=== PATIENT | female | born 1950 | race Caucasian/White ===

== ENCOUNTER 2023-09-14 15:45 | Emergency (ER) | payer MEDICARE ==
[~2023-09-14] VITALS: Ht 160 cm; Wt 46.9 kg
[~2023-09-14 15:45] MED LIST: DULOXETINE CAP 30MG; LEVOTHYROXIN TAB 50MCG; RANITIDINE TAB 300MG
[2023-09-14 17:07] LABS: BASOPHILS % (AUTO) 0.6 % (0-1); EOSINOPHILS % (AUTO) 0.6 % (0-6); HEMATOCRIT 37.6 % (35.0-45.0); HEMOGLOBIN 12.6 g/dl (12.0-16.0); LYMPHOCYTES # (AUTO) 1.1 X10'3 (1.1-4.8); LYMPHOCYTES % (AUTO) 18.2 % (21-51); MEAN CORPUSCULAR HEMOGLOBIN 30.1 PG (27.0-31.0); MEAN CORPUSCULAR HGB CONC 33.4 g/dL (33.0-36.5); MEAN CORPUSCULAR VOLUME 90.2 FL (78-98); MEAN PLATELET VOLUME 7.8 FL (7.4-10.4); MONOCYTES # (AUTO) 0.4 X10'3 (0-0.9); MONOCYTES % (AUTO) 6.2 % (2-12); NEUTROPHILS # (AUTO) 4.7 X10'3 (1.8-7.7); NEUTROPHILS % (AUTO) 74.4 % (42-75); PLATELET COUNT 266 X10'3 (140-440); RED BLOOD COUNT 4.17 X10'6 (4.20-5.60); RED CELL DISTRIBUTION WIDTH 14.9 % (11.5-14.5); WHITE BLOOD COUNT 6.3 X10'3 (4.5-11.0)
[2023-09-14 17:21] LABS: ALANINE AMINOTRANSFERASE 30 U/L (12-78); ALBUMIN 3.5 G/DL (3.4-5.0); ALBUMIN/GLOBULIN RATIO 0.9 (1.1-1.5); ALKALINE PHOSPHATASE 45 IU/L (46-116); ANION GAP 8 (8-16); ASPARTATE AMINO TRANSFERASE 24 U/L (10-37); BILIRUBIN,TOTAL 0.3 MG/DL (0.1-1.0); BLOOD UREA NITROGEN 21 MG/DL (7-18); BUN/CREATININE RATIO 28.8 (10.0-20.0); CALCIUM 8.7 MG/DL (8.5-10.1); CHLORIDE 102 MMOL/L (99-107); CREATININE 0.73 MG/DL (0.40-0.90); GLUCOSE 104 MG/DL (70-104); LIPASE 38 U/L (16-77); POTASSIUM 3.9 MMOL/L (3.5-5.1); SODIUM 135 MMOL/L (135-145); TOTAL CARBON DIOXIDE 25.2 MMOL/L (24-32); TOTAL PROTEIN 7.4 G/DL (6.4-8.2); eCRCL 49 ML/MIN; eGFR 78 ML/MIN
[2023-09-14 17:41] LABS: BILIRUBIN,URINE NEGATIVE (Neg); CLARITY,URINE CLEAR (Clear); COLOR,URINE STRAW (Yellow); GLUCOSE, URINE NEGATIVE (Neg); KETONES,URINE NEGATIVE (Neg); LEUKOCYTE ESTERASE ,URINE NEGATIVE (Neg); NITRITES, URINE NEGATIVE (Neg); OCCULT BLOOD,URINE SMALL (Neg); PROTEIN,URINE NEGATIVE (Neg); UROBILINOGEN,URINE 0.2 E.U/dL (0.2-1.0)
[2023-09-14 17:44] LABS: UA COLLECTION TYPE CLN CATCH MIDSTREAM
[2023-09-14 17:50] LABS: WBC,URINE NONE SEEN /HPF (0-4)
[2023-09-14 17:51] LABS: BACTERIA,URINE NONE SEEN /HPF (Neg); MUCUS STRANDS NONE SEEN /LPF (Neg); RBC,URINE 0-2 /HPF (0-2); SQUAMOUS EPITHELIAL CELL,UR NONE SEEN /LPF (FEW)
[2023-09-14 18:39] LABS: PRO BRAIN NATRIURETIC PEPTIDE 148 PG/ML (0-450)
[2023-09-14 19:53] VITALS: BP 126/75; PULSE 68; RESP 14; TEMP 98.2; O2SAT 99
== END 2023-09-14 19:57 | disposition home or self-care (01) ==
LOC: ER 15:46
DX: B34.9 Viral infection, unspecified (principal); Z20.822 Contact with and (suspected) exposure to COVID-19
CPT/HCPCS: 36415; 71045; 80053; 81001; 83690; 83880; 84484; 85025; 87811; 93005; 99285

== ENCOUNTER 2024-09-24 12:35 | Emergency (ER) | payer MEDICARE, MEDICAID ==
[~2024-09-24] VITALS: Ht 160 cm; Wt 44.4 kg
[2024-09-24 12:37] VITALS: TEMP 97
[2024-09-24 13:42] LABS: BASOPHILS % (AUTO) 0.1 % (0-1); EOSINOPHILS % (AUTO) 0.2 % (0-6); HEMATOCRIT 34.7 % (35.0-45.0); HEMOGLOBIN 11.6 g/dl (12.0-16.0); LYMPHOCYTES # (AUTO) 0.8 X10'3 (1.1-4.8); LYMPHOCYTES % (AUTO) 7.1 % (21-51); MEAN CORPUSCULAR HEMOGLOBIN 30.2 PG (27.0-31.0); MEAN CORPUSCULAR HGB CONC 33.5 g/dL (33.0-36.5); MEAN CORPUSCULAR VOLUME 89.9 FL (78-98); MEAN PLATELET VOLUME 8.3 FL (7.4-10.4); MONOCYTES # (AUTO) 1.1 X10'3 (0-0.9); NEUTROPHILS # (AUTO) 9.2 X10'3 (1.8-7.7); NEUTROPHILS % (AUTO) 82.6 % (42-75); PLATELET COUNT 327 X10'3 (140-440); RED BLOOD COUNT 3.86 X10'6 (4.20-5.60); RED CELL DISTRIBUTION WIDTH 14.4 % (11.5-14.5); WHITE BLOOD COUNT 11.1 X10'3 (4.5-11.0)
[2024-09-24 14:11] LABS: ALANINE AMINOTRANSFERASE 24 U/L (12-78); ALBUMIN 2.6 G/DL (3.4-5.0); ALBUMIN/GLOBULIN RATIO 0.5 (1.1-1.5); ALKALINE PHOSPHATASE 66 IU/L (46-116); ANION GAP 8 (8-16); ASPARTATE AMINO TRANSFERASE 16 U/L (10-37); BILIRUBIN,TOTAL 0.5 MG/DL (0.1-1.0); BLOOD UREA NITROGEN 9 MG/DL (7-18); BUN/CREATININE RATIO 12.7 (10.0-20.0); CALCIUM 8.8 MG/DL (8.5-10.1); CHLORIDE 94 MMOL/L (99-107); CREATININE 0.71 MG/DL (0.40-0.90); GLUCOSE 111 MG/DL (70-104); POTASSIUM 3.1 MMOL/L (3.5-5.1); SODIUM 131 MMOL/L (135-145); TOTAL CARBON DIOXIDE 29.2 MMOL/L (24-32); TOTAL PROTEIN 7.8 G/DL (6.4-8.2); eCRCL 47 ML/MIN; eGFR 80 ML/MIN
[2024-09-24 14:19] LABS: PRO BRAIN NATRIURETIC PEPTIDE 2064 PG/ML (0-450)
[2024-09-24 15:05] VITALS: BP 107/66; PULSE 81; RESP 16; O2SAT 96
== END 2024-09-24 15:08 | disposition home or self-care (01) ==
LOC: ER 12:35
DX: R00.2 Palpitations (principal); F32.A Depression, unspecified; R50.9 Fever, unspecified; Z88.2 Allergy status to sulfonamides
CPT/HCPCS: 36415; 71045; 80053; 83880; 84484; 85025; 93005; 99285

== ENCOUNTER 2024-11-19 20:46 | Emergency (ER) | payer MEDICARE, MEDICAID ==
[~2024-11-19] VITALS: Ht 165.1 cm; Wt 45.0 kg
[2024-11-19 20:57] VITALS: BP 103/53; PULSE 69; RESP 14; O2SAT 99
[2024-11-19 21:20] LABS: BASOPHILS % (AUTO) 0.7 % (0-1); EOSINOPHILS % (AUTO) 0.7 % (0-6); HEMATOCRIT 35.4 % (35.0-45.0); HEMOGLOBIN 12.2 g/dl (12.0-16.0); LYMPHOCYTES # (AUTO) 1.7 X10'3 (1.1-4.8); LYMPHOCYTES % (AUTO) 28.3 % (21-51); MEAN CORPUSCULAR HEMOGLOBIN 30.9 PG (27.0-31.0); MEAN CORPUSCULAR HGB CONC 34.5 g/dL (33.0-36.5); MEAN CORPUSCULAR VOLUME 89.5 FL (78-98); MEAN PLATELET VOLUME 7.9 FL (7.4-10.4); MONOCYTES # (AUTO) 0.5 X10'3 (0-0.9); MONOCYTES % (AUTO) 7.8 % (2-12); NEUTROPHILS # (AUTO) 3.8 X10'3 (1.8-7.7); NEUTROPHILS % (AUTO) 62.5 % (42-75); PLATELET COUNT 250 X10'3 (140-440); RED BLOOD COUNT 3.95 X10'6 (4.20-5.60); RED CELL DISTRIBUTION WIDTH 15.1 % (11.5-14.5); WHITE BLOOD COUNT 6.2 X10'3 (4.5-11.0)
[2024-11-19 21:34] LABS: ALANINE AMINOTRANSFERASE 27 U/L (12-78); ALBUMIN 3.5 G/DL (3.4-5.0); ALBUMIN/GLOBULIN RATIO 0.8 (1.1-1.5); ALKALINE PHOSPHATASE 42 IU/L (46-116); ANION GAP 2 (8-16); ASPARTATE AMINO TRANSFERASE 18 U/L (10-37); BILIRUBIN,TOTAL 0.3 MG/DL (0.1-1.0); BLOOD UREA NITROGEN 18 MG/DL (7-18); BUN/CREATININE RATIO 28.1 (10.0-20.0); CALCIUM 8.6 MG/DL (8.5-10.1); CHLORIDE 105 MMOL/L (99-107); CREATININE 0.64 MG/DL (0.40-0.90); GLUCOSE 130 MG/DL (70-104); POTASSIUM 3.6 MMOL/L (3.5-5.1); SODIUM 137 MMOL/L (135-145); TOTAL CARBON DIOXIDE 30.3 MMOL/L (24-32); TOTAL PROTEIN 7.7 G/DL (6.4-8.2); eCRCL 53 ML/MIN; eGFR 90 ML/MIN
[2024-11-19 21:43] LABS: PRO BRAIN NATRIURETIC PEPTIDE 115 PG/ML (0-450)
[2024-11-20 01:27] LABS: D-DIMER 0.31 MG/L FEU (0-0.50)
[2024-11-20 01:34] VITALS: TEMP 98.6
== END 2024-11-20 01:36 | disposition home or self-care (01) ==
LOC: ER 20:46
DX: R07.9 Chest pain, unspecified (principal); M54.6 Pain in thoracic spine; F32.A Depression, unspecified; F41.9 Anxiety disorder, unspecified; Z88.2 Allergy status to sulfonamides
CPT/HCPCS: 36415; 71045; 80053; 83880; 84484; 85025; 85379; 93005; 99285

== ENCOUNTER 2025-04-24 18:08 | Inpatient (IN) | payer MEDICARE, MEDICAID ==
[~2025-04-24] VITALS: Ht 160 cm; Wt 42.8 kg
[~2025-04-24 18:08] MED LIST changes: +GABA-530 PO; +LEVO50TA8 PO; -LEVOTHYROXIN TAB 50MCG; +PANT40TA54 PO; +QUET25TA36 PO; -RANITIDINE TAB 300MG; +SERT-432 PO
--- NOTE | 2025-04-24 18:49 | Physician Documentation ---
History of Present Illness ~ Chief Complaint: Mental Health Eval Stated Complaint: SI Time Seen by MD: 18:45 Primary Medical Doctor: VALE Source: patient, family Mode of Arrival: POV Exam Limitations: no limitations HPI 74-year-old female with history of anxiety and depression has been following her mental health provider and having changes to her medications which has included changing from Prozac which she was on for approximately 4-6 weeks to Zoloft which she has now stopped with increased anxiety and depression as well as feelings of hopelessness and suicide. Patient states that 1 of the most difficult problems of hers to overcome currently is insomnia. Patient was recently admitted to the hospital for heart palpitations and given Restoril to sleep which helped greatly she was discharged on 20/5 mg of Seroquel which she states has not helped she even increased it to 50 mg which also did not help her sleep. Patient states she can go to sleep but only sleep for a couple hours. She is currently under the care of a provider trying to adjust medications including medications for anxiety and depression. Patient feels suicidal but does not have a plan currently. Caregiver/daughter at triage states that she has been staying with her for a couple days and did gesture that she would potentially stab herself. Patient continues to state that the hopelessness makes her feel like she wants to the also endorses she needs to have be here for her dog and that she is a Buddhist. Patient here for help with medication management insomnia depression and anxiety Medication Reconciliation Allergies: Coded Allergies: Sulfa (Sulfonamide Antibiotics) (Verified Allergy, Unknown, 04/17/25) Scheduled Gabapentin (Gabapentin), 1 CAP PO TID, (Reported) Levothyroxine Sodium (Levothyroxine Sodium), 1 TAB PO DAILY, (Reported) Pantoprazole Sodium (Pantoprazole Sodium), 1 TAB PO DAILY, (Reported) Quetiapine Fumarate (Quetiapine Fumarate), 1 TAB PO HS, (Reported) Discontinued Medications Sertraline HCl (Sertraline HCl), 1 TAB PO DAILY, (Reported) Discontinued Reason: Other [Duloxetine Cap 30MG], (Reported) Discontinued Reason: Other Past Medical History Past Medical History: *CARDIOVASCULAR*, Thyroid (unspecified), Anxiety, Depression Past Surgical History: no surgical history Patient History: Patient reports no known family medical history. Alcohol Use: Rarely Drug Use: none Lives In: Home Occupation: employed Review of Systems All Other Systems at this time: Reviewed and Negative Psychiatric: Reports: see HPI, anxiety, suicidal Physical Exam Vital Signs: RN Vital Signs have been reviewed: Yes, Temperature: 98.3, Source: Temporal, Heart Rate: 88, Respiratory Rate: 18, BP: 145/59, Pulse Oximetry: 0, Weight: 45.950 Physical Exam General: This is a thin older female, appears extremely anxious and unable to sit still, easily distractible Heart: Regular rate and rhythm, normal-appearing peripheral perfusion Lungs: normal work of breathing, normal oxygen saturation on room air Neuro: Alert and oriented Psychiatric: Appears extremely anxious, has psychomotor agitation, appears to have difficulty concentrating, endorses thoughts of self-harm with no current specific plan, does not appear to be responding to internal stimuli. Neurologic: oriented x4 Appearance/Memory/Insight: appropriate appearance, neat, no memory impairment Behavior/Eye contact/Speech: cooperative, good eye contact, increased rate of speech Thought/Hallucinations: normal thought pattern Affect: anxious Progress Results/Orders Results/Orders Orders - BRONWYN LENTZ MD Med Rec (04/24/25 18:33) Close Observation Level (04/24/25 18:33) Covid19 Binax Poc Result Entry (04/24/25 18:33) Completed Orders - BRONWYN LENTZ MD Cbc/Diff (04/24/25 18:33) Drug Screen, Urine (04/24/25 18:33) Ethanol (04/24/25 18:33) TSH (04/24/25 18:33) BMP (04/24/25 18:33) Regular Diet (04/25/25 Breakfast) Ua With Microscopic (04/24/25 19:39) Vital Signs 04/24/25 04/25/25 04/25/25 04/25/25 18:22 06:05 07:50 15:16 Temp 98.3 97.9 98.0 Pulse 88 73 71 Resp 18 15 16 15 B/P (MAP) 145/59 108/63 (78) 119/63 (81) Pulse Ox 0 100 97 O2 Delivery Room Air Laboratory Tests Test 04/24/25 18:36 04/24/25 18:42 04/24/25 19:39 SARS-CoV-2 Antigen (Rapid) Negative White Blood Count 6.1 Red Blood Count 4.01 L Hemoglobin 12.1 Hematocrit 35.8 Mean Corpuscular Volume 89.3 Mean Corpuscular Hemoglobin 30.2 Mean Corpuscular Hemoglobin Concent 33.9 Red Cell Distribution Width 14.1 Platelet Count 269 Mean Platelet Volume 7.3 L Neutrophils (%) (Auto) 72.3 Lymphocytes (%) (Auto) 16.5 L Monocytes (%) (Auto) 10.5 Eosinophils (%) (Auto) 0.3 Basophils (%) (Auto) 0.4 Neutrophils # (Auto) 4.4 Lymphocytes # (Auto) 1.0 L Monocytes # (Auto) 0.6 Eosinophils # (Auto) 0.0 Basophils # (Auto) 0.0 CBC Comment Sodium Level 133 L Potassium Level 3.2 L Chloride Level 97 L Carbon Dioxide Level 30.2 Anion Gap 6 L Blood Urea Nitrogen 15 Creatinine 0.57 Estimated GFR/1.73 m2 > 90 BUN/Creatinine Ratio 26.3 H Glucose Level 111 H Calcium Level 8.7 Albumin 3.4 Thyroid Stimulating Hormone (TSH) 2.03 Chemistry Comments Ethyl Alcohol Level < 10 Urine Specimen Description Cln catch midstream Urine Color Yellow Urine Clarity Clear Urine pH 6.0 Urine Specific [place] 1.010 Urine Protein Negative Urine Glucose (UA) Negative Urine Ketones Negative Urine Occult Blood Small Urine Nitrite Negative Urine Bilirubin Negative Urine Urobilinogen 0.2 Urine Leukocyte Esterase Negative Urine RBC 0-2 Urine WBC None seen Urine Squamous Epithelial Cells Few Urine Bacteria None seen Volume Urine Centrifuged 10 ml Urine Comment Urine Opiates Screen Negative Urine Methadone Screen Negative Urine Fentanyl Screen Negative Urine Barbiturates Screen Negative Urine Phencyclidine Screen Negative Urine Amphetamines Screen Negative Urine Benzodiazepines Screen Negative Urine Cocaine Screen Negative Urine Cannabinoids Screen Negative Drug Screen Comment Medical Decision Making Differential Dx:Considerations: Include: Anxiety, Depression, Substance abuse, Suicidal Differential Diagnosis The patient presents with severe anxiety and suicidal thoughts without a specific plan. She appears in distress and unable to function. I feel she would benefit from mental health evaluation given her disability and dangerous to self. She was placed on a hold. Mental screening labs are unremarkable except for mild hypokalemia, which is not dangerously low. She is medically cleared for mental health evaluation. She was given medication to help her sleep. 04/25/25- Abimbola Lentz MD I took over care of this patient from previous ED physician. I assessed the patient and she is stable. She remained stable throughout my shift. 04/26/25- Abimbola Lentz MD I took over care of this patient from previous ED physician. I assessed the patient and she is stable. She remained stable throughout my shift. Departure Disposition: 30 STILL A PATIENT Impression: Primary Impression: Anxiety Additional Impression: Suicidal ideation Additional Instructions: Transfer orders for [facility]: At this time there is no evidence of an emergent medical condition that would preclude (admission/transfer) to a psychiatric unit via [facility] protocol for further psychiatric, as well as medical evaluation and treatment. At this time I have no reason to believe that transfer via [facility] protocol would have serious medical compromise in the patient's health. Referrals: NO PRIMARY CARE PROVIDER (PCP) Signature Scribe Signature: No scribe Attestation: The note accurately reflects work and decisions made by me.Karla Vega - SERVICE WORKER 04/24/25 18:49 KARLA VEGA NP Apr 24, 2025 18:49 ROOSEVELT MAHMOOD MD Apr 24, 2025 19:08 BRONWYN LENTZ MD Apr 25, 2025 09:24
[2025-04-24 18:53] LABS: MEAN PLATELET VOLUME 7.3 FL (7.4-10.4); RED CELL DISTRIBUTION WIDTH 14.1 % (11.5-14.5)
[2025-04-24 19:15] LABS: CREATININE 0.57 MG/DL (0.40-0.90); TOTAL CARBON DIOXIDE 30.2 MMOL/L (24-32); eCRCL 61 ML/MIN; eGFR > 90 ML/MIN
[2025-04-24 19:21] LABS: ETHANOL < 10 MG/DL (<10)
[2025-04-24 20:27] LABS: LEUKOCYTE ESTERASE ,URINE NEGATIVE (Neg); NITRITES, URINE NEGATIVE (Neg); OCCULT BLOOD,URINE SMALL (Neg)
[2025-04-24 20:32] LABS: UA COLLECTION TYPE CLN CATCH MIDSTREAM
[2025-04-24 20:47] LABS: SQUAMOUS EPITHELIAL CELL,UR FEW /LPF (FEW)
[2025-04-24 20:52] LABS: URINE AMPHETAMINE SCREEN NEGATIVE (Neg); URINE BARBITUATE SCREEN NEGATIVE (Neg); URINE BENZODIAZEPINES SCREEN NEGATIVE (Neg); URINE CANNABINOID SCREEN NEGATIVE (Neg); URINE COCAINE SCREEN NEGATIVE (Neg); URINE METHADONE SCREEN NEGATIVE (Neg); URINE OPIATE SCREEN NEGATIVE (Neg); URINE PHENCYCLIDINE SCREEN NEGATIVE (Neg)
[2025-04-24] MEDS: potassium Cl 20 mEq SR tablet PO ONE (21:10)
[2025-04-24] MEDS: loperamide 2mg capsule PO ONE (22:22)
[2025-04-25 15:16] VITALS: BP 119/63; PULSE 71; RESP 15; TEMP 98; O2SAT 97
[2025-04-25] MEDS ORDERED: mag hydrox/Alum hydrox/simeth 30ml oral suspension PO PRN (15:45)
[2025-04-25] MEDS ORDERED: magnesium hydroxide 30ml (MOM) UD suspension PO PRN (15:45)
[2025-04-25] MEDS ORDERED: loperamide 2mg capsule PO PRN (15:45)
[2025-04-25 17:24] VITALS: RESP 15; O2SAT 97
[2025-04-25 19:00] VITALS: RESP 16; O2SAT 99
[2025-04-25 20:00] VITALS: BP 126/66; PULSE 79; RESP 16; TEMP 96.9; O2SAT 99
[2025-04-26 07:00] VITALS: BP 132/76; PULSE 84; RESP 12; RESP 14; TEMP 98.2; O2SAT 97; O2SAT 98
[2025-04-26] MEDS: pantoprazole 40mg Tablet.DR PO SCH (07:11)
[2025-04-26] MEDS: levoTHYROXINE 25mcg tablet PO SCH (07:11)
[2025-04-26 08:47] LABS: CHOL/HDL RATIO 3.6 (0.00-4.99); CREATININE 0.73 MG/DL (0.40-0.90); LDL CHOLESTEROL 142 MG/DL (50-100); TOTAL CARBON DIOXIDE 28.9 MMOL/L (24-32); eCRCL 44 ML/MIN; eGFR 78 ML/MIN
[2025-04-26] MEDS ORDERED: lactose-reduced food (Ensure Enlive) - 237ml bottle PO SCH (13:00)
--- NOTE | 2025-04-26 13:18 | HISTORY AND PHYSICAL ---
History & Physical Providers to ~ History of Present Illness Reason for Admit\Complaint: SI History of Present Illness Jhony Hi is a 74-year-old female with a past medical history of hypothyroidism, anxiety disorder, MDD who was admitted to [facility] due to suicidal ideation. Patient feels suicidal but does not have a plan currently. However, patient's daughter stated in ED that she has been staying with her for a couple days and carried out gesture that she would potentially stab herself. Of note, patient was recently admitted to [facility] and underwent workups for palpitations. However, workups including EKG, telemetry, echocardiogram, thyroid panel, vitals were unremarkable and was discharged with antidepressant. Patient denies prior IA/CAD, CVA, DVT/PE, or GIB. Patient currently denies SI, HI, chest pain, palpitations, shortness of breath, abdominal pain, n/v/d, fever, chills, dysuria. Allergies: Coded Allergies: Sulfa (Sulfonamide Antibiotics) (Verified Allergy, Unknown, 04/17/25) Home Medications Home Medications Active Reported Pantoprazole Sodium 40 Mg Tablet.dr 1 Tab PO DAILY Levothyroxine Sodium 50 Mcg Tablet 1 Tab PO DAILY Gabapentin 100 Mg Capsule 1 Cap PO TID Quetiapine Fumarate 25 Mg Tablet 1 Tab PO HS Past Medical History Past Medical History Hypothyroidism Anxiety disorder MDD GERD Past Surgical History Surgical History Comment Noncontributory Family History Family History: Patient reports no known family medical history. Past Social History Social History Comment Alcohol: Rarely Tobacco: Denies Illicit drug use: Denies Living situation: Lives home alone ROS ROS Other than positives in HPI, all 14 review of systems are negative Exam Vitals: Vital Signs Date Time Temp Pulse Resp B/P (MAP) Pulse Ox O2 Delivery O2 Flow Rate FiO2 04/26/25 07:00 14 97 Room Air 04/26/25 07:00 98.2 84 132/76 (94) General: A&Ox 3, NAD HEENT: Normocephalic, PERRLA Neck: Supple, trachea midline, no JVD Chest: Clear to auscultation bilaterally Cardiovascular: RRR, S1&S2 Abdomen: Soft and nontender Extremities: No cyanosis/clubbing/or edema Central Nervous System: CN II-XII intact, no focal deficits Musculoskeletal: No paraspinal muscle tenderness, no muscle spasm Skin: Warm and intact Diagnostic Data Last Recorded Lab Results: 04/24/25 1842 04/26/25 0818 Additional Plan SI MDD Anxiety disorder Hypothyroidism -vss, labs unremarkable, continue management under psychiatrist -Hospitalist team will continue to follow for patient's medical needs Date of Service: Apr 26, 2025 Billing Provider: CATALINA PERSAUD Common Visit Codes: [id number] INP/OBS CARE (HIGH) CATALINA PERSAUD Apr 26, 2025 13:18
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
[2025-04-26] MEDS: lactose-reduced food (Ensure Enlive) - 237ml bottle PO SCH (17:35)
[2025-04-26 19:00] VITALS: RESP 16; O2SAT 99
[2025-04-26 20:00] VITALS: BP 119/57; PULSE 95; RESP 16; TEMP 97.9; O2SAT 99
[2025-04-27 07:00] VITALS: RESP 16; O2SAT 99
[2025-04-27 08:00] VITALS: BP 105/61; PULSE 74; RESP 16; TEMP 97.7; O2SAT 99
[2025-04-27 11:12] LABS: HBSAG SCREEN Negative (Negative); HEP B CORE AB, IGM Negative (Negative); HEP B CORE AB, TOT Negative (Negative)
--- NOTE | 2025-04-27 13:58 | PROGRESS NOTE ---
Progress Note Dictate Providers to CC ~ Central Line/PICC still needed: N\\A Antibiotic Ordered?: No MRSA Education MRSA Education Provided to pt: No Objective Vitals Vital Signs Date Time Temp Pulse Resp B/P (MAP) Pulse Ox O2 Delivery O2 Flow Rate FiO2 04/27/25 08:00 97.7 74 16 105/61 (76) 99 Room Air Lab Results: 04/24/25 1842 04/26/25 0818 Problem\\Assessment\\Plan Problems/Diagnosis: (1) Major depressive disorder, recurrent (2) Suicidal ideation (3) Anxiety Psychiatrist's Progress Note Date of Service: Apr 27, 2025 Notes CHART REVIEW Pt is a 74 year old white female admitted on a 5150 for DTS. 5150 states On admit to the emergency room your daughter/friend reports you commented you would stab yourself. You endorse suicide thoughts." Pt denies SI/HI/AH/VH. Patient appears anxious and depressed stating "I just feel so hopeless." ASSESSMENT The patient was interviewed in observation room. The patient was actively standing in hallway talking on telephone. The patient endorses "I feel better but I am still anxious and depressed." "I feel like I need something more to hold it together." "The medication defiantly helped me sleep and took the edge off my anxiety." The patient endorses adequate sleep and food intake. "I have been eating since I been here." Denies HI. Denies AVH. The patient is stable no acute distress noted. The patient presents as depressed, anxious, and engaged during session. Per staff report patient is medication compliant. Per staff report no abnormal behaviors. Will continue daily assessment and adjusting treatment as needed. Closely monitor behavior and response to medication during hospitalization. The patient endorses "several years ago" she was once on Strattera and Vyvanse for ADHD but did not like the way they made her feel. Results Of any Diagn. Testing REVIEW OF LABS WBC 5.8 RBC 4.47 HEMOGLOBIN 12.9 HEMATOCRIT 38.2 PLATELET 243 SODIUM 136 POTASSIUM 3.9 CHLORIDE 102 ANION GAP 6 BUN 11 CREATININE 0.68 GLUCOSE 106 CALCIUM 8.6 ALBUMIN 3.9 TSH 1.69 URINALYSIS NEGATIVE URINE DRUG SCREEN NEGATIVE Appearnace: Other (APPROPRIATE.AVERAGE HEIGHT, THIN FEMALE.WEARNING GREEN SCRUBS.RED GLASSES. SHORT BURGUNDY HAIR.) Speech: Other (CIRCUMSTANTIAL) Eye Contact: Other (INTERMITTENT) Motor Activity: Normal Affect: Flat Mood: Anxious, Depressed Orientation Impairment: None Memory Impairment: None Attention: Normal Hallucinations: None Other: None Suicidality: None Homicidality: None Delusions: None Behavior: Cooperative Insight: Poor Judgment: Poor Treatment REMERON 15MG QHS TRAZODONE 50 MG P.O. Q.6 PRN HYDROXYZINE 50 MG P.O. Q.6 PRN THORAZINE 50 MG P.O. Q.6 PRN BENADRYL 50 MG P.O. Q.6 PRN 5150 HOLD-DTS- Patient is unable to formulate a plan to safety due to the severity of their mental illness. We are still titrating medications to an effective dose while maintaining a therapeutic environment to prevent decompensation and readmission. Monitoring by Staff, Milieu, Group, and Individual counseling as needed -- According to the [place] Suicide Assessment the above named patient is on Q15 MINUTE CHECKS. Total time spent 50 minutes on REVIEW OF Clinical notes [X ] RN notes [X] PCT documentation [X] SW notes Labs [ X] Medications [X] Care trends/care activity [X] Vitals [X] DISCUSSION WITH av specialist [X] Staff SW Treatment Team [X] Discharge UNSURE AT THIS TIME. DISCHARGE HOME ONCE STABLE. CODING VISIT-PSYCHIATRY Date of Service: Apr 27, 2025 Billing Provider: DAVID NGUYEN APRN Psych Common Visit Codes: [id number] INP/OBS CARE(Mod) DAVID NGUYEN APRN Apr 27, 2025 13:58
[2025-04-27 19:00] VITALS: RESP 16; O2SAT 98
[2025-04-27 20:00] VITALS: BP 123/59; PULSE 88; RESP 16; TEMP 97.3; O2SAT 98
[2025-04-28 07:00] VITALS: RESP 16; O2SAT 99
[2025-04-28 08:13] VITALS: BP 149/75; PULSE 91; RESP 16; TEMP 97; O2SAT 99
[2025-04-28 11:00] VITALS: BP 135/72; PULSE 87
--- NOTE | 2025-04-28 13:38 | PROGRESS NOTE ---
Progress Note Dictate Providers to CC ~ Central Line/PICC still needed: N\\A Antibiotic Ordered?: No MRSA Education MRSA Education Provided to pt: No Objective Vitals Vital Signs Date Time Temp Pulse Resp B/P (MAP) Pulse Ox O2 Delivery O2 Flow Rate FiO2 04/28/25 11:00 87 135/72 (93) 04/28/25 08:13 97.0 16 99 Room Air Lab Results: 04/24/25 1842 04/26/25 0818 Problem\\Assessment\\Plan Problems/Diagnosis: (1) Major depressive disorder, recurrent (2) Suicidal ideation (3) Anxiety Psychiatrist's Progress Note Date of Service: Apr 28, 2025 Notes CHART REVIEW Pt is a 74 year old white female admitted on a 5150 for DTS. 5150 states On admit to the emergency room your daughter/friend reports you commented you would stab yourself. You endorse suicide thoughts." Pt denies SI/HI/AH/VH. Patient appears anxious and depressed stating "I just feel so hopeless." ASSESSMENT The patient was interviewed in observation room. The patient was actively standing in hallway talking on telephone. The patient endorses "I am not doing well, a lot going on in my mind about some bad decision I made and some things I need to take care of." "I know I have issues." "I have so many bills and not enough money.' Denies HI. Denies AVH. The patient is stable no acute distress noted. The patient presents as depressed, anxious, restless and engaged during session. Per staff report patient is medication compliant. Per staff report no abnormal behaviors. Will continue daily assessment and adjusting treatment as needed. Closely monitor behavior and response to medication during hospitalization. The patient signed LM and I am waiting on fax from [facility] with patient's notes. Results Of any Diagn. Testing REVIEW OF LABS WBC 5.8 RBC 4.47 HEMOGLOBIN 12.9 HEMATOCRIT 38.2 PLATELET 243 SODIUM 136 POTASSIUM 3.9 CHLORIDE 102 ANION GAP 6 BUN 11 CREATININE 0.68 GLUCOSE 106 CALCIUM 8.6 ALBUMIN 3.9 TSH 1.69 URINALYSIS NEGATIVE URINE DRUG SCREEN NEGATIVE Appearnace: Disheveled (APPROPRIATE.AVERAGE HEIGHT, THIN FEMALE.WEARNING GREEN SCRUBS.RED GLASSES. SHORT BURGUNDY HAIR.) Speech: Other (CIRCUMSTANTIAL) Eye Contact: Avoidant Motor Activity: Restless Mood: Anxious, Depressed Orientation Impairment: None Memory Impairment: None Attention: Normal Hallucinations: None Other: None Suicidality: None Homicidality: None Delusions: None Behavior: Hyperactive Insight: Poor Judgment: Poor Treatment Increase REMERON 30MG QHS TRAZODONE 50 MG P.O. Q.6 PRN HYDROXYZINE 50 MG P.O. Q.6 PRN THORAZINE 50 MG P.O. Q.6 PRN BENADRYL 50 MG P.O. Q.6 PRN Initiate DEPAKOTE 250 MG P.O. Q.H.S-MOOD STABILIZER. GABAPENTIN 200 MG PO TID-ANXIETY 5150 HOLD-DTS- Patient is unable to formulate a plan to safety due to the severity of their mental illness. We are still titrating medications to an effective dose while maintaining a therapeutic environment to prevent decompensation and readmission. Monitoring by Staff, Milieu, Group, and Individual counseling as needed -- According to the [place] Suicide Assessment the above named patient is on Q15 MINUTE CHECKS. Total time spent 40 minutes on REVIEW OF Clinical notes [X ] RN notes [X] PCT documentation [X] SW notes Labs [ X] Medications [X] Care trends/care activity [X] Vitals [X] DISCUSSION WITH smudger [X] Staff SW Treatment Team [X] Discharge UNSURE AT THIS TIME. DISCHARGE HOME ONCE STABLE. CODING VISIT-PSYCHIATRY Date of Service: Apr 28, 2025 Billing Provider: DAVID NGUYEN APRN Psych Common Visit Codes: [id number] INP/OBS CARE(Mod) DAVID NGUYEN APRN Apr 28, 2025 13:38
--- NOTE | 2025-04-28 18:42 | PROGRESS NOTE ---
Daily Progress Note Providers to CC ~ Antibiotic Timeout Antibiotic Ordered?: No Subjective Was seen in mental health unit no current issues looks comfortable ambulating well Objective Vital Signs Date Time Temp Pulse Resp B/P (MAP) Pulse Ox O2 Delivery O2 Flow Rate FiO2 04/28/25 11:00 87 135/72 (93) 04/28/25 08:13 97.0 16 99 Room Air Result Diagram: 04/24/25 1842 04/26/25 0818 General-patient not in any acute distress, alert awake age-appropriate, looks comfortable HEENT-atraumatic normocephalic, neck supple without elevated JVD, No lymphadenopathy bilaterally. Eyes-no icterus or pallor seen in eyes Chest-clear to auscultation bilaterally, breathing nonlabored no tachypnea, no wheezing, no crepitation, no crackles. Heart-S1-S2 normal, regular heart rate no murmur Abdomen bowel sounds positive on auscultation, soft nondistended nontender no guarding, no rigidity Skin no active skin rash Neurology-grossly intact, nonfocal alert awake cooperated during physical examination Extremity- no pedal edema able to move all 4 extremities, ambulate Problem\Assessment\Plan SI MDD Anxiety disorder Hypothyroidism -vss, labs unremarkable, continue management under psychiatrist -Hospitalist team will continue to follow for patient's medical needs Date of Service: Apr 28, 2025 Billing Provider: REBECCA BELL MD Common Visit Codes: [id number] INP/OBS CARE(LOW) REBECCA BELL MD Apr 28, 2025 18:42
[2025-04-28 19:28] VITALS: RESP 17; O2SAT 100
[2025-04-28 19:29] VITALS: BP 134/79; PULSE 82; RESP 17; TEMP 97.5; O2SAT 100
[2025-04-29 07:00] VITALS: RESP 16; O2SAT 99
[2025-04-29 08:39] VITALS: BP 108/65; PULSE 80; RESP 16; TEMP 98.2; O2SAT 99
--- NOTE | 2025-04-29 14:58 | PROGRESS NOTE ---
Progress Note Dictate Providers to CC ~ Central Line/PICC still needed: N\\A Antibiotic Ordered?: No MRSA Education MRSA Education Provided to pt: No Objective Vitals Vital Signs Date Time Temp Pulse Resp B/P (MAP) Pulse Ox O2 Delivery O2 Flow Rate FiO2 04/29/25 08:39 98.2 80 16 108/65 (79) 99 Room Air Lab Results: 04/26/25 0818 Problem\\Assessment\\Plan Problems/Diagnosis: (1) Major depressive disorder, recurrent (2) Suicidal ideation (3) Anxiety Psychiatrist's Progress Note Date of Service: Apr 29, 2025 Notes CHART REVIEW Pt is a 74 year old white female admitted on a 5150 for DTS. 5150 states On admit to the emergency room your daughter/friend reports you commented you would stab yourself. You endorse suicide thoughts." Pt denies SI/HI/AH/VH. Patient appears anxious and depressed stating "I just feel so hopeless." ASSESSMENT The patient was interviewed in observation room. The patient was actively standing in hallway talking on telephone. 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 "All I have to think about is my money situation." The patient was repeating "I mad some choices, I made some bad choices." Denies SI. Denies HI. Denies AVH. The patient is stable no acute distress noted. The patient presents as depressed, anxious, and engaged during session. The patient anxiety and depression is situational related to her finances and responsibilities. Per staff report patient is medication compliant. Per staff report no abnormal behaviors. Will continue daily assessment and adjusting treatment as needed. Closely monitor behavior and response to medication during hospitalization. Results Of any Diagn. Testing REVIEW OF LABS WBC 5.8 RBC 4.47 HEMOGLOBIN 12.9 HEMATOCRIT 38.2 PLATELET 243 SODIUM 136 POTASSIUM 3.9 CHLORIDE 102 ANION GAP 6 BUN 11 CREATININE 0.68 GLUCOSE 106 CALCIUM 8.6 ALBUMIN 3.9 TSH 1.69 URINALYSIS NEGATIVE URINE DRUG SCREEN NEGATIVE Appearnace: Other (APPROPRIATE.AVERAGE HEIGHT, THIN FEMALE.WEARNING GREEN SCRUBS.RED GLASSES. SHORT BURGUNDY HAIR) Speech: Other (CIRCUMSTANTIAL) Eye Contact: Other (INTERMITTENT) Motor Activity: Normal Affect: Constricted Orientation Impairment: None Memory Impairment: None Attention: Normal Hallucinations: None Other: None Suicidality: None Homicidality: None Delusions: None Behavior: Cooperative Insight: Fair Judgment: Fair, Poor Treatment DISCONTINUED REMERON 30MG QHS TRAZODONE 50 MG P.O. Q.6 PRN HYDROXYZINE 50 MG P.O. Q.6 PRN THORAZINE 50 MG P.O. Q.6 PRN BENADRYL 50 MG P.O. Q.6 PRN DEPAKOTE 250 MG P.O. Q.H.S-MOOD STABILIZER. GABAPENTIN 200 MG PO TID-ANXIETY LEXAPRO 10MG PO DAILY-Per patient's request VOLUNTARY Monitoring by Staff, Milieu, Group, and Individual counseling as needed -- According to the [place] Suicide Assessment the above named patient is on Q15 MINUTE CHECKS. Total time spent 40 minutes on REVIEW OF Clinical notes [X ] RN notes [X] PCT documentation [X] SW notes Labs [ X] Medications [X] Care trends/care activity [X] Vitals [X] DISCUSSION WITH feedlot manager [X] Staff SW Treatment Team [X] Discharge UNSURE AT THIS TIME. DISCHARGE HOME ONCE STABLE. CODING VISIT-PSYCHIATRY Date of Service: Apr 29, 2025 Billing Provider: DAVID NGUYEN APRN Psych Common Visit Codes: [id number] INP/OBS CARE(Low) DAVID NGUYEN APRN Apr 29, 2025 14:58
[2025-04-29] MEDS: lactose-reduced food (Ensure Enlive) - 237ml bottle PO SCH (17:36)
[2025-04-29 19:00] VITALS: RESP 15; O2SAT 96
[2025-04-29 20:00] VITALS: BP 117/68; PULSE 82; RESP 15; TEMP 97.1; O2SAT 96
[2025-04-30 07:00] VITALS: RESP 16; O2SAT 98
[2025-04-30 08:00] VITALS: BP 137/71; PULSE 88; RESP 16; TEMP 97.5; O2SAT 98
--- NOTE | 2025-04-30 08:27 | DISCHARGE SUMMARY ---
Discharge Summary Providers to CC ~ Discharge Summary Admission Diagnosis: MAJOR DEPRESSIVE DISORDER, RECURRENT. ANXIETY. SUICIDAL IDEATION. Hospital Course DATE OF ADMISSION: DATE OF DISCHARGE: Discharge Diagnosis\\Comment: MAJOR DEPRESSIVE DISORDER, RECURRENT. ANXIETY. SUICIDAL IDEATION Operations\\Procedures: NONE Consultants: MEDICAL TEAM Complications: NONE Condition on DC: Stable 2 or more antipsychotic used: No 2/more antipsychotic addressed: No Does Patient smoke: No Smoking education given.: No New Medications: Escitalopram Oxalate (Escitalopram Oxalate) 10 Mg Tablet 10 MG PO DAILY for 14 Days, #14 TAB Temazepam (Temazepam) 15 Mg Capsule 1 CAP PO HSPRN PRN for sleep for 5 Days, #5 CAP 0 Refills Continued Medications: Gabapentin (Gabapentin) 100 Mg Capsule 1 CAP PO TID Levothyroxine Sodium (Levothyroxine Sodium) 50 Mcg Tablet 1 TAB PO DAILY Pantoprazole Sodium (Pantoprazole Sodium) 40 Mg Tablet.dr 1 TAB PO DAILY Discontinued Medications: Quetiapine Fumarate (Quetiapine Fumarate) 25 Mg Tablet 1 TAB PO HS Discharge Summary: CHART REVIEW Pt is a 74 year old white female admitted on a 5150 for DTS. 5150 states On admit to the emergency room your daughter/friend reports you commented you would stab yourself. You endorse suicide thoughts." Pt denies SI/HI/AH/VH. Patient appears anxious and depressed stating "I just feel so hopeless." Patient actively seen and examined on day of discharge 04/30/2025, by myself, RAFIQ Cooper. The patient is interviewed in observation room. The patient endorses "Good." "I slept really good last night." "today I am able to put some things together about my finances." Denies SI. Denies HI. Denies AVH. Jhony was able to formulate a safety plan which includes going to the emergency room if symptoms return or worsen. Call [phone] or [phone] for immediate assistance if necessary. During his hospital stay, Jhony receive multidisciplinary treatment he adhered to his medication regimen and has been pleasant and cooperative. He d enies any suicidal ideation (SI), homicidal ideation (HI), auditory/visual hallucination (HI). Staff has reported no behavioral issues, and the patient has been sleeping well, adequate food intake, with no mood or behavioral changes noted. The patient was E-Scribed a 14 day supply of medication preferred pharmacy. MENTAL STATUS EXAM APPEARANCE: APPROPRIATELY. DRESSED IN STREET CLOTHING. SPEECH: CIRCUMSTANCE EYE CONTACT: NORMAL AFFECT: CONGRUENT WITH MOOD MOOD: "GOOD" ORIENTATION IMPAIRMENT: NONE MEMORY IMPAIRMENT: NONE ATTENTION: NORMAL HALLUCINATIONS: NONE SUICIDALITY: NONE HOMICIDALITY: NONE DELUSIONS: NONE BEHAVIOR: COOPERATIVE, PLEASANT JUDGMENT: FAIR INSIGHT: POOR Continue Current Inpatient Psychotropic Regimen @ home Follow-Up with Psychiatric Provider Safety Plan Discussed DISCHARGE CONDITION: His readiness for discharge is supported by his stable mental status, adherence to treatment, and proactive approach to managing his mental health. Denies SI. Denies HI. Denies A/V/H. The patient has been informed to continue follow-up care to ensure ongoing support and monitoring. Patient discharged to home. *Problems/Diagnosis: (1) Major depressive disorder, recurrent (2) Suicidal ideation Status: Acute (3) Anxiety Total Time Spent on D/C: > 30 Minutes Counseling Services Smoking & Tobacco Cessation: N/A CODING VISIT-PSYCHIATRY Date of Service: Apr 30, 2025 Billing Provider: DAVID NGUYEN APRN Psych Common Visit Codes: [id number] DISCH DAY >30min DAVID NGUYEN APRN Apr 30, 2025 08:27
[2025-04-30] MEDS ORDERED: TEMA15CA PO (08:30)
[2025-04-30] MEDS ORDERED: ESCI-8 PO (08:30)
--- NOTE | 2025-04-30 08:38 | PROGRESS NOTE ---
Daily Progress Note Providers to CC ~ Antibiotic Timeout Antibiotic Ordered?: No Objective Vital Signs Date Time Temp Pulse Resp B/P (MAP) Pulse Ox O2 Delivery O2 Flow Rate FiO2 04/29/25 20:00 97.1 82 15 117/68 (84) 96 Room Air Result Diagram: 04/26/25 0818 Problem\Assessment\Plan SI MDD Anxiety disorder Hypothyroidism -vss, labs unremarkable, continue management under psychiatrist -Hospitalist team will continue to follow for patient's medical needs Date of Service: Apr 30, 2025 Billing Provider: JULES AMADOR MD Common Visit Codes: [id number] INP/OBS CARE(LOW) JULES AMADOR MD Apr 30, 2025 08:38
[2025-04-30] MEDS: ESCITALOPRAM 10 mg tablet 10 MG TABLET PO SCH (09:01)
[2025-05-01] MEDS ORDERED: QUET25TA PO (22:30)
[2025-05-01] MEDS ORDERED: TEMA15CA5 PO (22:30)
[2025-05-01] MEDS ORDERED: ESCI-8 PO (23:18)
== END 2025-04-30 11:13 | disposition home or self-care (01) | DRG 885 ==
LOC: ER 18:08 → ADULT MH 04-25 15:22
PROVIDERS: ADMIT Psychiatry & Neurology Psychiatry; ATTEND Psychiatry & Neurology Psychiatry
PROC: GZHZZZZ Group Psychotherapy (ICD-10-PCS; principal; 2025-04-26)
PROC: GZ51ZZZ Individual Psychotherapy, Behavioral (ICD-10-PCS; 2025-04-26)
DX: F33.9 Major depressive disorder, recurrent, unspecified (principal); R45.851 Suicidal ideations; F41.9 Anxiety disorder, unspecified; G47.00 Insomnia, unspecified; Z20.822 Contact with and (suspected) exposure to COVID-19; K21.9 Gastro-esophageal reflux disease without esophagitis; E03.9 Hypothyroidism, unspecified; F90.9 Attention-deficit hyperactivity disorder, unspecified type; Z88.2 Allergy status to sulfonamides; Z79.899 Other long term (current) drug therapy
CPT/HCPCS: 36415; 80048; 80053; 80061; 80305; 80320; 81001; 83036; 84443; 85025; 86704; 86705; 87081; 87340; 87811; 99285; A6250; Q0177

== ENCOUNTER 2025-05-01 15:09 | Inpatient (IN) | payer MEDICARE, MEDICAID ==
[~2025-05-01] VITALS: Ht 160 cm; Wt 44.4 kg
[~2025-05-01 15:09] MED LIST changes: -DULOXETINE CAP 30MG; +ESCI-8 PO; -QUET25TA36 PO; -SERT-432 PO; +TEMA15CA PO
--- NOTE | 2025-05-01 15:18 | Physician Documentation ---
History of Present Illness ~ Stated Complaint: "ADVISED TO COME BACK IN FROM " Time Seen by MD: 16:21 OK to notify your PCP?: Yes Primary Medical Doctor: VALE Source: patient Mode of Arrival: POV Exam Limitations: no limitations HPI 74-year-old female presents for thoughts of suicidal ideation. She was admitted here and in our [facility] unit and discharged yesterday and feels that she was discharged too soon. She is still experiencing depression and hopelessness. She does not have any active plan to end her life, but has thought about stabbing herself with a knife in the abdomen earlier today. She reports that she has not been sleeping well on average 2 hours per night. She used to take Prozac for many years and then restarted it without any success. Yesterday she started on Lexapro. While she was in our [facility] unit she was receiving Atarax 3 times a day and Restoril to help her sleep. A prescription for Restoril was sent to the pharmacy but she was unable to pick it up due to insurance complications. Medication Reconciliation Allergies: Coded Allergies: Sulfa (Sulfonamide Antibiotics) (Verified Allergy, Unknown, 04/17/25) Scheduled Escitalopram Oxalate (Escitalopram Oxalate), 1 TAB PO DAILY, (Reported) Gabapentin (Gabapentin), 2 CAP PO TID, (Reported) Levothyroxine Sodium (Levothyroxine Sodium), 1 TAB PO DAILY, (Reported) Pantoprazole Sodium (Pantoprazole Sodium), 1 TAB PO DAILY, (Reported) Quetiapine Fumarate (Seroquel), 1 TAB PO HS, (Reported) Scheduled PRN Temazepam (Restoril), 1 CAP PO HSPRN PRN for sleep, (Reported) Discontinued Medications Escitalopram Oxalate (Escitalopram Oxalate), 10 MG PO DAILY Discontinued Reason: Pt. Refused Quetiapine Fumarate (Quetiapine Fumarate), 1 TAB PO HS, (Reported) Sertraline HCl (Sertraline HCl), 1 TAB PO DAILY, (Reported) Discontinued Reason: Other Temazepam (Temazepam), 1 CAP PO HSPRN PRN for sleep Discontinued Reason: Other [Duloxetine Cap 30MG], (Reported) Discontinued Reason: Other Past Medical History Past Medical History: *CARDIOVASCULAR*, Thyroid (unspecified), Anxiety, Depression Past Surgical History: no surgical history Patient History: Patient reports no known family medical history. Alcohol Use: Rarely Drug Use: none Lives In: Home Occupation: employed Review of Systems All Other Systems at this time: Reviewed and Negative Physical Exam Vital Signs: RN Vital Signs have been reviewed: Yes Pulse Oximetry Reflects: adequate oxygenation Physical Exam General: Alert, no apparent distress. HEENT: PERRL, EOMI, no injection, moist mucous membranes. Neck: Full range of motion. Respiratory: Lungs clear, no respiratory distress. Chest: No accessory muscle use. Cardiovascular: Regular rate and rhythm, no murmurs. Gastrointestinal: Soft, nontender, nondistended. Bowels sounds present. Extremities: Normal range of motion, no deformity. Neurologic: Oriented x4. Psychiatric: Depressed mood and flat affect. Skin: Normal color, warm and dry. No edema, no ecchymosis. Progress Results/Orders Reviewed/noted all lab results: Yes Results/Orders Orders - TANG MA MD Chest,Single View (05/01/25 18:31) Monitor (05/01/25 18:31) Saline Lock (05/01/25 18:31) Oxygen (05/01/25 18:31) Escitalopram 10 Mg Tablet (Lexapro 10mg (05/02/25 08:00) Gabapentin Capsule (Neurontin Capsule) (05/02/25 08:00) Levothyroxine Tablet (Synthroid Tablet) (05/02/25 07:00) Pantoprazole Tablet (Protonix) (05/02/25 07:30) Quetiapine Tablet (Seroquel Tablet) (05/02/25 21:00) Temazepam Capsule (Restoril Capsule) (05/01/25 23:55) Temazepam Capsule (Restoril Capsule) (05/02/25 21:00) Completed Orders - TANG MA MD Chest,Single View (05/01/25 18:31) Electrocardiogram (05/01/25 18:31) Hs Troponin I W Calculations (05/01/25 18:31) Hs Troponin I W Calculations (05/01/25 20:31) Hs Troponin I W Calculations (05/01/25 21:31) Hydroxyzine Tablet (Atarax Tablet) (05/01/25 19:00) Temazepam Capsule (Restoril Capsule) (05/01/25 22:45) Medications Received in ER Medications (Trade) Dose Ordered Sig/Sandra Route PRN Reason Start Time Stop Time Status Last Admin Dose Admin (Restoril capsule) 15 mg ONCE ONCE PO 05/01/25 22:45 05/01/25 22:46 DC 05/01/25 23:03 15 MG Vital Signs 05/01/25 05/01/25 05/01/25 05/01/25 15:13 16:29 18:01 18:15 Temp 97.0 98.1 Pulse 76 89 69 Resp 16 14 20 B/P (MAP) 120/57 115/66 (82) 116/71 (86) Pulse Ox 97 100 100 05/01/25 05/01/25 05/01/25 05/02/25 19:56 19:59 21:34 05:40 Temp 97.3 Pulse 64 63 60 Resp 18 18 14 B/P (MAP) 118/71 (87) 104/36 (58) 92/57 (69) Pulse Ox 97 97 97 Laboratory Tests Test 05/01/25 16:47 05/01/25 16:58 05/01/25 17:00 05/01/25 20:32 Urine Specimen Description Voided Urine Color Yellow Urine Clarity Clear Urine pH 7.0 Urine Specific [place] 1.010 Urine Protein Negative Urine Glucose (UA) Negative Urine Ketones Negative Urine Occult Blood Trace-intact Urine Nitrite Negative Urine Bilirubin Negative Urine Urobilinogen 0.2 Urine Leukocyte Esterase Negative Urine RBC 0-2 Urine WBC None seen Urine Squamous Epithelial Cells Few Urine Bacteria None seen Urine Mucus None seen Volume Urine Centrifuged 10 ml Urine Comment Urine Opiates Screen Negative Urine Methadone Screen Negative Urine Fentanyl Screen Negative Urine Barbiturates Screen Negative Urine Phencyclidine Screen Negative Urine Amphetamines Screen Negative Urine Benzodiazepines Screen Negative Urine Cocaine Screen Negative Urine Cannabinoids Screen Negative Drug Screen Comment White Blood Count 8.6 Red Blood Count 4.33 Hemoglobin 13.1 Hematocrit 38.4 Mean Corpuscular Volume 88.7 Mean Corpuscular Hemoglobin 30.2 Mean Corpuscular Hemoglobin Concent 34.1 Red Cell Distribution Width 13.7 Platelet Count 296 Mean Platelet Volume 7.2 L Neutrophils (%) (Auto) 77.5 H Lymphocytes (%) (Auto) 13.4 L Monocytes (%) (Auto) 8.7 Eosinophils (%) (Auto) 0.1 Basophils (%) (Auto) 0.3 Neutrophils # (Auto) 6.6 Lymphocytes # (Auto) 1.1 Monocytes # (Auto) 0.7 Eosinophils # (Auto) 0.0 Basophils # (Auto) 0.0 CBC Comment Sodium Level 129 L Potassium Level 3.8 Chloride Level 93 L Carbon Dioxide Level 30.8 Anion Gap 5 L Blood Urea Nitrogen 20 H Creatinine 0.69 Estimated GFR/1.73 m2 83 BUN/Creatinine Ratio 29.0 H Glucose Level 105 H Calcium Level 8.9 Troponin I High Sensitivity 7 8 Pro-B-Type Natriuretic Peptide 76 Albumin 4.0 Chemistry Comments Ethyl Alcohol Level < 10 SARS-CoV-2 Antigen (Rapid) Negative Troponin I High Sens Percent Delta 14 Troponin I Hi Sens Absolute Change 1 Test 05/01/25 21:34 Troponin I High Sensitivity 8 Troponin I High Sens Percent Delta 0 Troponin I Hi Sens Absolute Change 0 Medical Decision Making Additional info obtained from: old records, family Findings 74-year-old female presents for suicidal ideation, depression and hopelessness. She was discharged recently from our [facility] unit yesterday and feels that she was discharged too soon. She has had a few medication changes from her admission and was recently placed on Lexapro prior to discharged. She reports she is unable to take care of her dog any longer and does not care to which has been alarming to family members as the dog is the light of her life. She has had thoughts of stabbing herself in the abdomen on multiple occasions including this morning. I placed her on a 1798 to wait evaluation by [facility] and order the required labs. She is medically cleared for mental health evaluation. Patient developed chest pain last night. EKG was performed showing no ischemic changes. Cardiac enzymes ordered and they were negative. Patient had a recent admission for chest pain and had a negative workup. The patient is primary problem is her not being able to sleep. Multiple medications have been tried. Patient's that have not worked include Seroquel which made her condition worse, trazodone also was not effective. Restoril 15 mg p.o. q.h.s. has been ordered and may be effective for her sleeping. Patient's Remeron has been changed to Lexapro. Differential Dx:Considerations: Include: Alcohol abuse, Conversion disorder, Schizophrenia, Substance abuse Departure Disposition: 30 STILL A PATIENT Impression: Primary Impression: Suicidal ideation Additional Impression: Depression Additional Instructions: She is medically cleared for mental health evaluation. Referrals: NO PRIMARY CARE PROVIDER (PCP) Signature Scribe Signature: . Attestation: Scribed for Kaylie Guerrier [employer] by Kaylie Jha NP . 05/01/25 17:26 Parts of this note were created using [employer] voice recognition software program. While efforts were made to correct any mistakes made by this voice recognition software program, nonsensical phrases may remain in this note. In addition, there may be errors and syntax, grammar, content and spelling. KAYLIE GUERRIER May 01, 2025 15:18 TANG MA MD May 02, 2025 05:47
[2025-05-01 17:05] LABS: MEAN PLATELET VOLUME 7.2 FL (7.4-10.4); RED CELL DISTRIBUTION WIDTH 13.7 % (11.5-14.5)
[2025-05-01 17:20] LABS: CREATININE 0.69 MG/DL (0.40-0.90); TOTAL CARBON DIOXIDE 30.8 MMOL/L (24-32); eCRCL 38 ML/MIN; eGFR 83 ML/MIN
[2025-05-01 17:24] LABS: LEUKOCYTE ESTERASE ,URINE NEGATIVE (Neg); NITRITES, URINE NEGATIVE (Neg); OCCULT BLOOD,URINE TRACE-INTACT (Neg)
[2025-05-01 17:28] LABS: UA COLLECTION TYPE VOIDED
[2025-05-01 17:29] LABS: MUCUS STRANDS NONE SEEN /LPF (Neg); SQUAMOUS EPITHELIAL CELL,UR FEW /LPF (FEW)
[2025-05-01 17:40] LABS: URINE AMPHETAMINE SCREEN NEGATIVE (Neg); URINE BARBITUATE SCREEN NEGATIVE (Neg); URINE BENZODIAZEPINES SCREEN NEGATIVE (Neg); URINE CANNABINOID SCREEN NEGATIVE (Neg); URINE COCAINE SCREEN NEGATIVE (Neg); URINE METHADONE SCREEN NEGATIVE (Neg); URINE OPIATE SCREEN NEGATIVE (Neg); URINE PHENCYCLIDINE SCREEN NEGATIVE (Neg)
[2025-05-01 17:42] LABS: ETHANOL < 10 MG/DL (<10)
--- NOTE | 2025-05-01 18:46 | ELECTROCARDIOGRAPH REPORT ---
[facility] Test Date: 2025-05-01 Test Time: 18:44:09 Pat Name: ONOFRE HORNER Department: EMERGENCY [facility]OM [id number] Gender: F Continuous Improvement Director: OSCAR : 1950 Requested By: TANG MA Order Number: [id number] Reading MD: Dr. Jaylen Choi Measurements Intervals [place] Rate: 63 P: 79 NV: 142 QRS: 73 QRSD: 73 T: 76 QT: 406 QTc: 416 Interpretive Statements Sinus rhythm Nonspecific T abnrm, anterolateral leads Electronically Signed On 05-05-2025 19:16:[address] Jaylen Choi Please click the below link to view image of tracing.
[2025-05-01 18:59] LABS: PRO BRAIN NATRIURETIC PEPTIDE 76 PG/ML (0-450)
--- NOTE | 2025-05-01 20:21 | RADIOLOGY REPORT ---
EXAMINATION: AP portable chest radiograph CLINICAL HISTORY: CP COMPARISON: DI CHEST,SINGLE VIEW on DOS: 11/19/24 FINDINGS: Lead wires overlie the thorax. Mild hyperinflation again noted. No dominant consolidations. The costophrenic angles appear clear. N o sizable pleural effusion or pneumothorax. The cardiomediastinal silhouette appears within normal li mits given technique. IMPRESSION: Mild hyperinflation which may be due to emphysematous changes. Otherwise no acute cardiopulmonary Findings as visualized.
[2025-05-01] MEDS ORDERED: TEMA15CA5 PO (22:30)
[2025-05-01] MEDS ORDERED: QUET25TA PO (22:30)
[2025-05-01] MEDS ORDERED: ESCI-8 PO (23:18)
[2025-05-02] MEDS: pantoprazole 40mg Tablet.DR PO SCH (07:11)
[2025-05-02] MEDS: ESCITALOPRAM 10 mg tablet 10 MG TABLET PO SCH (07:12)
[2025-05-02] MEDS: levoTHYROXINE 100mcg tablet PO SCH (07:12)
[2025-05-02] MEDS: OLANZAPINE 5 MG TABLET PO SCH (20:03)
[2025-05-03 12:36] VITALS: BP 127/73; PULSE 72; RESP 16; TEMP 97.3; O2SAT 99
[2025-05-03] MEDS ORDERED: PRO TOP (15:54)
[2025-05-03] MEDS ORDERED: [UNRECOGNIZED DRUG - OTHER] TOP (15:54)
[2025-05-03] MEDS ORDERED: EST TOP (15:54)
[2025-05-03 19:00] VITALS: RESP 14; O2SAT 96
[2025-05-03 20:00] VITALS: BP 102/63; PULSE 67; RESP 14; TEMP 97.4; O2SAT 99
[2025-05-04 07:00] VITALS: BP 149/69; PULSE 68; RESP 13; TEMP 97.7; O2SAT 99
[2025-05-04] MEDS ORDERED: PROGESTERONE TOP SCH (08:00)
[2025-05-04] MEDS: levoTHYROXINE 25mcg tablet PO SCH (08:00)
[2025-05-04] MEDS ORDERED: TESTOSTERONE TOP SCH (08:00)
[2025-05-04] MEDS ORDERED: ESTRADIOL TOP SCH (08:00)
[2025-05-04 09:52] VITALS: RESP 13
--- NOTE | 2025-05-04 12:19 | HISTORY AND PHYSICAL ---
History of Present Illness Primary Medical Doctor: VALE History of Present Illness Pt admitted on a 5150 Hold for DTS. per hold Pt is experiencing SI with plan to stab herself in the abdomen with a knife. Patient was discharged from this unit on 04/30/25 and came back to the ED the next day citing SI with plan Patient states she feels lost, had cut herself from people, " I made a lot of bad mistakes" lonely, have a hard time sleeping and eating properly at home. States her home is cluttered, her sister is coming From [place] in 2 weks to help organize the home. Endorse SI on and off for many years, but no attempts, denies hx or current AVH, states she feels like giving up, have SI today, would not contract for safety, deflecting when asked if she will inform her nurse if the feelings of suicide intensify during her hospital stay. Allergies: Coded Allergies: quetiapine (Verified Allergy, Intermediate, increased anxiety, 05/03/25) Sulfa (Sulfonamide Antibiotics) (Verified Allergy, Unknown, 04/17/25) Past Psychiatric History Psychiatric History Patient was discharged on the Past Medical History Past Medical History: *CARDIOVASCULAR*, Thyroid (unspecified), Anxiety, Depression Past Surgical History Past Surgical History: no surgical history Past Family History Patient History: Patient reports no known family medical history. Past Social History Alcohol Use: Rarely Drug Use: None Lives In: Home Occupation: employed Personal History Uses Alcohol: No Uses Recreational Drugs: No Heroin and/or Methadone: No Alcohol Use: No Current Living Situation: House/APT Marital Status: Single Do you Work: No Service: No Developmental Histroy Rasied in: [place] Number of siblings & ord: 2 Describe relationships within: GOOD Has patient been abused: No Mental Status Exam OBSERVATION Appearnace: Disheveled Speech: Impoverished Eye Contact: Normal Motor Activity: Normal Affect: Flat MOOD Mood: Anxious, Depressed COGNITION Orientation Impairment: Place, Object, Person Memory Impairment: None Attention: Normal PERCEPTION Hallucinations: None Other: None THOUGHTS Suicidality: Ideation Delusions: None BEHAVIOR Behavior: Cooperative INSIGHT Insight: Fair Judgment: Fair Assessment/Plan Problems/Diagnosis: (1) Major depressive disorder, recurrent (2) Suicidal ideation Additional Plan TREATMENT LEXAPRO 20 MG DAILY ZYPREXA 5 MG HS SEROQUEL 25 MG HS HYDROXYZINE 50 MG P.O. Q.6 PRN THORAZINE 50 MG P.O. Q.6 PRN BENADRYL 50 MG P.O. Q.6 PRN 5150 HOLD-DTS- Patient is unable to formulate a plan to safety due to the severity of their mental illness. We are still titrating medications to an effective dose while maintaining a therapeutic environment to prevent decompensation and readmission. Monitoring by Staff, Milieu, Group, and Individual counseling as needed -- According to the [place] Suicide Assessment the above named patient is on Q15 MINUTE CHECKS. Total time spent 120 minutes on: REVIEW OF Clinical notes [X ] RN notes [X] PCT documentation [X] SW notes Labs [ X] Medications [X] Care trends/care activity [X] Vitals [X] DISCUSSION WITH correction warden [X] Staff SW Treatment Team [X] DISCHARGE UNSURE AT THIS TIME. DISCHARGE HOME ONCE STABLE. CODING VISIT-PSYCHIATRY Date of Service: May 04, 2025 Billing Provider: SANDRA OLMSTEAD DNP Psych Common Visit Codes: [id number] INP/OBS CARE(High) Problem Qualifiers (1) Major depressive disorder, recurrent: SANDRA OLMSTEAD DNP May 04, 2025 12:18
--- NOTE | 2025-05-04 15:08 | HISTORY AND PHYSICAL-Residence ---
History & Physical Providers to CC Resident Creating Document: MARII GARCIA RES CC: ARIANNA FONSECA MD ~ History of Present Illness Primary Medical Doctor: DAYNE COLLAZO Reason for Admit\Complaint: Suicidal ideation History of Present Illness 74-year-old female with history of insomnia, anxiety/depression, palpitations secondary to anxiety, hypothyroidism, is admitted to the [facility] for suicidal ideation with plan. Was discharged from [facility] on 04/30 and came to the ED with suicidal ideations. In the ED patient had chest pain EKG done showed no acute ST-T changes. Troponins were negative. Patient had similar complaints of intermittent chest pain and recent echo done in april. She had chest pain and palpitations which are thought to be secondary to anxiety. She also stated she had lost 20-30 lb weight for the past several months. She stated that she is under a lot of stress and that she is not eating well. She denies any history of cancer. her colonoscopy done a few years ago was normal. Currently She denies chest pain, shortness of breath, palpitations Allergies: Coded Allergies: quetiapine (Verified Allergy, Intermediate, increased anxiety, 05/03/25) Sulfa (Sulfonamide Antibiotics) (Verified Allergy, Unknown, 04/17/25) Home Medications Home Medications Active [est/pro/test cream] 2 Unit TOP DAILY Alternate administration site daily (thighs) Reported Escitalopram Oxalate 10 Mg Tablet 1 Tab PO DAILY Seroquel (Quetiapine Fumarate) 25 Mg Tablet 1 Tab PO HS Pantoprazole Sodium 40 Mg Tablet.dr 1 Tab PO DAILY Levothyroxine Sodium 50 Mcg Tablet 1 Tab PO DAILY Gabapentin 100 Mg Capsule 2 Cap PO TID Past Medical History Past Medical History Hypothyroidism GERD Palpitations secondary to anxiety Anxiety/depression Insomnia Past Surgical History Surgical History Comment None Family History Family History: Patient reports no known family medical history. Past Social History Social History Comment Quit smoking 40 years ago Denies any alcohol use Denies any drug use Lives alone Alcohol Use: Rarely Drug Use: None Lives In: Home Occupation: employed ROS All Other Systems: Reviewed and Negative ROS ROS Constitutional: Positive for decreased appetite, weight loss, decreased sleep, intermittent chest pain, palpitations HEENT: No blurring of the vision, No sore throat, epistaxis, tinnitus Cardiovascular: No syncope. No pedal edema Respiratory: No sob, cough,, hemoptysis Gastrointestinal: No abdominal pain, nausea, vomiting. No diarrhea, constipation, melena. Genitourinary: No frquency, urgency, incontinence, nocturia. No dysuria, hematuria Musculoskeletal: No arthralgia, myalgia Endocrine: No fatigue, polydipsia, polyuria. No heat or cold intolerance Neurologic: No headache, vertigo. No weakness, numbness or tingling of extremities Hematologic: No bleeding or bruises Reviewed in full. All negative except for pertinent positives in HPI Exam Vitals: Vital Signs Date Time Temp Pulse Resp B/P (MAP) Pulse Ox O2 Delivery O2 Flow Rate FiO2 05/04/25 09:52 13 Room Air 0.0 05/04/25 07:00 97.7 68 149/69 (95) 99 General: General: Elderly female, thin, severely malnourished, with temporal hollowing and buccal fat hollowing, not in apparent distress Head: Normocephalic with an atraumatic Eyes: Pupils- 3mm, reacting to light, conjunctiva- anicteric Nose and throat: No polyps, septum- normal, no mucosal ulcers Neck: Supple, no lymphadenopathy, no carotid bruit Respiratory: No use of accessory muscles of respiration, Bilateral normal breath sounds heard. No wheeze, rhochi or creps Cardiac: S1-S2 heard, rythm regular, no gallop/murmur Abdomen: non distended, no tenderness, no organomegaly, bowel sounds- heard Extremities: no clubbing, no pedal edema, no deformities, peripheral pulses- 2+ Skin: warm and dry, no rash, no purpura Neuro: No focal deficit, gross cranial nerve exam- normal Diagnostic Data Last Recorded Lab Results: 05/01/25 1658 05/03/25 1142 Additional Plan 74-year-old female with history of insomnia, anxiety/depression, palpitations secondary to anxiety, hypothyroidism, is admitted to the [facility] for suicidal ideation with plan. Insomnia Anxiety/depression Suicidal ideation with plan -continue Lexapro, quetiapine, hydroxyzine, Zyprexa, gabapentin -management for Psychiatry Hypothyroidism -TSH 2.0 -continue levothyroxine 50 mcg once daily Significant weight loss Severe protein calorie malnutrition -patient states she is not eating well past few months due to anxiety -she might need appetite stimulating medication -ensure enlive t.i.d. Chest pain-resolved -recent echo done showed ejection fraction of 70%, with RVSP of 35, mild TR -troponins negative -chest pain is thought to be 2/2 anxiety Mild hyponatremia -sodium 133 -repeat BMP in 2-3 days All labs and vitals reviewed. Hospitalist service will continue to follow the patient Date of Service: May 04, 2025 Billing Provider: ARIANNA FONSECA MD Common Visit Codes: [id number] INP/OBS CARE (HIGH) MARII GARCIA, RES May 04, 2025 15:08 ARIANNA FONSECA MD May 17, 2025 15:30
[2025-05-04] MEDS: lactose-reduced food (Ensure Enlive) - 237ml bottle PO SCH ×2 (18:00→20:00)
[2025-05-04 19:00] VITALS: RESP 18; O2SAT 97
[2025-05-04 20:00] VITALS: BP 128/70; PULSE 69; RESP 18; TEMP 97.8; O2SAT 97
[2025-05-04] MEDS: ESTRADIOL TOP SCH (20:13)
[2025-05-04] MEDS: PROGESTERONE TOP SCH (20:13)
[2025-05-04] MEDS: TESTOSTERONE TOP SCH (20:13)
[2025-05-05 07:00] VITALS: RESP 14; O2SAT 97
[2025-05-05] MEDS: ESCITALOPRAM 10 mg tablet 10 MG TABLET PO SCH (07:14)
[2025-05-05 08:00] VITALS: BP 151/92; PULSE 85; RESP 14; TEMP 97.2; O2SAT 97
[2025-05-05 19:00] VITALS: RESP 18; O2SAT 97
--- NOTE | 2025-05-05 19:20 | PROGRESS NOTE ---
Progress Note Dictate Providers to CC ~ Antibiotic Ordered?: No Objective Vitals Vital Signs Date Time Temp Pulse Resp B/P (MAP) Pulse Ox O2 Delivery O2 Flow Rate FiO2 05/05/25 08:00 97.2 85 14 151/92 (111) 97 Room Air 05/04/25 09:52 0.0 Lab Results: 05/01/25 1658 05/03/25 1142 Problem\\Assessment\\Plan Problems/Diagnosis: (1) Major depressive disorder, recurrent (2) Suicidal ideation Psychiatrist's Progress Note Date of Service: May 05, 2025 Notes History of Present Illness Pt admitted on a 5150 Hold for DTS. per hold Pt is experiencing SI with plan to stab herself in the abdomen with a knife. Patient was discharged from this unit on 04/30/25 and came back to the ED the next day citing SI with plan Patient states she feels lost, had cut herself from people, " I made a lot of bad mistakes" lonely, have a hard time sleeping and eating properly at home. States her home is cluttered, her sister is coming From [place] in 2 weSolstice to help organize the home. Endorse SI on and off for many years, but no attempts, denies hx or current AVH, states she feels like giving up, have SI today, would not contract for safety, deflecting when asked if she will inform her nurse if the feelings of suicide intensify during her hospital stay. Asessment: Patient assessed in the conference room, alert x 3, denies SI/JI/AVH,c/o that she may have a reaction to one of her medications, feels like it is affecting her memory,feels stuck in her brain, have chills and weakness, upon further evaluation, she states that she has these symptoms for years even before prior hospitalizations, feels she is on a lot of medication and would like to stop a few. Discussed risk of stopping meds especially when just only 2 days ago had endorsed SI. Seems ok for now. Will continue daily assessments and adjust tx as needed to stabilize patient. Mental Status Exam Appearnace: Wearing scrubs Speech: Normal rate/tone Eye Contact: Normal Motor Activity: Normal Affect: congruent Mood: Anxious, Orientation Impairment: Place, Object, Person Memory Impairment: None Attention: Normal Hallucinations: None Other: None Suicidality: denies Delusions: None Behavior: Cooperative Insight: Fair Judgment: Fair TREATMENT LEXAPRO 20 MG DAILY ZYPREXA 5 MG HS GABAPENTIN 200 MG TID TRAZODONE 50 MG HS HYDROXYZINE 50 MG P.O. Q.6 PRN THORAZINE 50 MG P.O. Q.6 PRN BENADRYL 50 MG P.O. Q.6 PRN 5150 HOLD-DTS- Patient is unable to formulate a plan to safety due to the severity of their mental illness. We are still titrating medications to an effective dose while maintaining a therapeutic environment to prevent decompensation and readmission. Monitoring by Staff, Milieu, Group, and Individual counseling as needed -- According to the [place] Suicide Assessment the above named patient is on Q15 MINUTE CHECKS. Total time spent 60 minutes on: REVIEW OF Clinical notes [X ] RN notes [X] PCT documentation [X] SW notes Labs [ X] Medications [X] Care trends/care activity [X] Vitals [X] DISCUSSION WITH radiation oncology manager [X] Staff SW Treatment Team [X] DISCHARGE UNSURE AT THIS TIME. DISCHARGE HOME ONCE STABLE. CODING VISIT-PSYCHIATRY Date of Service: May 05, 2025 Billing Provider: SANDRA OLMSTEAD DNP Psych Common Visit Codes: [id number] INP/OBS CARE(Mod) Problem Qualifiers (1) Major depressive disorder, recurrent: SANDRA OLMSTEAD DNP May 05, 2025 19:20
[2025-05-05 20:00] VITALS: BP 134/64; PULSE 85; RESP 18; TEMP 96.1; O2SAT 97
[2025-05-06 07:00] VITALS: BP 143/69; PULSE 71; RESP 16; TEMP 97.5; O2SAT 99
[2025-05-06 11:04] LABS: CREATININE 0.65 MG/DL (0.40-0.90); TOTAL CARBON DIOXIDE 30.1 MMOL/L (24-32); eCRCL 48 ML/MIN; eGFR 89 ML/MIN
--- NOTE | 2025-05-06 17:49 | PROGRESS NOTE- Residence ---
Progress Note - Resident Providers to CC Resident Creating Document: BLANCA PAYNE RES ~ Antibiotic Timeout Antibiotic Ordered?: No Subjective Patient seen and examined at the bedside. She complains of anxiety but no more chest pain or shortness of breath. The patient states feeling minimal dysuria today, but no fever, hematuria or abdominal pain. Objective Vital Signs Date Time Temp Pulse Resp B/P (MAP) Pulse Ox O2 Delivery O2 Flow Rate FiO2 05/06/25 07:00 16 99 Room Air 05/06/25 07:00 97.5 71 143/69 (93) 05/04/25 09:52 0.0 Result Diagram: 05/06/25 1023 General: Awake and Alert, no acute distress. HEENT: Conjunctiva pink, Sclera clear, Mucus Membranes moist. Neck: Supple without masses and tenderness. Resp: Unlabored. Lungs clear to auscultation bilaterally. Heart: Regular Rate and rhythm, normal S1 and S2 without murmur, rub or gallop. Abdomen: Soft and non tender no organomegaly Extremities: No cyanosis,clubbing or edema. Skin: Warm and Dry. Assessment Assessment 74-year-old female with history of insomnia, anxiety/depression, palpitations secondary to anxiety, hypothyroidism, is admitted to the [facility] for suicidal ideation with plan. Plan Plan Insomnia Anxiety/depression Suicidal ideation with plan -continue Lexapro, quetiapine, hydroxyzine, Zyprexa, gabapentin -management for Psychiatry Hypothyroidism -TSH 2.0 -continue levothyroxine 50 mcg once daily Significant weight loss Severe protein calorie malnutrition -patient states she is not eating well past few months due to anxiety -she might need appetite stimulating medication -ensure enlive t.i.d. Chest pain-resolved -recent echo done showed ejection fraction of 70%, with RVSP of 35, mild TR -troponins negative -chest pain is thought to be 2/2 anxiety Mild hyponatremia - resolved -sodium 133 -repeat BMP in 2-3 days 05/06/2025: Sodium 136 Dysuria - possible cystitis Ordered urinalysis today Hospitalist service will continue to follow the patient Date of Service: May 06, 2025 Billing Provider: SNEHAL STRICKLAND MD, LUCAS, RES May 06, 2025 17:49
[2025-05-06 19:03] VITALS: RESP 18
[2025-05-06 19:47] VITALS: BP 90/52; PULSE 82; RESP 17; TEMP 98; O2SAT 97
--- NOTE | 2025-05-07 00:32 | PROGRESS NOTE ---
Progress Note Dictate Providers to CC ~ Antibiotic Ordered?: No Objective Vitals Vital Signs Date Time Temp Pulse Resp B/P (MAP) Pulse Ox O2 Delivery O2 Flow Rate FiO2 05/06/25 19:47 98.0 82 17 90/52 (65) 97 Room Air 05/04/25 09:52 0.0 Lab Results: 05/06/25 1023 Problem\\Assessment\\Plan Problems/Diagnosis: (1) Major depressive disorder, recurrent (2) Suicidal ideation Psychiatrist's Progress Note Date of Service: May 06, 2025 Notes History of Present Illness Pt admitted on a 5150 Hold for DTS. per hold Pt is experiencing SI with plan to stab herself in the abdomen with a knife. Patient was discharged from this unit on 04/30/25 and came back to the ED the next day citing SI with plan Patient states she feels lost, had cut herself from people, " I made a lot of bad mistakes" lonely, have a hard time sleeping and eating properly at home. States her home is cluttered, her sister is coming From [place] in 2 weZutux to help organize the home. Endorse SI on and off for many years, but no attempts, denies hx or current AVH, states she feels like giving up, have SI today, would not contract for safety, deflecting when asked if she will inform her nurse if the feelings of suicide intensify during her hospital stay. Assessment: Patient assessed in the room, states she is anxious, had refused to take zyprexa last night but when checked, it showed as administered, states she does not want to take the medication, seems to have thought blocking, hesitating a lot when talking during the evaluation, but denies SI/HI/AVH, wants to be discharged because her sister will be coming to visit her in a few weeks. Per chart note, patient does not engage much with other peers, at this time, patient is hesitant to try or increase her medication, in fact want to stop her meds. Will continue to encourage treatment. Maybe increase Zyprexa dose tomorrow? encouraged to take prn medication for anxiety. Will continue to assess daily.Premature discharge will most likely result in readmission. Mental Status Exam Appearnace: Wearing scrubs Speech: low , heistant Eye Contact: Normal Motor Activity: Normal Affect: congruent Mood: Sad Orientation Impairment: Place, Object, Person Memory Impairment: None Attention: Normal Hallucinations: None Other: None Suicidality: denies Delusions: Denies Behavior: Cooperative Insight: Fair Judgment: Fair TREATMENT LEXAPRO 20 MG DAILY ZYPREXA 5 MG HS GABAPENTIN 200 MG TID TRAZODONE 50 MG HS HYDROXYZINE 50 MG P.O. Q.6 PRN THORAZINE 50 MG P.O. Q.6 PRN BENADRYL 50 MG P.O. Q.6 PRN 5250 HOLD-DTS- Patient is unable to formulate a plan to safety due to the severity of their mental illness. We are still titrating medications to an effective dose while maintaining a therapeutic environment to prevent decompensation and readmission. Monitoring by Staff, Milieu, Group, and Individual counseling as needed -- According to the [place] Suicide Assessment the above named patient is on Q15 MINUTE CHECKS. Total time spent 55 minutes on: REVIEW OF Clinical notes [X ] RN notes [X] PCT documentation [X] SW notes Labs [ X] Medications [X] Care trends/care activity [X] Vitals [X] DISCUSSION WITH domestic laundry worker [X] Staff SW Treatment Team [X] DISCHARGE UNSURE AT THIS TIME. DISCHARGE HOME ONCE STABLE. CODING VISIT-PSYCHIATRY Date of Service: May 06, 2025 Billing Provider: SANDRA OLMSTEAD DNP Psych Common Visit Codes: [id number] INP/OBS CARE(Mod) Problem Qualifiers (1) Major depressive disorder, recurrent: SANDRA OLMSTEAD DNP May 07, 2025 00:32
[2025-05-07 07:00] VITALS: BP 129/76; PULSE 89; RESP 16; TEMP 97.9; O2SAT 99
[2025-05-07 19:00] VITALS: RESP 20; O2SAT 99
[2025-05-07 20:00] VITALS: BP 126/60; PULSE 80; RESP 18; TEMP 97.9; O2SAT 97
--- NOTE | 2025-05-07 22:37 | PROGRESS NOTE ---
Progress Note Dictate Providers to CC ~ Antibiotic Ordered?: No Objective Vitals Vital Signs Date Time Temp Pulse Resp B/P (MAP) Pulse Ox O2 Delivery O2 Flow Rate FiO2 05/07/25 07:00 97.9 89 16 129/76 (93) 99 Room Air 05/04/25 09:52 0.0 Lab Results: 05/06/25 1023 Problem\\Assessment\\Plan Problems/Diagnosis: (1) Major depressive disorder, recurrent (2) Suicidal ideation Psychiatrist's Progress Note Date of Service: May 07, 2025 Notes History of Present Illness Pt admitted on a 5150 Hold for DTS. per hold Pt is experiencing SI with plan to stab herself in the abdomen with a knife. Patient was discharged from this unit on 04/30/25 and came back to the ED the next day citing SI with plan Patient states she feels lost, had cut herself from people, " I made a lot of bad mistakes" lonely, have a hard time sleeping and eating properly at home. States her home is cluttered, her sister is coming From [place] in 2 weks to help organize the home. Endorse SI on and off for many years, but no attempts, denies hx or current AVH, states she feels like giving up, have SI today, would not contract for safety, deflecting when asked if she will inform her nurse if the feelings of suicide intensify during her hospital stay. Assessment: Patient assessed in the room, In no acute distress, does not understand why she is still here, " I am ready to leave" when reminded that she returned to the hospital very soon after being discharged, she said she felt lonely being by herself but was not really suicidal. patient seems to be minimizing symptoms for fear that medication makes her worse, discussed switching from Zyprexa to latuda because she has complain that her medication is causing her to be confused, she would like to sleep on it and discuss it more tomorrow. Per chart note, patient mostly stays by herself, compliant with tx, no behavioral or safety concerns reported. Will continue daily assessments and adjust tx as needed to stabilize further Mental Status Exam Appearnace: Wearing scrubs Speech: slow.low Eye Contact: Normal Motor Activity: Normal Affect: congruent Mood: anxious Orientation Impairment: Place, Object, Person Memory Impairment: None Attention: Normal Hallucinations: None Other: None Suicidality: denies Delusions: Denies Behavior: Cooperative Insight: Fair Judgment: Fair TREATMENT LEXAPRO 20 MG DAILY ZYPREXA 5 MG HS GABAPENTIN 200 MG TID TRAZODONE 50 MG HS HYDROXYZINE 50 MG P.O. Q.6 PRN THORAZINE 50 MG P.O. Q.6 PRN BENADRYL 50 MG P.O. Q.6 PRN 5250 HOLD-DTS- Patient is unable to formulate a plan to safety. We are still titrating medications to an effective dose while maintaining a therapeutic environment to prevent decompensation and readmission. Monitoring by Staff, Milieu, Group, and Individual counseling as needed -- According to the [place] Suicide Assessment the above named patient is on Q15 MINUTE CHECKS. Total time spent 35 minutes on: REVIEW OF Clinical notes [X ] RN notes [X] PCT documentation [X] SW notes Labs [ X] Medications [X] Care trends/care activity [X] Vitals [X] DISCUSSION WITH manager fitness [X] Staff SW Treatment Team [X] DISCHARGE UNSURE AT THIS TIME. DISCHARGE HOME ONCE STABLE. CODING VISIT-PSYCHIATRY Date of Service: May 07, 2025 Billing Provider: SANDRA OLMSTEAD DNP Psych Common Visit Codes: [id number] INP/OBS CARE(Mod) Problem Qualifiers (1) Major depressive disorder, recurrent: SANDRA OLMSTEAD DNP May 07, 2025 22:37
[2025-05-08 08:00] VITALS: BP 130/70; PULSE 82; RESP 16; TEMP 97.5; O2SAT 96
--- NOTE | 2025-05-08 15:04 | PROGRESS NOTE ---
Progress Note Dictate Providers to CC ~ Central Line/PICC still needed: N\A Antibiotic Ordered?: No Objective Vitals Vital Signs Date Time Temp Pulse Resp B/P (MAP) Pulse Ox O2 Delivery O2 Flow Rate FiO2 05/08/25 08:00 97.5 82 16 130/70 (90) 96 Room Air 05/04/25 09:52 0.0 Lab Results: 05/06/25 1023 Problem\Assessment\Plan Problems/Diagnosis: (1) Major depressive disorder, recurrent (2) Mood disorder (3) Suicidal ideation Psychiatrist's Progress Note Date of Service: May 08, 2025 Notes Ms Jhony Hi is a 74-year-old female presents for thoughts of suicidal ideation. She was admitted here and in our [facility] unit and discharged yesterday and feels that she was discharged too soon. She is still experiencing depression and hopelessness. She does not have any active plan to end her life, but has thought about stabbing herself with a knife in the abdomen earlier today. She reports that she has not been sleeping well on average 2 hours per night. She used to take Prozac for many years and then restarted it without any success. Yesterday she started on Lexapro. While she was in our [facility] unit she was receiving Atarax 3 times a day and Restoril to help her sleep. A prescription for Restoril was sent to the pharmacy but she was unable to pick it up due to insurance complications. She has dyed red hair. glasses. short and thin. Memory. exhausted. All started not sleeping and eating. 'mountain of stress.' 'everything.' talking fast and not always making sense. Feeling depressed and sad. 'I need to be giving myself to other people... not focusing on me.' Anxiety. 'total anxiety.' She started quoting scriptures. 'I have a purpose to be the hands and feet of Bennie.' Disorganized. rapid, pressured speech. Struggling to be able to make sense. Have been having SI. 'the reason I came in here.' 'when I feel like I'm overwhelmed with stuff think about just taking a knife and stabbing herself repeatedly in the chest.' 'Too focused on that I have depression.' Got off lexapro and got on zoloft 125mg. Back and forth and all over the place. 'nothing seems to satisfy me.' Was having such trouble sleeping and at one point recently was up for over a day and a half without sleeping. Making a lot of impulsive bad decisions. Sleep not well here. Only slept 5hr last night. Mental Status Eye contact: Fair; Behavior: Cooperative. Speech: Rapid, pressured, disorganized. Flight of ideas. Mood: Depressed/anxious Affect: Constricted. Labile. Thought process: Mild disorganization, Circumstantial/Tangential at times Denies Paranoid Delusions. Thought Content: immediate needs/medications. Cognition: A&O X4; Insight: Poor; Judgment: Fair; SI Passive/HI Denies, AH Denies/VH Denies Results Of any Diagn. Testing Labs reviewed Hyponatremia resolved. Malnutrition Low Albumin. Treatment I believe patient to be bipolar. She seems hypomanic. and likely comorbid ADHD. She needs a mood stabilizer and we will decrease the antidepressant a little because I think it's making her a bit more manic like. We will monitor and change medications as needed. She is definitely not ready to return home as of yet. She is still suicidal. Decrease Lexapro 15mg daily ADD [place] 150mg hs. Monitoring by Staff, Milieu, Group, and Individual counseling as needed -- According to the [place] Suicide Assessment the above named patient is on Q 15 MINUTE CHECKS. DTS-- The patient does not have a good safety plan for discharge at this time. We are still titrating medications to an effective dose while maintaining a therapeutic environment to prevent decompensation and readmission. DISCHARGE UNSURE AT THIS TIME. DISCHARGE HOME ONCE STABLE. REVIEW OF Clinical notes [X ] RN notes [X] PCT documentation [X] SW notes [X] Labs [ X] Medications [X] Care trends/care activity [X] Vitals [X] DISCUSSION WITH scientific helper [X] CODING VISIT-PSYCHIATRY Date of Service: May 08, 2025 Billing Provider: MICHAEL ZHOU Psych Common Visit Codes: [id number] INP/OBS CARE(High) Problem Qualifiers (1) Major depressive disorder, recurrent: MICHAEL ZHOU May 08, 2025 15:04
[2025-05-08 19:00] VITALS: RESP 18; O2SAT 97
[2025-05-08 20:00] VITALS: BP 122/50; PULSE 77; RESP 18; TEMP 97.5; O2SAT 96
--- NOTE | 2025-05-08 20:00 | PROGRESS NOTE- Residence ---
Progress Note - Resident Providers to CC Resident Creating Document: BRANDON SHAH RES ~ Antibiotic Timeout Antibiotic Ordered?: No Subjective Patient seen at [facility] unit. The patient states feeling minimal dysuria today, but no fever, hematuria or abdominal pain. Objective Vital Signs Date Time Temp Pulse Resp B/P (MAP) Pulse Ox O2 Delivery O2 Flow Rate FiO2 05/08/25 08:00 97.5 82 16 130/70 (90) 96 Room Air 05/04/25 09:52 0.0 Result Diagram: 05/06/25 1023 General: Awake and Alert, no acute distress. HEENT: Conjunctiva pink, Sclera clear, Mucus Membranes moist. Neck: Supple without masses and tenderness. Resp: Unlabored. Lungs clear to auscultation bilaterally. Heart: Regular Rate and rhythm, normal S1 and S2 without murmur, rub or gallop. Abdomen: Soft and non tender no organomegaly Extremities: No cyanosis,clubbing or edema. Skin: Warm and Dry. Assessment Assessment 74-year-old female with history of insomnia, anxiety/depression, palpitations secondary to anxiety, hypothyroidism, is admitted to the [facility] for suicidal ideation with plan. Patient seen at [facility] unit. The patient states feeling minimal dysuria today, but no fever, hematuria or abdominal pain. Plan Plan Insomnia Anxiety/depression Suicidal ideation with plan -continue Lexapro, quetiapine, hydroxyzine, Zyprexa, gabapentin -management for Psychiatry Hypothyroidism -TSH 2.0 -continue levothyroxine 50 mcg once daily Significant weight loss Severe protein calorie malnutrition -patient states she is not eating well past few months due to anxiety -she might need appetite stimulating medication -ensure enlive t.i.d. Chest pain-resolved -recent echo done showed ejection fraction of 70%, with RVSP of 35, mild TR -troponins negative -chest pain is thought to be 2/2 anxiety -Patient say no chest pain today. Mild hyponatremia - resolved -sodium 133 -repeat BMP in 2-3 days 05/06/2025: Sodium 136 Dysuria - possible cystitis Urinalysis which is negative. Hospitalist service will continue to follow the patient Date of Service: May 08, 2025 Billing Provider: SNEHAL STRICKLAND MD Common Visit Codes: [id number] INP/OBS CARE(MOD) BRANDON SHAH RES May 08, 2025 20:00 SNEHAL STRICKLAND MD May 08, 2025 20:25
[2025-05-09 07:00] VITALS: RESP 14; O2SAT 100
[2025-05-09] MEDS: ESCITALOPRAM 10 mg tablet 10 MG TABLET PO SCH (07:33)
[2025-05-09 08:00] VITALS: BP 122/72; PULSE 72; RESP 14; TEMP 97.6; O2SAT 100
--- NOTE | 2025-05-09 12:14 | PROGRESS NOTE ---
Progress Note Dictate Providers to CC ~ Central Line/PICC still needed: N\\A Antibiotic Ordered?: No Objective Vitals Vital Signs Date Time Temp Pulse Resp B/P (MAP) Pulse Ox O2 Delivery O2 Flow Rate FiO2 05/09/25 08:00 97.6 72 14 122/72 (89) 100 Room Air Lab Results: 05/06/25 1023 Problem\\Assessment\\Plan Problems/Diagnosis: (1) Major depressive disorder, recurrent (2) Mood disorder (3) Suicidal ideation Psychiatrist's Progress Note Date of Service: May 09, 2025 Notes Ms Jhony Hi is a 74-year-old female presents for thoughts of suicidal ideation. She was admitted here and in our [facility] unit and discharged yesterday and feels that she was discharged too soon. She is still experiencing depression and hopelessness. She does not have any active plan to end her life, but has thought about stabbing herself with a knife in the abdomen earlier today. She reports that she has not been sleeping well on average 2 hours per night. She used to take Prozac for many years and then restarted it without any success. Yesterday she started on Lexapro. While she was in our [facility] unit she was receiving Atarax 3 times a day and Restoril to help her sleep. A prescription for Restoril was sent to the pharmacy but she was unable to pick it up due to insurance complications. Patient is a short petite underweight elderly lady. She has short dyed red hair. Wears glasses. She is wearing a sweater with green scrub bottoms. She feels some things we call mental illness are really sinful behavior. Need to do what the Bible says to do. 'I want to take responsibility' Still rapid speech, hyperverbal and pressured. She feels if she had done things that the Lord was telling her to do would be in a better position and so others don't have to suffer from her choices. She feels that the meds are causing problems with her memory. "should not got into these heavy duty drugs,' 'I totally feel like a zombie, catatonic.' 'I can't even think of the fucking word.' She says she 'my bones, every time I move my neck I crunch.' She started to get anxious. 'an effort to communicate,' 'I feel like my life is over.' Still depressed. 'because I alienated people.' She has a hard time responding to the question if she is suicidal. She gets agitated. 'you can help by turning back the clock.' "If I say yes, what will that mean for me?' She slept last night and got up feeling 'absolutely horrible.' She is wringing her hands. Standing rather than sitting. 'I shouldn't have said anything to you when I came in here.' 'I don't feel this is a safe place.' 'I think there are people who have heard what I've said and are in different camps...' 'I've been needy,' Ruminating a lot. Sister is coming out and if she doesn't think of something she will end up on the street. 'I wish I'd kept my mouth shut.' Mental Status Eye contact: Fair; Behavior: Cooperative. Speech: Not so Rapid, pressured, still a bit disorganized. No Flight of ideas. Mood: Depressed/anxious Affect: Constricted. Not so Labile today. Thought process: Mild disorganization, Circumstantial/Tangential at times POS Paranoid Does not express Delusions. Thought Content: immediate needs/medications. Cognition: A&O X4; Insight: Poor; Judgment: Poor; SI Passive/HI Denies, AH Denies/VH Denies Results Of any Diagn. Testing Labs reviewed Hyponatremia resolved. Malnutrition Low Albumin. Treatment Leave meds the same for now. She is now vacillating about even being on meds. I believe she is minimizing her symptoms and is still suicidal. She is too vague and would not give a straight answer... she is ruminating on past situations and failures. She needs some outpatient counseling. Lexapro 15mg daily [place] 150mg hs. Zyprexa 5mg hs. Monitoring by Staff, Milieu, Group, and Individual counseling as needed -- According to the [place] Suicide Assessment the above named patient is on Q 15 MINUTE CHECKS. DTS-- The patient does not have a good safety plan for discharge at this time. We are still titrating medications to an effective dose while maintaining a therapeutic environment to prevent decompensation and readmission. DISCHARGE UNSURE AT THIS TIME. DISCHARGE HOME ONCE STABLE. REVIEW OF Clinical notes [X ] RN notes [X] PCT documentation [X] SW notes [X] Labs [ X] Medications [X] Care trends/care activity [X] Vitals [X] DISCUSSION WITH band and cuff cutter [X] CODING VISIT-PSYCHIATRY Date of Service: May 09, 2025 Billing Provider: MICHAEL ZHOU Psych Common Visit Codes: [id number] INP/OBS CARE(High) Problem Qualifiers (1) Major depressive disorder, recurrent: MICHAEL ZHOU May 09, 2025 12:14
[2025-05-09 13:37] LABS: LEUKOCYTE ESTERASE ,URINE NEGATIVE (Neg); NITRITES, URINE NEGATIVE (Neg); OCCULT BLOOD,URINE TRACE-INTACT (Neg)
[2025-05-09 13:46] LABS: MUCUS STRANDS NONE SEEN /LPF (Neg); SQUAMOUS EPITHELIAL CELL,UR FEW /LPF (FEW); UA COLLECTION TYPE NON-SPECIFIED
[2025-05-09 19:00] VITALS: RESP 16; O2SAT 97
[2025-05-09 20:00] VITALS: BP 110/65; PULSE 82; RESP 16; TEMP 97.7; O2SAT 97
[2025-05-10 07:00] VITALS: RESP 16; O2SAT 99
[2025-05-10 08:00] VITALS: BP 118/80; PULSE 77; RESP 16; TEMP 97.8; O2SAT 99
--- NOTE | 2025-05-10 17:53 | PROGRESS NOTE- Residence ---
Progress Note - Resident Providers to CC Resident Creating Document: EFE GALLO, RES ~ Antibiotic Timeout Antibiotic Ordered?: No Subjective The patient has been evaluated in mental health unit. The patient currently denies any medical complaints. Objective Vital Signs Date Time Temp Pulse Resp B/P (MAP) Pulse Ox O2 Delivery O2 Flow Rate FiO2 05/10/25 08:00 97.8 77 16 118/80 (93) 99 Room Air 05/10/25 07:00 0.0 Physical exam: General: Well alert, well oriented, not confused, not agitated, not in acute distress, well cooperated during the physical. HEENT: Conjunctive are pink, sclerae clear, no icterus, pupil is equal in both sides, reactive to light, no ear discharge, no pharyngeal erythema or an edema. Neck: Supple, no JVD, no lymphadenopathy and thyromegaly. Chest: Equal air entry on both lungs, no additional sounds no rhonchi no wheezing at the moment. Cardiovascular: S1-S2 regular sinus rhythm and, regular rate, no gallops, no rubs, no murmurs Abdomen: No visible peristalsis, Bowel sounds present on auscultation, soft, nontender, no guarding, no rigidity Extremities: No obvious deformities, no pitting edema bilaterally, capillary refill intact, peripheral pulsations are intact on both sides Central Nervous System: No focal neurological deficits, no motor or sensory weakness in all 4 extremities, could move all 4 extremities, 2+ deep tendon reflexes, negative Babinski. Musculoskeletal: No joint swelling, deformities, inflammations, and no scoliosis and back tenderness Skin: Warm and dry. Result Diagram: 05/06/25 1023 Assessment Assessment 74-year-old female with history of insomnia, anxiety/depression, palpitations secondary to anxiety, hypothyroidism, is admitted to the [facility] for suicidal ideation with plan. Patient seen at [facility] unit. The patient states feeling minimal dysuria today, but no fever, hematuria or abdominal pain. Plan Plan Insomnia Anxiety/depression Suicidal ideation with plan -continue escitalopram, lithium, trazodone, olanzapine, hydroxyzine, gabapentin. -management for Psychiatry Hypothyroidism -TSH 2.0 -continue levothyroxine 50 mcg once daily Significant weight loss Severe protein calorie malnutrition -patient states she is not eating well past few months due to anxiety -she might need appetite stimulating medication -ensure enlive t.i.d. Chest pain-resolved -recent echo done showed ejection fraction of 70%, with RVSP of 35, mild TR -troponins negative -chest pain is thought to be 2/2 anxiety -Patient denies chest pain today. Mild hyponatremia - resolved -sodium 133 -repeat BMP in 2-3 days 05/06/2025: Sodium 136 Dysuria - possible cystitis Urinalysis which is negative. Disposition: Hospitalist team will continue to monitor the patient. Efe Nagy Internal Medicine Resident [facility] Date of Service: May 10, 2025 Billing Provider: SNEHAL STRICKLAND MD Common Visit Codes: [id number] INP/OBS CARE(MOD) EFE GALLO, RES May 10, 2025 17:53 SNEHAL STRICKLAND MD May 10, 2025 21:01
[2025-05-10 20:00] VITALS: BP 131/73; PULSE 78; RESP 16; TEMP 98; O2SAT 97
--- NOTE | 2025-05-10 20:57 | PROGRESS NOTE ---
Progress Note Dictate Providers to CC ~ Antibiotic Ordered?: No Objective Vitals Vital Signs Date Time Temp Pulse Resp B/P (MAP) Pulse Ox O2 Delivery O2 Flow Rate FiO2 05/10/25 19:00 Room Air 05/10/25 08:00 97.8 77 16 118/80 (93) 99 05/10/25 07:00 0.0 Lab Results: 05/06/25 1023 Problem\\Assessment\\Plan Problems/Diagnosis: (1) Major depressive disorder, recurrent (2) Suicidal ideation Psychiatrist's Progress Note Date of Service: May 10, 2025 Notes History of Present Illness Pt admitted on a 5150 Hold for DTS. per hold Pt is experiencing SI with plan to stab herself in the abdomen with a knife. Patient was discharged from this unit on 04/30/25 and came back to the ED the next day citing SI with plan Patient states she feels lost, had cut herself from people, " I made a lot of bad mistakes" lonely, have a hard time sleeping and eating properly at home. States her home is cluttered, her sister is coming From [place] in 2 weUsingMiles to help organize the home. Endorse SI on and off for many years, but no attempts, denies hx or current AVH, states she feels like giving up, have SI today, would not contract for safety, deflecting when asked if she will inform her nurse if the feelings of suicide intensify during her hospital stay. Assessment: Patient assessed in the room, seems confused, MOCA ordered, does not want to take lithium that was started over the weekend or any meds, states it is making her worse " not everything is solved by meds" states she felt overwhelmed at home, had so much to do " bills had pilled up" and that is why she came back, denies SI/HI/AVH, her sister have offered to take over bill payments. Patient compliant with tx even though she always c/o about meds. no behavioral or safety concerns reported. Will continue daily assessments and adjust tx as needed to stabilize further Mental Status Exam Appearnace: Wearing scrubs Speech: slow.low Eye Contact: Normal Motor Activity: Normal Affect: congruent Mood: anxious Orientation Impairment: Place, Object, Person Memory Impairment: None Attention: Normal Hallucinations: None Other: None Suicidality: denies Delusions: Denies Behavior: Cooperative Insight: Fair Judgment: Fair TREATMENT [place] 300 mg hs LEXAPRO 20 MG DAILY ZYPREXA 5 MG HS GABAPENTIN 200 MG TID TRAZODONE 50 MG HS HYDROXYZINE 50 MG P.O. Q.6 PRN THORAZINE 50 MG P.O. Q.6 PRN BENADRYL 50 MG P.O. Q.6 PRN 5250 HOLD-DTS- Patient is unable to formulate a plan to safety. We are still titrating medications to an effective dose while maintaining a therapeutic environment to prevent decompensation and readmission. Monitoring by Staff, Milieu, Group, and Individual counseling as needed -- According to the [place] Suicide Assessment the above named patient is on Q15 MINUTE CHECKS. Total time spent 35 minutes on: REVIEW OF Clinical notes [X ] RN notes [X] PCT documentation [X] SW notes Labs [ X] Medications [X] Care trends/care activity [X] Vitals [X] DISCUSSION WITH detective homicide squad [X] Staff SW Treatment Team [X] DISCHARGE UNSURE AT THIS TIME. DISCHARGE HOME ONCE STABLE. CODING VISIT-PSYCHIATRY Date of Service: May 10, 2025 Billing Provider: SANDRA OLMSTEAD DNP Psych Common Visit Codes: [id number] INP/OBS CARE(Mod) Problem Qualifiers (1) Major depressive disorder, recurrent: SANDRA OLMSTEAD DNP May 10, 2025 20:57
[2025-05-10 22:33] VITALS: RESP 16; O2SAT 97
[2025-05-11 07:00] VITALS: BP 148/66; PULSE 88; RESP 16; TEMP 97.8; O2SAT 98
[2025-05-11 19:00] VITALS: RESP 16; O2SAT 98
[2025-05-11 20:00] VITALS: BP 118/62; PULSE 66; RESP 16; TEMP 97.5; O2SAT 98
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
[2025-05-12 07:30] VITALS: RESP 12; O2SAT 95
[2025-05-12 08:10] VITALS: BP 120/61; PULSE 80; RESP 12; TEMP 98.4; O2SAT 95
--- NOTE | 2025-05-12 12:52 | PROGRESS NOTE ---
Progress Note Dictate Providers to CC ~ Central Line/PICC still needed: N\\A Antibiotic Ordered?: No MRSA Education MRSA Education Provided to pt: No Objective Vitals Vital Signs Date Time Temp Pulse Resp B/P (MAP) Pulse Ox O2 Delivery O2 Flow Rate FiO2 05/12/25 08:10 98.4 80 12 120/61 (80) 95 Room Air 05/10/25 07:00 0.0 Psychiatrist's Progress Note Date of Service: May 12, 2025 Notes CHART REVIEW Pt admitted on a 5150 Hold for DTS. per hold Pt is experiencing SI with plan to stab herself in the abdomen with a knife. Patient was discharged from this unit on 04/30/25 and came back to the ED the next day citing SI with plan. ASSESSMENT The patient was interviewed in observation room. The patient was actively sitting in rec room. The patient endorses "I am so upset that I started taking psychotropic because it lee your memory out." "Last night I took the trazodone and it burned my eyes and nose and I still feel it." "My eyes is dry my mouth is dry and I know that it isn't one of the side effects." "These are all the same side effects I feel at home with all the other medications." "All I think I need is an anxiety and ADHD medication." "All these meds just messes with your memory." When asked if you are still felling suicidal the patient endorses "What do you think." "No I do not have a plan." Denies HI. Denies AVH. The patient is stable no acute distress noted. The patient presents as depressed, anxious, suicidal, and somewhat engaged during session. The patient was ruminating about her life choices and her "bad" financial decisions. Per staff report patient is medication compliant. Per staff report no abnormal behaviors. Will continue daily assessment and adjusting treatment as needed. Closely monitor behavior and response to medication during hospitalization. Appearnace: Other Speech: Other (CIRCUMSTANTIAL) Eye Contact: Normal Motor Activity: Normal Affect: Full Mood: Anxious, Depressed, Irritable Orientation Impairment: None Memory Impairment: None Attention: Normal Hallucinations: None Other: None Suicidality: Ideation Homicidality: None Delusions: None Behavior: Agitated Insight: Poor Judgment: Poor Treatment Medication changes were made yesterday. We will monitor of the next 1-2 days before doing anymore medication changes. LEVOTHYROXINE 50 MCG P.O. DAILY TRAZODONE 50 MG P.O. PRN SLEEP HSMR X1 HYDROXYZINE 50 MG P.O. Q.6 PRN GABAPENTIN 200 MG PO TID LEXAPRO 15MG PO QHS 5250 HOLD-DTS- Patient is unable to formulate a plan to safety. We are still titrating medications to an effective dose while maintaining a therapeutic environment to prevent decompensation and readmission. Monitoring by Staff, Milieu, Group, and Individual counseling as needed -- According to the [place] Suicide Assessment the above named patient is on Q15 MINUTE CHECKS. Total time spent 55 minutes on REVIEW OF Clinical notes [X ] RN notes [X] PCT documentation [X] SW notes Labs [ X] Medications [X] Care trends/care activity [X] Vitals [X] DISCUSSION WITH parts counter associate [X] Staff SW Treatment Team [X] Voice recognition software may have been used to dictate this note. There may be errors due to use of such software. Reporting of serious errors is appreciated. Discharge UNSURE AT THIS TIME. DISCHARGE HOME ONCE STABLE. CODING VISIT-PSYCHIATRY Date of Service: May 12, 2025 Billing Provider: DAVID NGUYEN APRN Psych Common Visit Codes: [id number] INP/OBS CARE(Mod) DAVID NGUYEN APRN May 12, 2025 12:52
--- NOTE | 2025-05-12 18:36 | PROGRESS NOTE- Residence ---
Progress Note - Resident Providers to CC Resident Creating Document: BERNARDA PEREIRA RES ~ Antibiotic Timeout Antibiotic Ordered?: No Subjective Patient seen and examined today. Denies any complaint. Comfortably walking around in the hallway. Only states that her lips are dry due to the medications that she is receiving here. Sometimes gets leg cramps at night. Objective Vital Signs Date Time Temp Pulse Resp B/P (MAP) Pulse Ox O2 Delivery O2 Flow Rate FiO2 05/12/25 08:10 98.4 80 12 120/61 (80) 95 Room Air 05/10/25 07:00 0.0 General: Alert and oriented x 4 HEENT: Normocephalic and atraumatic. Pupils equal round and reactive to light and accommodation. Extraocular movements intact. Oral and nasal mucosa moist Neck: Trachea is in midline. No masses or JVD Lungs: Bilateral normal breath sounds. No crackles, rhonchi or wheezes Heart: Regular rate and rhythm. S1-S2 normal. No rubs or murmurs Abdomen: Soft, nontender and nondistended. Bowel sounds present PHYSICAL PLANT MANAGER: No gross sensory or motor abnormalities. Comfortably walking and denies any sensory changes Extremities: No cyanosis, clubbing or edema Skin: Warm and dry Assessment Assessment 74-year-old female with history of insomnia, anxiety/depression, palpitations secondary to anxiety, hypothyroidism, is admitted to the [facility] for suicidal ideation with plan. Patient seen at [facility] unit. The patient states feeling minimal dysuria today, but no fever, hematuria or abdominal pain. Plan Plan Insomnia Anxiety/depression Suicidal ideation with plan -continue escitalopram, lithium, trazodone, olanzapine, hydroxyzine, gabapentin. -management for Psychiatry Hypothyroidism -TSH 2.0 -continue levothyroxine 50 mcg once daily Significant weight loss Severe protein calorie malnutrition -patient states she is not eating well past few months due to anxiety -she might need appetite stimulating medication -ensure enlive t.i.d. Chest pain-resolved -recent echo done showed ejection fraction of 70%, with RVSP of 35, mild TR -troponins negative -chest pain is thought to be 2/2 anxiety -Patient denies chest pain today. Mild hyponatremia - resolved -sodium 133 05/06/2025: Sodium 136 Dysuria - possible cystitis Urinalysis negative. # MRI head ordered by the psychiatry team Efe Nagy Internal Medicine Resident [facility] Date of Service: May 12, 2025 Billing Provider: SNEHAL STRICKLAND MD Common Visit Codes: [id number] INP/OBS CARE(MOD) BERNARDA PEREIRA RES May 12, 2025 18:36 SNEHAL STRICKLAND MD May 12, 2025 21:11
[2025-05-12 19:43] VITALS: BP 112/59; PULSE 74; RESP 18; TEMP 97.2; O2SAT 95
[2025-05-12 19:45] VITALS: RESP 18; O2SAT 95
[2025-05-12] MEDS: ESCITALOPRAM 10 mg tablet 10 MG TABLET PO SCH (20:24)
--- NOTE | 2025-05-12 21:55 | RADIOLOGY REPORT ---
[facility] EXAMINATION: MR MRI HEAD INDICATION: AMS COMPARISON: None TECHNIQUE: Multiplanar, multisequence magnetic resonance imaging of the brain was performed without the use of i ntravenous contrast. FINDINGS: Motion artifact degrades evaluation. No evidence of acute or remote infarct. No intracranial hemorrhage. No mass effect. There is periventricular/deep white matter T2/FLAIR hyperintensity is nonspecific, but most commonly associated with chronic microvascular disease. There are mild global involutional changes with compensatory prominence of the ventricles and sulci. Flow voids in the major intracranial vessels are maintained. No abnormality of the orbits. Paranasal sinuses and mastoid air cells are clear. No abnormality of the visualized osseous structures and extracranial soft tissues. IMPRESSION: 1. No acute infarct, intracranial hemorrhage, or mass effect. 2. Age-related involutional changes. Chronic microvascular changes.
[2025-05-13 07:00] VITALS: BP 148/77; PULSE 89; RESP 16; TEMP 97; O2SAT 95
[2025-05-13 07:30] VITALS: RESP 16; O2SAT 95
--- NOTE | 2025-05-13 15:28 | PROGRESS NOTE ---
Progress Note Dictate Providers to CC ~ Central Line/PICC still needed: N\\A Antibiotic Ordered?: No MRSA Education MRSA Education Provided to pt: No Objective Vitals Vital Signs Date Time Temp Pulse Resp B/P (MAP) Pulse Ox O2 Delivery O2 Flow Rate FiO2 05/13/25 07:30 16 95 Room Air 05/13/25 07:00 97.0 89 148/77 (100) 05/10/25 07:00 0.0 Psychiatrist's Progress Note Date of Service: May 13, 2025 Notes CHART REVIEW Pt admitted on a 5150 Hold for DTS. per hold Pt is experiencing SI with plan to stab herself in the abdomen with a knife. Patient was discharged from this unit on 04/30/25 and came back to the ED the next day citing SI with plan. ASSESSMENT The patient was interviewed in observation room. The patient was actively walking in hallway returning from taking a shower. The patient endorses "not great." I do not have a plan to get out of here for having a place to go. "I would like to go home but I do not think I can drive anymore just because where I am calling actively and making decisions." I had memory loss, trouble sleeping, and weight loss and it is very disturbing." I am aggravated and upset with myself or not getting off the stuff months ago when the side effects with brittle bone disease and now that I have that I should have stopped it then." "I Was doing okay until I started getting treated with all these drugs." "lost a lot of friends due to self sabotage." The patient was going on and on about her financial issues and not being able to resolve them. The patient endorses she has been having trouble sleeping and she believes the Lexapro is no longer a benefit to her for her depression and she requested to start Remeron. Denies SI. Denies HI. Denies AVH. The patient is stable no acute distress noted. The patient presents as depressed, aggravated, upset, anxious (about her financial issues), and somewhat engaged during session. Per staff report patient is medication compliant. Per staff report no abnormal behaviors. Will continue daily assessment and adjusting treatment as needed. Closely monitor behavior and response to medication during hospitalization. Appearnace: Other Speech: Other (CIRCUMSTANTIAL) Eye Contact: Other (INTERMITTENT) Motor Activity: Normal Affect: Labile Mood: Depressed, Irritable Orientation Impairment: None Memory Impairment: None Attention: Normal Hallucinations: None Other: None Suicidality: None Homicidality: None Delusions: None Behavior: Agitated Insight: Poor Judgment: Poor Treatment LEVOTHYROXINE 50 MCG P.O. DAILY TRAZODONE 50 MG P.O. PRN SLEEP HSMR X1 HYDROXYZINE 50 MG P.O. Q.6 PRN GABAPENTIN 200 MG PO TID Discontinue LEXAPRO 15MG PO QHS-per patient's request Initiate REMERON 15 MG P.O. Q.H.S.-per patient's request Initiate MELATONIN 6 MG P.O. Q.H.S.-per patient's request 5250 HOLD-DTS- Patient is unable to formulate a plan to safety. We are still titrating medications to an effective dose while maintaining a therapeutic environment to prevent decompensation and readmission. Monitoring by Staff, Milieu, Group, and Individual counseling as needed -- According to the [place] Suicide Assessment the above named patient is on Q15 MINUTE CHECKS. Total time spent 65 minutes on REVIEW OF Clinical notes [X ] RN notes [X] PCT documentation [X] SW notes Labs [ X] Medications [X] Care trends/care activity [X] Vitals [X] DISCUSSION WITH magnetic resonance imaging coordinator [X] Staff SW Treatment Team [X] Voice recognition software may have been used to dictate this note. There may be errors due to use of such software. Reporting of serious errors is appreciated. Discharge UNSURE AT THIS TIME. DISCHARGE HOME ONCE STABLE. CODING VISIT-PSYCHIATRY Date of Service: May 13, 2025 Billing Provider: DAVID NGUYEN APRN Psych Common Visit Codes: [id number] INP/OBS CARE(Mod) DAVID NGUYEN APRN May 13, 2025 15:28
[2025-05-13 19:00] VITALS: RESP 18; O2SAT 97
[2025-05-13 19:40] VITALS: BP 109/54; PULSE 81; RESP 18; TEMP 97.8; O2SAT 97
[2025-05-13 19:46] VITALS: BP 106/61
[2025-05-14 07:00] VITALS: RESP 16; O2SAT 99
[2025-05-14 08:00] VITALS: BP 130/72; PULSE 86; RESP 16; TEMP 97.1; O2SAT 99
--- NOTE | 2025-05-14 09:59 | PROGRESS NOTE ---
Daily Progress Note Providers to CC ~ Antibiotic Timeout Antibiotic Ordered?: No Subjective No complaints. Patient is seen resting comfortably. Requesting eye drops Objective Vital Signs Date Time Temp Pulse Resp B/P (MAP) Pulse Ox O2 Delivery O2 Flow Rate FiO2 05/14/25 08:00 97.1 86 16 130/72 (91) 99 Room Air 05/10/25 07:00 0.0 Gen. awake alert oriented asymptomatic HEENT: Normocephalic, atraumatic, , extraocular movements are intact, sclera anicteric, conjunctiva pinkish, moist oral mucosa, no rash or ulcers. NECK: Supple, no JVD, trachea midline. CHEST: Clear to auscultation, no wheezes crackles or rhonchi. HEART: Regular rate rhythm, no murmur gallop or rub. ABDOMEN: Soft, nontender, no organomegaly. EXTREMITIES: No cyanosis clubbing or edema. NEURO EXAM: Grossly nonfocal. MUSCULOSKELETAL : No joint swelling or deformities. SKIN: No rash or ulcers noted. Coagulation Studies Medications reviewed Problem\Assessment\Plan 74 years old female with a history of insomnia, anxiety, depression, palpitations, hypothyroidism, has been admitted at [facility] for suicidal ideation. 1. Suicide ideation: Patient has a history of anxiety and depression. Continue treat per psych recommendations. 2. Hypothyroidism: Continue levothyroxine 3. Severe protein calorie malnutrition with a BMI of 17.2. Continue ensure t.i.d. 4. Dry eyes : Eye drops I will sign off. Please contact the hospitalist team for any change in patient's medical condition. Hospitalist team will continue follow the patient as per policy protocol. Date of Service: May 14, 2025 Billing Provider: VALERI DOTY MD Common Visit Codes: [id number] INP/OBS CARE(LOW) VALERI DOTY MD May 14, 2025 09:59
--- NOTE | 2025-05-14 14:05 | PROGRESS NOTE ---
Progress Note Dictate Providers to CC ~ Central Line/PICC still needed: N\\A Antibiotic Ordered?: No MRSA Education MRSA Education Provided to pt: No Objective Vitals Vital Signs Date Time Temp Pulse Resp B/P (MAP) Pulse Ox O2 Delivery O2 Flow Rate FiO2 05/14/25 08:00 97.1 86 16 130/72 (91) 99 Room Air 05/10/25 07:00 0.0 Psychiatrist's Progress Note Date of Service: May 14, 2025 Notes CHART REVIEW Pt admitted on a 5150 Hold for DTS. per hold Pt is experiencing SI with plan to stab herself in the abdomen with a knife. Patient was discharged from this unit on 04/30/25 and came back to the ED the next day citing SI with plan. ASSESSMENT The patient was interviewed in observation room. The patient was actively walking in room. The patient endorses " I am not doing well because I don't positive out look. I have blown a lot of things. I am so frail now." The patient asking to start Remeron she refused her dose last night after being informed of the side effects. The patient agreed to take Remeron tonight as ordered. The patient Denies SI. Denies HI. Denies AVH. The patient is stable no acute distress noted. The patient presents as depressed, and somewhat engaged during session. Per staff report patient is medication compliant. Per staff report no abnormal behaviors. Will continue daily assessment and adjusting treatment as needed. Closely monitor behavior and response to medication during hospitalization. Appearnace: Other Speech: Other Eye Contact: Other Motor Activity: Normal Affect: Full Mood: Depressed Orientation Impairment: None Memory Impairment: None Attention: Normal Hallucinations: None Other: None Suicidality: None Homicidality: None Delusions: None Behavior: Cooperative Insight: Poor Judgment: Poor Treatment LEVOTHYROXINE 50 MCG P.O. DAILY TRAZODONE 50 MG P.O. PRN SLEEP HSMR X1 HYDROXYZINE 50 MG P.O. Q.6 PRN GABAPENTIN 200 MG PO TID REMERON 15 MG P.O. Q.H.S.-per patient's request MELATONIN 6 MG P.O. Q.H.S.-per patient's request 5250 HOLD-DTS- Patient is unable to formulate a plan to safety. We are still titrating medications to an effective dose while maintaining a therapeutic environment to prevent decompensation and readmission. Monitoring by Staff, Milieu, Group, and Individual counseling as needed -- According to the [place] Suicide Assessment the above named patient is on Q15 MINUTE CHECKS. Total time spent 45 minutes on REVIEW OF Clinical notes [X ] RN notes [X] PCT documentation [X] SW notes Labs [ X] Medications [X] Care trends/care activity [X] Vitals [X] DISCUSSION WITH vp site [X] Staff SW Treatment Team [X] Voice recognition software may have been used to dictate this note. There may be errors due to use of such software. Reporting of serious errors is appreciated. Discharge UNSURE AT THIS TIME. DISCHARGE HOME ONCE STABLE. CODING VISIT-PSYCHIATRY Date of Service: May 14, 2025 Billing Provider: DAVID NGUYEN APRN Psych Common Visit Codes: [id number] INP/OBS CARE(Mod) DAVID NGUYEN APRN May 14, 2025 14:05
[2025-05-14 19:00] VITALS: RESP 17; O2SAT 96
[2025-05-14 20:00] VITALS: BP 107/64; PULSE 77; RESP 17; TEMP 97.8; O2SAT 96
[2025-05-15 07:00] VITALS: RESP 16; O2SAT 96
[2025-05-15 08:00] VITALS: BP 145/67; PULSE 78; RESP 16; TEMP 97.4; O2SAT 96
--- NOTE | 2025-05-15 14:00 | PROGRESS NOTE ---
Progress Note Dictate Providers to CC ~ Central Line/PICC still needed: N\\A Antibiotic Ordered?: No MRSA Education MRSA Education Provided to pt: No Objective Vitals Vital Signs Date Time Temp Pulse Resp B/P (MAP) Pulse Ox O2 Delivery O2 Flow Rate FiO2 05/15/25 08:00 97.4 78 16 145/67 (93) 96 Room Air Psychiatrist's Progress Note Date of Service: May 15, 2025 Notes CHART REVIEW Pt admitted on a 5150 Hold for DTS. per hold Pt is experiencing SI with plan to stab herself in the abdomen with a knife. Patient was discharged from this unit on 04/30/25 and came back to the ED the next day citing SI with plan. ASSESSMENT The patient was interviewed in observation room. The patient was actively sitting in room participating in activity. The patient endorses "I am fears about the memory loss and I know that it is from the chemicals from the medications. The Remeron last night and I am worse today. My eyes has been burned from the medications. I can feel it. The patient was encouraged to follow up with lmft outpatient. It is very scary way you have lost so much of who you are. The patient endorses she on any medication for "anxiety." The patient Denies SI. Denies HI. Denies AVH. The patient is stable no acute distress noted. The patient presents as engaged during session. Per staff report patient is medication compliant. Per staff report no abnormal behaviors. Will continue daily assessment and adjusting treatment as needed. Closely monitor behavior and response to medication during hospitalization. Speech: Normal Eye Contact: Normal Motor Activity: Normal Affect: Labile Mood: Anxious, Irritable Orientation Impairment: None Memory Impairment: Long-term Hallucinations: None Other: None Suicidality: None Homicidality: None Delusions: None Behavior: Agitated Insight: Poor Judgment: Poor Treatment LEVOTHYROXINE 50 MCG P.O. DAILY TRAZODONE 50 MG P.O. PRN SLEEP HSMR X1 HYDROXYZINE 50 MG P.O. Q.6 PRN Discontinue GABAPENTIN 200 MG PO TID-per patient's request Discountinue REMERON 15 MG P.O. Q.H.S.-per patient's request MELATONIN 6 MG P.O. Q.H.S.-per patient's request 5250 HOLD-DTS- Patient is unable to formulate a plan to safety. We are still titrating medications to an effective dose while maintaining a therapeutic environment to prevent decompensation and readmission. Monitoring by Staff, Milieu, Group, and Individual counseling as needed -- According to the [place] Suicide Assessment the above named patient is on Q15 MINUTE CHECKS. Total time spent 50 minutes on REVIEW OF Clinical notes [X ] RN notes [X] PCT documentation [X] SW notes Labs [ X] Medications [X] Care trends/care activity [X] Vitals [X] DISCUSSION WITH fagot heater [X] Staff SW Treatment Team [X] Voice recognition software may have been used to dictate this note. There may be errors due to use of such software. Reporting of serious errors is appr eciated. Discharge UNSURE AT THIS TIME. DISCHARGE HOME ONCE STABLE. CODING VISIT-PSYCHIATRY Date of Service: May 15, 2025 Billing Provider: DAVID NGUYEN APRN Psych Common Visit Codes: [id number] INP/OBS CARE(Mod) DAVID NGUYEN APRN May 15, 2025 14:00
[2025-05-15 19:00] VITALS: RESP 15; O2SAT 100
[2025-05-15 20:00] VITALS: BP 111/62; PULSE 80; RESP 15; TEMP 97.2; O2SAT 100
[2025-05-15] MEDS: polyvinyl alcohol eye drops 15ML BOTTLE EACHEYE PRN (20:31)
[2025-05-16 07:00] VITALS: BP 121/70; PULSE 82; RESP 16; TEMP 97.8; O2SAT 98
--- NOTE | 2025-05-16 15:43 | PROGRESS NOTE ---
Progress Note Dictate Providers to CC ~ Central Line/PICC still needed: N\\A Antibiotic Ordered?: No MRSA Education MRSA Education Provided to pt: No Objective Vitals Vital Signs Date Time Temp Pulse Resp B/P (MAP) Pulse Ox O2 Delivery O2 Flow Rate FiO2 05/16/25 07:00 97.8 82 16 121/70 (87) 98 Room Air Problem\\Assessment\\Plan Problems/Diagnosis: (1) Major depressive disorder, recurrent (2) Suicidal ideation (3) Personality disorder Psychiatrist's Progress Note Date of Service: May 16, 2025 Notes CHART REVIEW Pt admitted on a 5150 Hold for DTS. per hold Pt is experiencing SI with plan to stab herself in the abdomen with a knife. Patient was discharged from this unit on 04/30/25 and came back to the ED the next day citing SI with plan. ASSESSMENT The patient was interviewed in observation room. The patient was actively standing in hallway engaging with peer. The patient endorses "I feel pathetic, do not you think I am pathetic." The patient expresses how she had thoughts of just running out of the door and wishes that she was unconscious so she do not have to think. The patient was ruminating about high God gave her this perfect life and she blew it in all her issues stem from her childhood and she wished she would have dealt with it a long time ago. "I am paranoid I do not feel safe here, I want to g home." When asked patient if she was paranoid just because she wanted to go home or shoes really paranoid. "It is both." "I am in a horrible place in my head and in my body." "The person that was here is not here anymore. If you knew who I was months before coming here you would understand." Denies HI. Denies AVH. The patient is stable no acute distress noted. The patient presents as tearful, anxious, paranoid, irritable, agitated, and disengaged during session. The patient was all the place and appears to be worse then she when she was admitted since stopping her medication. The patient believes her cognitive issues and burning in her eyes is related to her medications. The patient has been requesting to change medications every other since admission. The patient was informed that if she continues to refuse her medication a Riese will be filed and she will have a court order forcing her to take medications.Per staff report patient is medication non-compliant. Per staff report no abnormal behaviors. Will continue daily assessment and adjusting treatment as needed. Closely monitor behavior and response to medication during hospitalization. Speech: Pressured Eye Contact: Avoidant Motor Activity: Restless Affect: Labile Mood: Anxious, Angry, Depressed, Irritable Orientation Impairment: None Memory Impairment: Long-term Attention: Normal Hallucinations: None Other: None Suicidality: Ideation Homicidality: None Delusions: Paraniod Behavior: Agitated Insight: Poor Judgment: Poor Treatment Restart REMERON 15MG PO QHS-HELP WITH ANXIETY AND DEPRESSION LEVOTHYROXINE 50 MCG P.O. DAILY TRAZODONE 50 MG P.O. PRN SLEEP HSMR X1 HYDROXYZINE 50 MG P.O. Q.6 PRN MELATONIN 6 MG P.O. Q.H.S.-per patient's request 5250 HOLD-DTS- Patient is unable to formulate a plan to safety. We are still titrating medications to an effective dose while maintaining a therapeutic environment to prevent decompensation and readmission. Monitoring by Staff, Milieu, Group, and Individual counseling as needed -- According to the [place] Suicide Assessment the above named patient is on Q15 MINUTE CHECKS. Total time spent 50 minutes on REVIEW OF Clinical notes [X ] RN notes [X] PCT documentation [X] SW notes Labs [ X] Medications [X] Care trends/care activity [X] Vitals [X] DISCUSSION WITH woodworking shop laborer [X] Staff SW Treatment Team [X] Voice recognition software may have been used to dictate this note. There may be errors due to use of such software. Reporting of serious errors is appreciated. Discharge UNSURE AT THIS TIME. DISCHARGE HOME ONCE STABLE. CODING VISIT-PSYCHIATRY Date of Service: May 16, 2025 Billing Provider: DAVID NGUYEN APRN Psych Common Visit Codes: [id number] INP/OBS CARE(Mod) Problem Qualifiers (1) Major depressive disorder, recurrent: DAVID NGUYEN APRN May 16, 2025 15:43
--- NOTE | 2025-05-16 18:04 | PROGRESS NOTE- Residence ---
Progress Note - Resident Providers to CC Resident Creating Document: KIMBER GONZAELZ, SERENITY ~ Antibiotic Timeout Antibiotic Ordered?: No Subjective Patient seen and examined today. She endorses symptoms of UTI. Reports burning micturition and lower abdominal discomfort. Objective Vital Signs Date Time Temp Pulse Resp B/P (MAP) Pulse Ox O2 Delivery O2 Flow Rate FiO2 05/16/25 07:00 97.8 82 16 121/70 (87) 98 Room Air Gen. awake alert . Oriented to time place person. Not in acute distress HEENT: Normocephalic, atraumatic, , extraocular movements are intact, sclera anicteric, conjunctiva pinkish, moist oral mucosa, no rash or ulcers. NECK: Supple, no JVD, trachea midline. CHEST: Clear to auscultation, no wheezes crackles or rhonchi. HEART: Regular rate rhythm, no murmur gallop or rub. ABDOMEN: Soft, nontender, no organomegaly. EXTREMITIES: No cyanosis clubbing or edema. NEURO EXAM: Grossly nonfocal. MUSCULOSKELETAL : No joint swelling or deformities. SKIN: No rash or ulcers noted. Advance Care Planning Advanced Care plannin - 30 Minutes Assessment Assessment 74-year-old female with history of insomnia, anxiety/depression, palpitations secondary to anxiety, hypothyroidism, is admitted to the [facility] for suicidal ideation with plan. Patient seen at [facility] unit. The patient states feeling minimal dysuria today, but no fever, hematuria or abdominal pain. Plan Plan Insomnia Anxiety/depression Suicidal ideation with plan -management for Psychiatry Hypothyroidism -TSH 2.0 -continue levothyroxine 50 mcg once daily Significant weight loss Severe protein calorie malnutrition BMI of 17 .2 -patient states she is not eating well past few months due to anxiety -ensure enlive t.i.d. Chest pain-resolved -recent echo done showed ejection fraction of 70%, with RVSP of 35, mild TR -troponins negative -chest pain is thought to be 2/2 anxiety -Patient denies chest pain today. Mild hyponatremia - resolved -sodium 136 on 05/06/2025 Dysuria - possible cystitis Urinalysis negative. Dry eyes On artificial tears MRI head showed IMPRESSION: 1. No acute infarct, intracranial hemorrhage, or mass effect. 2. Age-related involutional changes. Chronic microvascular changes. Disposition: Hospitalist team we will follow up with the rocky Gonzalez IM resident, PGY 2 Date of Service: May 16, 2025 Billing Provider: ARIANNA FONSECA MD Common Visit Codes: [id number] INP/OBS CARE(HIGH) KIMBER GONZALEZ, [facility] May 16, 2025 18:04 ARIANNA FONSECA MD May 17, 2025 15:31
[2025-05-16 19:00] VITALS: RESP 16; O2SAT 99
[2025-05-16 20:00] VITALS: BP 116/65; PULSE 77; RESP 16; TEMP 97.1; O2SAT 99
[2025-05-17 07:00] VITALS: BP 124/69; PULSE 80; RESP 16; TEMP 97.9; O2SAT 98
--- NOTE | 2025-05-17 10:58 | PROGRESS NOTE ---
Progress Note Dictate Providers to CC ~ Central Line/PICC still needed: N\\A Antibiotic Ordered?: No MRSA Education MRSA Education Provided to pt: No Objective Vitals Vital Signs Date Time Temp Pulse Resp B/P (MAP) Pulse Ox O2 Delivery O2 Flow Rate FiO2 05/17/25 07:00 97.9 80 16 124/69 (87) 98 Room Air Problem\\Assessment\\Plan Problems/Diagnosis: (1) Major depressive disorder, recurrent (2) Suicidal ideation (3) Personality disorder Psychiatrist's Progress Note Date of Service: May 17, 2025 Notes CHART REVIEW Pt admitted on a 5150 Hold for DTS. per hold Pt is experiencing SI with plan to stab herself in the abdomen with a knife. Patient was discharged from this unit on 04/30/25 and came back to the ED the next day citing SI with plan. ASSESSMENT The patient was interviewed in observation room. The patient was actively standing in hallway. The patient endorses "I am not wonderful." "I am having a hard time with everything." "I have just been having bad thoughts about the mistakes I have made what could have been what should happen." "I Can not stop getting down on myself." "I wish I could just go to sleep and everything would be better. The patient endorses suicidal ideation but no actionable both plan. Denies HI. Denies AVH. The patient endorses adequate sleep and food intake. The patient is stable no acute distress noted. The patient presents as tearful, anxious, irritable, agitated, and engaged during session. The patient appeared very anxious and fidgety. The patient was moving up and down and back in forth in her chair. Per staff report patient is medication compliant. Per staff repo rt no abnormal behaviors. Will continue daily assessment and adjusting treatment as needed. Closely monitor behavior and response to medication during hospitalization. Speech: Pressured Eye Contact: Intense Motor Activity: Restless Affect: Labile Mood: Anxious, Depressed, Irritable Orientation Impairment: Time Memory Impairment: Long-term Attention: Normal Hallucinations: None Other: None Suicidality: None Homicidality: None Delusions: None Behavior: Agitated Insight: Poor Judgment: Poor Treatment We will continue current medication regimen in increase Remeron and as Zyprexa if needed. REMERON 15MG PO QHS-HELP WITH ANXIETY AND DEPRESSION LEVOTHYROXINE 50 MCG P.O. DAILY TRAZODONE 50 MG P.O. PRN SLEEP HSMR X1 HYDROXYZINE 50 MG P.O. Q.6 PRN MELATONIN 6 MG P.O. Q.H.S.-per patient's request 5250 HOLD-DTS- Patient is unable to formulate a plan to safety. We are still titrating medications to an effective dose while maintaining a therapeutic environment to prevent decompensation and readmission. Monitoring by Staff, Milieu, Group, and Individual counseling as needed -- According to the [place] Suicide Assessment the above named patient is on Q15 M INUTE CHECKS. Total time spent 40 minutes on REVIEW OF Clinical notes [X ] RN notes [X] PCT documentation [X] SW notes Labs [ X] Medications [X] Care trends/care activity [X] Vitals [X] DISCUSSION WITH projection camera operator [X] Staff SW Treatment Team [X] Voice recognition software may have been used to dictate this note. There may be errors due to use of such software. Reporting of serious errors is appreciated. Discharge UNSURE AT THIS TIME. DISCHARGE HOME ONCE STABLE. CODING VISIT-PSYCHIATRY Date of Service: May 17, 2025 Billing Provider: DAVID NGUYEN APRN Psych Common Visit Codes: [id number] INP/OBS CARE(Mod) Problem Qualifiers (1) Major depressive disorder, recurrent: DAVID NGUYEN APRN May 17, 2025 10:58
[2025-05-17 19:00] VITALS: RESP 16; O2SAT 97
[2025-05-17 20:00] VITALS: BP 117/70; PULSE 87; RESP 16; TEMP 96.8; O2SAT 97
[2025-05-18 07:00] VITALS: RESP 14; O2SAT 98
[2025-05-18 07:30] VITALS: BP 120/70; PULSE 87; RESP 14; TEMP 97.8; O2SAT 98
--- NOTE | 2025-05-18 16:36 | PROGRESS NOTE ---
Progress Note Dictate Providers to CC ~ Central Line/PICC still needed: N\\A Antibiotic Ordered?: No MRSA Education MRSA Education Provided to pt: No Objective Vitals Vital Signs Date Time Temp Pulse Resp B/P (MAP) Pulse Ox O2 Delivery O2 Flow Rate FiO2 05/18/25 07:30 97.8 87 14 120/70 (87) 98 Room Air Problem\\Assessment\\Plan Problems/Diagnosis: (1) Major depressive disorder, recurrent (2) Suicidal ideation (3) Personality disorder Psychiatrist's Progress Note Date of Service: May 18, 2025 Notes CHART REVIEW Pt admitted on a 5150 Hold for DTS. per hold Pt is experiencing SI with plan to stab herself in the abdomen with a knife. Patient was discharged from this unit on 04/30/25 and came back to the ED the next day citing SI with plan. ASSESSMENT The patient was interviewed in observation room. The patient was actively standing in hallway. The patient endorses "I am worst then I am yesterday, I have no motivation." "I fell hopeless." "I am really scared" "I just can't do this, life." "you guys hate me, I am a pain in the butt." "I wish I can go to sleep and never wake up." "I am confused, I don't know what is going on." Denies HI. Denies AVH. The patient endorses adequate sleep and food intake. The patient is stable no acute distress noted. The patient presents as tearful, anxious, irritable, agitated, paranoid, and engaged during session. Since the patient has stopped taking her medication the patient is continuing to struggle with worsening depressed mood, high anxiety, and ruminative thoughts. Per staff report patient is medication compliant. Per staff report no abnormal behaviors. Will continue daily assessment and adjusting treatment as needed. Closely monitor behavior and response to medication during hospitalization. Speech: Pressured Eye Contact: Other (INTERMITTENT) Motor Activity: Normal Affect: Flat Mood: Anxious, Depressed Orientation Impairment: Time Attention: Normal Hallucinations: None Other: None Suicidality: Ideation Homicidality: None Delusions: Paraniod Behavior: Paranoid Insight: Poor Judgment: Poor Treatment We will increase Remeron and as Zyprexa. May add a mood stabilizer Lamictal if no improvement. Increase REMERON 30MG PO QHS-HELP WITH ANXIETY AND DEPRESSION LEVOTHYROXINE 50 MCG P.O. DAILY TRAZODONE 50 MG P.O. PRN SLEEP HSMR X1 HYDROXYZINE 50 MG P.O. Q.6 PRN MELATONIN 6 MG P.O. Q.H.S.-per patient's request Initiate ZYPREXA 5 MG P.O. Q.H.S. 5270 HOLD-GD- Patient is unable to formulate a plan to provide food, clothing, and jail. We are still titrating medications to an effective dose while maintaining a therapeutic environment to prevent decompensation and readmission. Monitoring by Staff, Milieu, Group, and Individual counseling as needed -- According to the [place] Suicide Assessment the above named patient is on Q15 MINUTE CHECKS. Total time spent 60 minutes on REVIEW OF Clinical notes [X ] RN notes [X] PCT documentation [X] SW notes Labs [ X] Medications [X] Care trends/care activity [X] Vitals [X] DISCUSSION WITH community outreach coordinator [X] Staff SW Treatment Team [X] Voice recognition software may have been used to dictate this note. There may be errors due to use of such software. Reporting of serious errors is appreciated. Discharge UNSURE AT THIS TIME. DISCHARGE HOME ONCE STABLE. CODING VISIT-PSYCHIATRY Date of Service: May 18, 2025 Billing Provider: DAVID NGUYEN APRN Psych Common Visit Codes: [id number] INP/OBS CARE(Mod) Problem Qualifiers (1) Major depressive disorder, recurrent: DAVID NGUYEN APRN May 18, 2025 16:36
[2025-05-18] MEDS ORDERED: Chloraseptic (Phenol) Spray 177ml MM PRN (17:00)
[2025-05-18] MEDS: multivitamins, therapeutics tablet PO SCH (17:24)
[2025-05-18 19:00] VITALS: RESP 14; O2SAT 97
[2025-05-18 20:00] VITALS: BP 97/53; PULSE 77; RESP 14; TEMP 97.8; O2SAT 97
[2025-05-18] MEDS: OLANZapine 5mg rapidly disint. tablet PO ONE (20:50)
[2025-05-19 07:15] VITALS: RESP 14; O2SAT 98
[2025-05-19 07:20] VITALS: BP 122/72; PULSE 95; RESP 14; TEMP 97.1; O2SAT 98
--- NOTE | 2025-05-19 14:08 | PROGRESS NOTE ---
Progress Note Dictate Providers to CC ~ Central Line/PICC still needed: N\\A Antibiotic Ordered?: No MRSA Education MRSA Education Provided to pt: No Objective Vitals Vital Signs Date Time Temp Pulse Resp B/P (MAP) Pulse Ox O2 Delivery O2 Flow Rate FiO2 05/19/25 07:20 97.1 95 14 122/72 (89) 98 Room Air Problem\\Assessment\\Plan Problems/Diagnosis: (1) Major depressive disorder, recurrent (2) Suicidal ideation (3) Personality disorder Psychiatrist's Progress Note Date of Service: May 19, 2025 Notes CHART REVIEW Pt admitted on a 5150 Hold for DTS. per hold Pt is experiencing SI with plan to stab herself in the abdomen with a knife. Patient was discharged from this unit on 04/30/25 and came back to the ED the next day citing SI with plan. ASSESSMENT The patient was interviewed in observation room. The patient was actively standing in hallway. The patient endorses "Discouraged because there are so many things rolling around in my mind. I am very anxious inside. I have been a bad representation to the Lord [employer] that is my biggest problem." The patient is going on and on about how this honest she has been in her life to others and how she has missed treated people. I am spiritually and emotionally drained. The patient's then starts going on and on about giving her jacket away to another patient that was discharge today and how she should not have given the patient her jacket and she kept going on and on about the poison in her body. The patient is all over the place in hard to follow. Denies SI. Denies HI. Denies AVH. The patient endorses adequate sleep and food intake. The patient is stable no acute distress noted. The patient presents as anxious, hopeless, paranoid, and engaged during session. The patient may benefit from a mood stabilizer. Per staff report patient is medication compliant. Per staff report no abnormal behaviors. Will continue daily assessment and adjusting treatment as needed. Closely monitor behavior and response to medication during hospitalization. The patient continues to endorse a negative mindset, feeling emotional low, and ruminating on all the regrets she has for her life. Speech: Pressured Eye Contact: Avoidant Motor Activity: Restless Affect: Full Mood: Anxious Orientation Impairment: None Memory Impairment: Long-term Attention: Normal Hallucinations: None Other: None Suicidality: None Homicidality: None Delusions: Presybeterian Insight: Poor Judgment: Poor Treatment REMERON 30MG PO QHS-HELP WITH ANXIETY AND DEPRESSION LEVOTHYROXINE 50 MCG P.O. DAILY TRAZODONE 50 MG P.O. PRN SLEEP HSMR X1 Discontinue HYDROXYZINE 50 MG P.O. Q.6 PRN MELATONIN 6 MG P.O. Q.H.S.-per patient's request ZYPREXA 5 MG P.O. Q.H.S. Initiate LAMOTRIGINE 25MG PO DAILY Initiate CLONIDINE 0.1 MG P.O. B.I.D. PRN-ANXIETY 5270 HOLD-GD- Patient is unable to formulate a plan to provide food, clothing, and penitentiary. We are still titrating medications to an effective dose while maintaining a therapeutic environment to prevent decompensation and readmission. Monitoring by Staff, Milieu, Group, and Individual counseling as needed -- According to the [place] Suicide Assessment the above named patient is on Q15 MINUTE CHECKS. Total time spent 45 minutes on REVIEW OF Clinical notes [X ] RN notes [X] PCT documentation [X] SW notes Labs [ X] Medications [X] Care trends/care activity [X] Vitals [X] DISCUSSION WITH trial court justice [X] Staff SW Treatment Team [X] Voice recognition software may have been used to dictate this note. There may be errors due to use of such software. Reporting of serious errors is appreciated. Discharge UNSURE AT THIS TIME. DISCHARGE HOME ONCE STABLE. CODING VISIT-PSYCHIATRY Date of Service: May 19, 2025 Billing Provider: DAVID NGUYEN APRN Psych Common Visit Codes: [id number] INP/OBS CARE(Mod) Problem Qualifiers (1) Major depressive disorder, recurrent: DAVID NGUYEN APRN May 19, 2025 14:08
[2025-05-19 19:00] VITALS: RESP 18; O2SAT 97
[2025-05-19 20:00] VITALS: BP 103/60; PULSE 76; RESP 18; TEMP 97.5; O2SAT 97
[2025-05-20 07:00] VITALS: BP 131/72; PULSE 74; RESP 14; TEMP 98.7; O2SAT 98
[2025-05-20 07:30] VITALS: RESP 14; O2SAT 98
--- NOTE | 2025-05-20 10:26 | PROGRESS NOTE ---
Daily Progress Note Providers to CC ~ Antibiotic Timeout Antibiotic Ordered?: No Subjective Complains of mid back pain but states it is chronic. Objective Vital Signs Date Time Temp Pulse Resp B/P (MAP) Pulse Ox O2 Delivery O2 Flow Rate FiO2 05/19/25 20:00 97.5 76 18 103/60 (74) 97 Room Air Gen. awake alert oriented asymptomatic HEENT: Normocephalic, atraumatic, , extraocular movements are intact, sclera anicteric, conjunctiva pinkish, moist oral mucosa, no rash or ulcers. NECK: Supple, no JVD, trachea midline. CHEST: Clear to auscultation, no wheezes crackles or rhonchi. HEART: Regular rate rhythm, no murmur gallop or rub. ABDOMEN: Soft, nontender, no organomegaly. EXTREMITIES: No cyanosis clubbing or edema. NEURO EXAM: Grossly nonfocal. MUSCULOSKELETAL : No joint swelling or deformities. SKIN: No rash or ulcers noted. Other Results Medications reviewed Problem\Assessment\Plan 74 years old female with a history of insomnia, anxiety, depression, palpita tions, hypothyroidism, has been admitted at [facility] for suicidal ideation. 1. Suicide ideation: Patient has a history of anxiety and depression. Continue treat per psych recommendations. 2. Hypothyroidism: Continue levothyroxine 3. Severe protein calorie malnutrition with a BMI of 17.2. Continue ensure t.i.d. 4. Dry eyes : Eye drops 5. Chronic back pain : Non narcotic medications as needed I will sign off. Please contact the hospitalist team for any change in patient's medical condition. Hospitalist team will continue follow the patient as per policy protocol. Date of Service: May 20, 2025 Billing Provider: VALERI DOTY MD Common Visit Codes: [id number] INP/OBS CARE(LOW) VALERI DOTY MD May 20, 2025 10:26
--- NOTE | 2025-05-20 16:11 | PROGRESS NOTE ---
Progress Note Dictate Providers to CC ~ Central Line/PICC still needed: N\\A Antibiotic Ordered?: No MRSA Education MRSA Education Provided to pt: No Objective Vitals Vital Signs Date Time Temp Pulse Resp B/P (MAP) Pulse Ox O2 Delivery O2 Flow Rate FiO2 05/20/25 07:30 14 98 Room Air 05/20/25 07:00 98.7 74 131/72 (91) Problem\\Assessment\\Plan Problems/Diagnosis: (1) Major depressive disorder, recurrent (2) Suicidal ideation (3) Personality disorder Psychiatrist's Progress Note Date of Service: May 20, 2025 Notes CHART REVIEW Pt admitted on a 5150 Hold for DTS. per hold Pt is experiencing SI with plan to stab herself in the abdomen with a knife. Patient was discharged from this unit on 04/30/25 and came back to the ED the next day citing SI with plan. ASSESSMENT The patient was interviewed in observation room. The patient was actively standing in hallway. The patient endorses "I am concerned about my about spiritual life because I sinned before God." 'I have not been the person God w anted me to be." "I have to repent." When asked if you have thoughts of harming yourself the patient endorses "I wouldn't do it." The patient endorses "I hate the way I look because I do not have the joint of the Lord." SI. Denies HI. Denies AVH. The patient endorses adequate sleep and food intake. The patient is stable no acute distress noted. The patient presents as less anxious, pre-religiously occupied, paranoid (that others are looking at her because of the way she looks like), and engaged during session. Per staff report patient is medication compliant. Per staff report no abnormal behaviors. Will continue daily assessment and adjusting treatment as needed. Closely monitor behavior and response to medication during hospitalization. Speech: Other (CIRCUMSTANTIAL) Eye Contact: Normal Motor Activity: Normal Affect: Full Orientation Impairment: None Memory Impairment: None Attention: Normal Hallucinations: None Other: None Suicidality: None Homicidality: None Delusions: Scientology Behavior: Cooperative Insight: Poor Judgment: Poor Treatment We will increase Zyprexa to see if it will help with depression. REMERON 30MG PO QHS-HELP WITH ANXIETY AND DEPRESSION LEVOTHYROXINE 50 MCG P.O. DAILY TRAZODONE 50 MG P.O. PRN SLEEP HSMR X1 HYDROXYZINE 50 MG P.O. Q.6 PRN MELATONIN 6 MG P.O. Q.H.S.-per patient's request Increase ZYPREXA 10 MG P.O. Q.H.S. LAMOTRIGINE 25MG PO DAILY CLONIDINE 0.1 MG P.O. B.I.D. PRN-ANXIETY 5270 HOLD-GD- Patient is unable to formulate a plan to provide food, clothing, and fdc. We are still titrating medications to an effective dose while maintaining a therapeutic environment to prevent decompensation and readmission. Monitoring by Staff, Milieu, Group, and Individual counseling as needed -- According to the [place] Suicide Assessment the above named patient is on Q15 M INUTE CHECKS. Total time spent 40 minutes on REVIEW OF Clinical notes [X ] RN notes [X] PCT documentation [X] SW notes Labs [ X] Medications [X] Care trends/care activity [X] Vitals [X] DISCUSSION WITH adult basic education teacher [X] Staff SW Treatment Team [X] Voice recognition software may have been used to dictate this note. There may be errors due to use of such software. Reporting of serious errors is appreciated. Discharge UNSURE AT THIS TIME. DISCHARGE HOME ONCE STABLE. CODING VISIT-PSYCHIATRY Date of Service: May 20, 2025 Billing Provider: DAVID NGUYEN APRN Psych Common Visit Codes: [id number] INP/OBS CARE(Mod) Problem Qualifiers (1) Major depressive disorder, recurrent: DAVID NGUYEN APRN May 20, 2025 16:11
[2025-05-20 19:00] VITALS: RESP 17; O2SAT 97
[2025-05-20 20:00] VITALS: BP 116/60; PULSE 82; RESP 17; TEMP 97.9; O2SAT 97
[2025-05-21 07:35] VITALS: RESP 16; O2SAT 97
[2025-05-21 08:00] VITALS: BP 137/75; PULSE 81; RESP 17; TEMP 97.6; O2SAT 97
--- NOTE | 2025-05-21 11:21 | PROGRESS NOTE ---
Progress Note Dictate Providers to CC ~ Central Line/PICC still needed: N\\A Antibiotic Ordered?: No MRSA Education MRSA Education Provided to pt: No Objective Vitals Vital Signs Date Time Temp Pulse Resp B/P (MAP) Pulse Ox O2 Delivery O2 Flow Rate FiO2 05/21/25 08:00 97.6 81 17 137/75 (95) 97 Room Air Problem\\Assessment\\Plan Problems/Diagnosis: (1) Major depressive disorder, recurrent (2) Suicidal ideation (3) Personality disorder Psychiatrist's Progress Note Date of Service: May 21, 2025 Notes CHART REVIEW Pt admitted on a 5150 Hold for DTS. per hold Pt is experiencing SI with plan to stab herself in the abdomen with a knife. Patient was discharged from this unit on 04/30/25 and came back to the ED the next day citing SI with plan. ASSESSMENT The patient was interviewed in observation room. The patient was actively sitting edge of bed. The patient endorses "I am doing better I guess." The patient is going on and on and on about how all the medications make her eyes burn and make her have memory loss. "I don't want to be here like this." When asked the patient if she was suicidal she said "no I think about it but I would never do it." SI. Denies HI. Denies AVH. The patient endorses adequate sleep and food intake. The patient is stable no acute distress noted. The patient presents as less anxious, less paranoid, and engaged during session. Per staff report patient is medication compliant. The patient has shown some improvement. Per staff report no abnormal behaviors. Will continue daily assessment and adjusting treatment as needed. Closely monitor behavior and response to medication during hospitalization. Speech: Normal Eye Contact: Normal Motor Activity: Normal Affect: Full Mood: Depressed Orientation Impairment: None Memory Impairment: None Attention: Normal Hallucinations: None Other: None Suicidality: None Homicidality: None Delusions: None Behavior: Cooperative Insight: Poor Judgment: Poor Treatment REMERON 30MG PO QHS-HELP WITH ANXIETY AND DEPRESSION LEVOTHYROXINE 50 MCG P.O. DAILY TRAZODONE 50 MG P.O. PRN SLEEP HSMR X1 HYDROXYZINE 50 MG P.O. Q.6 PRN MELATONIN 6 MG P.O. Q.H.S.-per patient's request ZYPREXA 10 MG P.O. Q.H.S. LAMOTRIGINE 25MG PO DAILY CLONIDINE 0.1 MG P.O. B.I.D. PRN-ANXIETY 5270 HOLD-GD- Patient is unable to formulate a plan to provide food, clothing, and nursing home. We are still titrating medications to an effective dose while maint aining a therapeutic environment to prevent decompensation and readmission. Monitoring by Staff, Milieu, Group, and Individual counseling as needed -- According to the [place] Suicide Assessment the above named patient is on Q15 MINUTE CHECKS. Total time spent 60 minutes on REVIEW OF Clinical notes [X ] RN notes [X] PCT documentation [X] SW notes Labs [ X] Medications [X] Care trends/care activity [X] Vitals [X] DISCUSSION WITH aluminum welder [X] Staff SW Treatment Team [X] Voice recognition software may have been used to dictate this note. There may be errors due to use of such software. Reporting of serious errors is appreciat ed. Discharge UNSURE AT THIS TIME. DISCHARGE HOME ONCE STABLE. CODING VISIT-PSYCHIATRY Date of Service: May 21, 2025 Billing Provider: DAVID NGUYEN APRN Psych Common Visit Codes: [id number] INP/OBS CARE(Mod) Problem Qualifiers (1) Major depressive disorder, recurrent: DAVID NGUYEN APRN May 21, 2025 11:20
[2025-05-21 19:00] VITALS: RESP 18; O2SAT 97
[2025-05-21 20:00] VITALS: BP 97/54; PULSE 79; RESP 18; TEMP 98.4; O2SAT 97
[2025-05-22 07:12] VITALS: RESP 16; O2SAT 97
[2025-05-22 08:00] VITALS: BP 129/65; PULSE 90; RESP 18; TEMP 98.2; O2SAT 99
[2025-05-22] MEDS ORDERED: mag hydrox/Alum hydrox/simeth 30ml oral suspension PO PRN (08:35)
[2025-05-22] MEDS ORDERED: loperamide 2mg capsule PO PRN (08:35)
[2025-05-22] MEDS: magnesium hydroxide 30ml (MOM) UD suspension PO PRN (10:27)
--- NOTE | 2025-05-22 12:07 | PROGRESS NOTE ---
Progress Note Dictate Providers to CC ~ Central Line/PICC still needed: N\A Antibiotic Ordered?: No Objective Vitals Vital Signs Date Time Temp Pulse Resp B/P (MAP) Pulse Ox O2 Delivery O2 Flow Rate FiO2 05/22/25 08:00 98.2 90 18 129/65 (86) 99 Room Air Problem\Assessment\Plan Problems/Diagnosis: (1) Major depressive disorder, recurrent (2) Mood disorder (3) Suicidal ideation Psychiatrist's Progress Note Date of Service: May 22, 2025 Notes Ms Jhony Hi is a 74-year-old female presents for thoughts of suicidal ideation. She was admitted here and in our [facility] unit and discharged yesterday and feels that she was discharged too soon. She is still experiencing depression and hopelessness. She does not have any active plan to end her life, but has thought about stabbing herself with a knife in the abdomen earlier today. She reports that she has not been sleeping well on average 2 hours per night. She used to take Prozac for many years and then restarted it without any success. Yesterday she started on Lexapro. While she was in our [facility] unit she was receiving Atarax 3 times a day and Restoril to help her sleep. A prescription for Restoril was sent to the pharmacy but she was unable to pick it up due to insurance complications. Patient is a short petite underweight elderly lady. She has short dyed red hair. Wears glasses. She is wearing a sweater with green scrub bottoms. Nothing new. 'I really have issues with the zyprexa' feeling worse when she takes it. Feels she is over medicated. She doesn't want to try a different med. 'issues with my eyes, brittle bones, 'I've shrunken and hear my bones,' 'not in a great place.' Feeling pretty depressed. 'well, yeah,' Argument in my head.' Not having AH. Prozac made her anxious. She started to try. Feels there has been memory loss. 'then I'll be anxious.' 'I don't want to be with no personality.' Still feeling pretty anxious. Still a bit suicidal. 'I just don't want to be in the state of mind that I am in.' Mental Status Eye contact: Fair; Behavior: Cooperative. Speech: Not so Rapid, pressured, still a bit disorganized. No Flight of ideas. Mood: Depressed/anxious Affect: Constricted. Thought process: Not so disorganized, Circumstantial/Tangential at times. Seems a bit Paranoid vs signif anxiety. Does not express Delusions. Thought Content: immediate needs/medications. Cognition: A&O X4; Insight: Poor; Judgment: Poor; SI Passive/HI Denies, AH Denies/VH Denies Results Of any Diagn. Testing Labs reviewed Hyponatremia resolved. Malnutrition Low Albumin. Treatment Patient worried about not feeling as clear a little sedated with the Zyprexa. She is willing to try Latuda instead. Will titrate Latuda to effective dose and decrease Zyprexa. I still think she may require a faster acting mood stabilizer like [place] or Depakote rather than the Lamictal. TRY Latuda 40mg QDD. REMERON 30MG PO QHS-HELP WITH ANXIETY AND DEPRESSION LEVOTHYROXINE 50 MCG P.O. DAILY TRAZODONE 50 MG P.O. PRN SLEEP HSMR X1 HYDROXYZINE 50 MG P.O. Q.6 PRN MELATONIN 6 MG P.O. Q.H.S.-per patient's request Decrease ZYPREXA 5 MG P.O. Q.H.S. LAMOTRIGINE 25MG PO DAILY CLONIDINE 0.1 MG P.O. B.I.D. PRN-ANXIETY Monitoring by Staff, Milieu, Group, and Individual counseling as needed -- According to the [place] Suicide Assessment the above named patient is on Q 15 MINUTE CHECKS. 5270 HOLD-GD- Patient is unable to formulate a plan to provide food, clothing, and [facility]. We are still titrating medications to an effective dose while maintaining a therapeutic environment to prevent decompensation and readmission. DISCHARGE UNSURE AT THIS TIME. DISCHARGE HOME ONCE STABLE. REVIEW OF Clinical notes [X ] RN notes [X] PCT documentation [X] SW notes [X] Labs [ X] Medications [X] Care trends/care activity [X] Vitals [X] DISCUSSION WITH sheetfed press operator [X] CODING VISIT-PSYCHIATRY Date of Service: May 22, 2025 Billing Provider: MICHAEL ZHOU Psych Common Visit Codes: [id number] INP/OBS CARE(High) Problem Qualifiers (1) Major depressive disorder, recurrent: MICHAEL ZHOU May 22, 2025 12:07
[2025-05-22 19:00] VITALS: RESP 20; O2SAT 95
--- NOTE | 2025-05-22 19:55 | PROGRESS NOTE ---
Daily Progress Note Providers to CC ~ Antibiotic Timeout Antibiotic Ordered?: No Subjective This is the hospitalist progress note on patients hospitalized at [facility] [place]. The patient has no acute medical complaints or concerns are none were voiced by nursing staff either. Objective Vital Signs Date Time Temp Pulse Resp B/P (MAP) Pulse Ox O2 Delivery O2 Flow Rate FiO2 05/22/25 08:00 98.2 90 18 129/65 (86) 99 Room Air Gen. No acute distress alert and oriented Lungs clear to ascultation bilaterally, no wheezes rales or rhonchi appreciated Heart normal sinus rhythm no murmurs rubs or clicks noted Abdomen soft nontender bowel sounds are normoactive Lower extremities no clubbing cyanosis, nor edema appreciated bilaterally Problem\Assessment\Plan 74 years old female with a history of insomnia, anxiety, depression, palpitations, hypothyroidism, has been admitted at [facility] for suicidal ideation. 1. Suicide ideation: Patient has a history of anxiety and depression. Continue treat per psych recommendations. 2. Hypothyroidism: Continue levothyroxine 3. Severe protein calorie malnutrition with a BMI of 17.2. Continue ensure t.i.d. 4. Dry eyes : Eye drops 5. Chronic back pain : Non narcotic medications as needed No acute medical complaints or concerns The hospitalist team will continue to follow the patient. Date of Service: May 22, 2025 Billing Provider: VIVIAN OLSON DO Common Visit Codes: [id number] INP/OBS CARE(LOW) VIVIAN OLSON DO May 22, 2025 19:55
[2025-05-22 20:00] VITALS: BP 119/64; PULSE 87; RESP 20; TEMP 98.1; O2SAT 95
[2025-05-22] MEDS: OLANZAPINE 5 MG TABLET PO SCH (21:46)
[2025-05-23 07:00] VITALS: RESP 16; O2SAT 99
[2025-05-23 08:12] VITALS: BP 120/76; PULSE 90; RESP 18; TEMP 98.2; O2SAT 99
--- NOTE | 2025-05-23 13:37 | PROGRESS NOTE ---
Progress Note Dictate Providers to CC ~ Central Line/PICC still needed: N\A Antibiotic Ordered?: No Objective Vitals Vital Signs Date Time Temp Pulse Resp B/P (MAP) Pulse Ox O2 Delivery O2 Flow Rate FiO2 05/23/25 08:12 98.2 90 18 120/76 (91) 99 Room Air Problem\Assessment\Plan Problems/Diagnosis: (1) Major depressive disorder, recurrent (2) Mood disorder (3) Suicidal ideation Psychiatrist's Progress Note Date of Service: May 23, 2025 Notes Ms Jhony Hi is a 74-year-old female presents for thoughts of suicidal i deation. She was admitted here and in our [facility] unit and discharged yesterday and feels that she was discharged too soon. She is still experiencing depression and hopelessness. She does not have any active plan to end her life, but has thought about stabbing herself with a knife in the abdomen earlier today. She reports that she has not been sleeping well on average 2 hours per night. She used to take Prozac for many years and then restarted it without any success. Yesterday she started on Lexapro. While she was in our [facility] unit she was receiving Atarax 3 times a day and Restoril to help her sleep. A prescription for Restoril was sent to the pharmacy but she was unable to pick it up due to insurance complications. Patient is a short petite underweight elderly lady. She has short dyed red hair. Wears glasses. She is wearing green scrub bottoms. 'I kind of was reverting.' She thinks it would be better to go back on the med I used before. Really struggling big time. Racing thoughts. Worry. Ruminating constantly. Not able to rest her mind. She is very anxious. Slept last night off and on. Back and forth and indecisive. Mental Status Eye contact: Fair; Behavior: Cooperative. Speech: Not so Rapid, pressured, still a bit disorganized. No Flight of ideas. Mood: Depressed/anxious Affect: Constricted. Thought process: Not so disorganized, Circumstantial/Tangential at times. Seems a bit Paranoid vs signif anxiety. Does not express Delusions. Thought Content: immediate needs/medications. Cognition: A&O X4; Insight: Poor; Judgment: Poor; SI Passive/HI Denies, AH Denies/VH Denies Results Of any Diagn. Testing Labs reviewed Hyponatremia resolved. Malnutrition Low Albumin. Treatment She would like to go back to Mag[facility]'s plan. So we will just d/c the Latuda and increase the Zyprexa back to 10mg. d/c Latuda 40mg QDD. REMERON 30MG PO QHS-HELP WITH ANXIETY AND DEPRESSION LEVOTHYROXINE 50 MCG P.O. DAILY TRAZODONE 50 MG P.O. PRN SLEEP HSMR X1 HYDROXYZINE 50 MG P.O. Q.6 PRN MELATONIN 6 MG P.O. Q.H.S.-per patient's request Increase it back ZYPREXA 10 MG P.O. Q.H.S. LAMOTRIGINE 25MG PO DAILY CLONIDINE 0.1 MG P.O. B.I.D. PRN-ANXIETY Monitoring by Staff, Milieu, Group, and Individual counseling as needed -- According to the [place] Suicide Assessment the above named patient is on Q 15 MINUTE CHECKS. 5270 HOLD-GD- Patient is unable to formulate a plan to provide food, clothing, and intermediate. We are still titrating medications to an effective dose while maintaining a therapeutic environment to prevent decompensation and readmission. DISCHARGE UNSURE AT THIS TIME. DISCHARGE HOME ONCE STABLE. REVIEW OF Clinical notes [X ] RN notes [X] PCT documentation [X] SW notes [X] Labs [ X] Medications [X] Care trends/care activity [X] Vitals [X] DISCUSSION WITH customs compliance director [X] CODING VISIT-PSYCHIATRY Date of Service: May 23, 2025 Billing Provider: MICHAEL ZHOU Psych Common Visit Codes: [id number] INP/OBS CARE(Mod) Problem Qualifiers (1) Major depressive disorder, recurrent: MICHAEL ZHOU May 23, 2025 13:37
[2025-05-23 19:00] VITALS: RESP 18; O2SAT 98
[2025-05-23 19:50] VITALS: BP 131/68; PULSE 79; RESP 18; TEMP 97; O2SAT 98
[2025-05-23] MEDS: OLANZAPINE 5 MG TABLET PO SCH (21:07)
[2025-05-24 07:26] VITALS: RESP 16; O2SAT 97
[2025-05-24 08:00] VITALS: BP 125/78; PULSE 88; RESP 18; TEMP 98.5; O2SAT 99
--- NOTE | 2025-05-24 14:45 | PROGRESS NOTE ---
Progress Note Dictate Providers to CC ~ Central Line/PICC still needed: N\\A Antibiotic Ordered?: No MRSA Education MRSA Education Provided to pt: No Objective Vitals Vital Signs Date Time Temp Pulse Resp B/P (MAP) Pulse Ox O2 Delivery O2 Flow Rate FiO2 05/24/25 08:00 98.5 88 18 125/78 (94) 99 Room Air Problem\\Assessment\\Plan Problems/Diagnosis: (1) Major depressive disorder, recurrent (2) Suicidal ideation (3) Personality disorder Psychiatrist's Progress Note Date of Service: May 24, 2025 Notes CHART REVIEW Pt admitted on a 5150 Hold for DTS. per hold Pt is experiencing SI with plan to stab herself in the abdomen with a knife. Patient was discharged from this unit on 04/30/25 and came back to the ED the next day citing SI with plan. ASSESSMENT The patient was interviewed in observation room. The patient was actively standing in hallway talking on telephone. The patient endorses "Jhony is great other than I have a lot of stuff going on outside of here." Denies SI. Denies HI. Denies AVH. The patient endorses adequate sleep and food intake. The patient is stable no acute distress noted. The patient presents as less anxious, less paranoid, and engaged during session. Per staff report patient is medication compliant. The patient has shown some improvement. Per staff report no abnormal behaviors. Will continue daily assessment and adjusting treatment as needed. Closely monitor behavior and response to medication during hospitalization. Appearnace: Other Speech: Other (CIRCUMSTANTIAL) Eye Contact: Normal Motor Activity: Normal Affect: Full Orientation Impairment: None Memory Impairment: None Attention: Normal Hallucinations: None Other: None Suicidality: None Homicidality: None Delusions: None Behavior: Cooperative Insight: Fair, Poor Judgment: Fair, Poor Treatment REMERON 30MG PO QHS-HELP WITH ANXIETY AND DEPRESSION LEVOTHYROXINE 50 MCG P.O. DAILY TRAZODONE 50 MG P.O. PRN SLEEP HSMR X1 HYDROXYZINE 50 MG P.O. Q.6 PRN MELATONIN 6 MG P.O. Q.H.S.-per patient's request ZYPREXA 10 MG P.O. Q.H.S. Increase LAMOTRIGINE 50MG PO DAILY CLONIDINE 0.1 MG P.O. B.I.D. PRN-ANXIETY 5270 HOLD-GD- Patient is unable to formulate a plan to provide food, clothing, and long-term. We are still titrating medications to an effective dose while maintaining a therapeutic environment to prevent decompensation and readmission. Monitoring by Staff, Milieu, Group, and Individual counseling as needed -- According to the [place] Suicide Assessment the above named patient is on Q15 MINUTE CHECKS. Total time spent 60 minutes on REVIEW OF Clinical notes [X ] RN notes [X] PCT documentation [X] SW notes Labs [ X] Medications [X] Care trends/care activity [X] Vitals [X] DISCUSSION WITH electric screw driver operator [X] Staff SW Treatment Team [X] Voice recognition software may have been used to dictate this note. There may be errors due to use of such software. Reporting of serious errors is appreciated. Discharge UNSURE AT THIS TIME. DISCHARGE HOME ONCE STABLE. CODING VISIT-PSYCHIATRY Date of Service: May 24, 2025 Billing Provider: DAVID NGUYEN APRN Psych Common Visit Codes: [id number] INP/OBS CARE(Mod) Problem Qualifiers (1) Major depressive disorder, recurrent: DAVID NGUYEN APRN May 24, 2025 14:45
[2025-05-24 19:00] VITALS: RESP 18; O2SAT 99
[2025-05-24 20:00] VITALS: BP 134/68; PULSE 74; RESP 18; TEMP 96.5; O2SAT 90
--- NOTE | 2025-05-24 20:17 | PROGRESS NOTE- Residence ---
Progress Note - Resident Providers to CC Resident Creating Document: JAYLYN MORFIN, RES ~ Antibiotic Timeout Antibiotic Ordered?: No Subjective The patient was seen and examined at bedside today. She complains of mild abdominal pain secondary to IBS. She reported that she was having constipation but later had bowel movement after taking MiraLax. Objective Vital Signs Date Time Temp Pulse Resp B/P (MAP) Pulse Ox O2 Delivery O2 Flow Rate FiO2 05/24/25 19:00 18 99 Room Air 05/24/25 08:00 98.5 88 125/78 (94) Head: Normocephalic with an atraumatic Eyes: Pupils- 3mm, reacting to light, conjunctiva- anicteric Nose and throat: No polyps, septum- normal, no mucosal ulcers Neck: Supple, no lymphadenopathy, no carotid bruit Respiratory: No use of accessory muscles of respiration, Bilateral normal vesiscular breath sounds heard. No wheeze, rhochi or creps Cardiac: S1-S2 heard, rythm regular, no gallop/murmur Abdomen: non distended, no tenderness, no organomegaly, bowel sounds - heard Extremities: no clubbing, no pedal edema, no deformities, peripheral pulses - 2+ Skin: warm and dry, no rash, no purpura Neuro: No focal deficit, gross cranial nerve exam - normal Assessment Assessment 74-year-old female with history of insomnia, anxiety/depression, palpitations secondary to anxiety, hypothyroidism, is admitted to the [facility] for suicidal ideation with plan. Plan Plan Insomnia Anxiety/depression Suicidal ideation with plan -management for Psychiatry Hypothyroidism -TSH 2.0 -continue levothyroxine 50 mcg once daily Significant weight loss Severe protein calorie malnutrition BMI of 17 .2 -patient states she is not eating well past few months due to anxiety -ensure enlive t.i.d. Chest pain-resolved -recent echo done showed ejection fraction of 70%, with RVSP of 35, mild TR -troponins negative -chest pain is thought to be 2/2 anxiety -Patient denies chest pain today. Mild hyponatremia - resolved -sodium 136 on 05/06/2025 Dysuria - possible cystitis Urinalysis negative. Dry eyes On artificial tears Disposition: Hospitalist team we will follow up with the patient during the course of the hospital stay. Jaylyn Morfin MD Internal Medicine Resident, PGY-2 Date of Service: May 24, 2025 Billing Provider: ARIANNA FONSECA MD Common Visit Codes: [id number] INP/OBS CARE(HIGH) OANH MORFINMYPaty METZ, RES May 24, 2025 20:17 ARIANNA FONSECA MD Jun 17, 2025 21:06
[2025-05-25 07:00] VITALS: RESP 16; O2SAT 96
[2025-05-25 08:24] VITALS: BP 131/82; PULSE 94; RESP 16; TEMP 97.9; O2SAT 96
--- NOTE | 2025-05-25 16:56 | PROGRESS NOTE ---
Progress Note Dictate Providers to CC ~ Central Line/PICC still needed: N\\A Antibiotic Ordered?: No MRSA Education MRSA Education Provided to pt: No Objective Vitals Vital Signs Date Time Temp Pulse Resp B/P (MAP) Pulse Ox O2 Delivery O2 Flow Rate FiO2 05/25/25 08:24 97.9 94 16 131/82 (98) 96 Room Air Problem\\Assessment\\Plan Problems/Diagnosis: (1) Major depressive disorder, recurrent (2) Suicidal ideation (3) Personality disorder Psychiatrist's Progress Note Date of Service: May 25, 2025 Notes CHART REVIEW Pt admitted on a 5150 Hold for DTS. per hold Pt is experiencing SI with plan to stab herself in the abdomen with a knife. Patient was discharged from this unit on 04/30/25 and came back to the ED the next day citing SI with plan. ASSESSMENT The patient was interviewed in observation room. The patient was actively sitting in rec room engaging with peers. The patient endorses "I can't stay in this place." The patient endorses she refused her Zyprexa last night and she feels the Zyprexa is causing her increased tremors and floaties in her eyes. The patient was informed that is Zyprexa has shown improvement with her depression, psychosis, and anxiety. The patient was informed yesterday she was able to sit during session with out thrashing all over chair. During session today patient was thrashing all over the chair ringing of the hands. Per staff report patient was up during the night and received PRN trazodone to assist with insomnia. The patient was going on and on because she could not remember that the provider, and her friend Ash met in person on Saturday. "I can't believe I am losing my memory I really can not believe I can not remember that we all met on Saturday." The patient is going back and forth what medication she wants to try, discontinue and/or start. The patient insists on starting Latuda. "The other providers said I should be on Latuda and not Zyprexa." The patient was indecision, and ruminating on negative thoughts. Denies SI. Denies HI. Denies AVH. The patient is stable no acute distress noted. The patient presents as anxious, irritable, and agitated during session. The patient was all over the place Per staff report patient is medication non-compliant. Long extensive discussion regarding the patient continuing Zyprexa due to showing improvement but patient declines. Per staff report no abnormal behaviors. Will continue daily assessment and adjusting treatment as needed. Closely monitor behavior and response to medication during hospitalization. Speech: Other (CIRCUMSTANTIAL) Eye Contact: Normal Motor Activity: Normal Affect: Labile Mood: Anxious, Irritable Orientation Impairment: None Memory Impairment: None Attention: Normal Hallucinations: None Other: None Suicidality: None Homicidality: None Delusions: None Behavior: Agitated Insight: Poor Judgment: Poor Treatment We will decrease Zyprexa will while initiating Latuda and titrating to a stable dose. REMERON 30MG PO QHS-HELP WITH ANXIETY AND DEPRESSION LEVOTHYROXINE 50 MCG P.O. DAILY TRAZODONE 50 MG P.O. PRN SLEEP HSMR X1 HYDROXYZINE 50 MG P.O. Q.6 PRN MELATONIN 6 MG P.O. Q.H.S.-per patient's request Decrease ZYPREXA 5 MG P.O. Q.H.S. LAMOTRIGINE 50MG PO DAILY CLONIDINE 0.1 MG P.O. B.I.D. PRN-ANXIETY LATUDA 40 MG P.O. WITH SUPPER 5270 HOLD-GD- Patient is unable to formulate a plan to provide food, clothing, and snf. We are still titrating medications to an effective dose while maintaining a therapeutic environment to prevent decompensation and readmission. Monitoring by Staff, Milieu, Group, and Individual counseling as needed -- According to the [place] Suicide Assessment the above named patient is on Q15 MINUTE CHECKS. Total time spent 45 minutes on REVIEW OF Clinical notes [X ] RN notes [X] PCT documentation [X] SW notes Labs [ X] Medications [X] Care trends/care activity [X] Vitals [X] DISCUSSION WITH assembly worker [X] Staff SW Treatment Team [X] Voice recognition software may have been used to dictate this note. There may be errors due to use of such software. Reporting of serious errors is appreciated. Discharge UNSURE AT THIS TIME. DISCHARGE HOME ONCE STABLE. CODING VISIT-PSYCHIATRY Date of Service: May 25, 2025 Billing Provider: DAVID NGUYEN APRN Psych Common Visit Codes: [id number] INP/OBS CARE(Mod) Problem Qualifiers (1) Major depressive disorder, recurrent: DAVID NGUYEN [employer] May 25, 2025 16:56
[2025-05-25 19:00] VITALS: RESP 16; O2SAT 97
[2025-05-25 20:00] VITALS: BP 119/62; PULSE 81; RESP 16; TEMP 97.3; O2SAT 97
[2025-05-25] MEDS: OLANZAPINE 5 MG TABLET PO SCH (21:05)
[2025-05-26 07:00] VITALS: BP 132/98; PULSE 90; RESP 16; TEMP 97.8; O2SAT 97
[2025-05-26] MEDS: OLANZapine 5mg rapidly disint. tablet PO ONE (12:02)
--- NOTE | 2025-05-26 12:02 | PROGRESS NOTE ---
Progress Note Dictate Providers to CC ~ Central Line/PICC still needed: N\\A Antibiotic Ordered?: No MRSA Education MRSA Education Provided to pt: No Objective Vitals Vital Signs Date Time Temp Pulse Resp B/P (MAP) Pulse Ox O2 Delivery O2 Flow Rate FiO2 05/26/25 07:00 97.8 90 16 132/98 (109) 97 Room Air Problem\\Assessment\\Plan Problems/Diagnosis: (1) Major depressive disorder, recurrent (2) Suicidal ideation (3) Personality disorder Psychiatrist's Progress Note Date of Service: May 26, 2025 Notes Pt admitted on a 5150 Hold for DTS. per hold Pt is experiencing SI with plan to stab herself in the abdomen with a knife. Patient was discharged from this unit on 04/30/25 and came back to the ED the next day citing SI with plan. ASSESSMENT The patient was interviewed in observation room. The patient was actively sitting edge of bed. The patient endorses "Well I had a melt down this morning." The patient was perseverating about losing too much weight over the months, needing to see the eye doctor and being discharged home but did not have a clear plan how she will continue to care for herself at home. Denies SI. Denies HI. Denies AVH. The patient is stable no acute distress noted. The patient presents as anxious, irritable, and agitated during session. The patient was hyperfixated on yesterdays session. Per staff report patient was medication compliant. Per staff report patient was using profanity, yelling, and inappropriate behavior towards staff. Will continue daily assessment and adjusting treatment as needed. Closely monitor behavior and response to medication during hospitalization. Speech: Tangential, Pressured, Other (CIRCUMSTANTIAL) Eye Contact: Intense Motor Activity: Restless Affect: Full Mood: Anxious, Irritable Orientation Impairment: None Memory Impairment: None Hallucinations: None Other: None Suicidality: None Homicidality: None Delusions: None Behavior: Agitated Insight: Poor Judgment: Poor Treatment REMERON 30MG PO QHS-HELP WITH ANXIETY AND DEPRESSION LEVOTHYROXINE 50 MCG P.O. DAILY TRAZODONE 50 MG P.O. PRN SLEEP HSMR X1 HYDROXYZINE 50 MG P.O. Q.6 PRN MELATONIN 6 MG P.O. Q.H.S.-per patient's request Increase ZYPREXA 10 MG P.O. Q.H.S. LAMOTRIGINE 50MG PO DAILY CLONIDINE 0.1 MG P.O. B.I.D. PRN-ANXIETY Discontinue LATUDA 40 MG P.O. WITH SUPPER 5270 HOLD-GD- Patient is unable to formulate a plan to provide food, clothing, and detention. We are still titrating medications to an effective dose while maintaining a therapeutic environment to prevent decompensation and readmission. Monitoring by Staff, Milieu, Group, and Individual counseling as needed -- According to the [place] Suicide Assessment the above named patient is on Q15 MINUTE CHECKS. Total time spent 60 minutes on REVIEW OF Clinical notes [X ] RN notes [X] PCT documentation [X] SW notes Labs [ X] Medications [X] Care trends/care activity [X] Vitals [X] DISCUSSION WITH replenishment associate [X] Staff SW Treatment Team [X] Voice recognition software may have been used to dictate this note. There may be errors due to use of such software. Reporting of serious errors is appreciated. Discharge UNSURE AT THIS TIME. DISCHARGE HOME ONCE STABLE. CODING VISIT-PSYCHIATRY Date of Service: May 26, 2025 Billing Provider: DAVID NGUYEN APRN Psych Common Visit Codes: [id number] INP/OBS CARE(Mod) Problem Qualifiers (1) Major depressive disorder, recurrent: DAVID NGUYEN APRN May 26, 2025 12:02
[2025-05-26 19:00] VITALS: RESP 16; O2SAT 97
--- NOTE | 2025-05-26 19:24 | PROGRESS NOTE ---
Daily Progress Note Providers to CC ~ Antibiotic Timeout Antibiotic Ordered?: No Subjective patient was seen in mental health unit, she was concerned about constipation and upper belly discomfort. Last bowel movement two days back, no other current issues looks comfortable ambulating well Objective Vital Signs Date Time Temp Pulse Resp B/P (MAP) Pulse Ox O2 Delivery O2 Flow Rate FiO2 05/26/25 07:00 97.8 90 16 132/98 (109) 97 Room Air General-patient not in any acute distress, alert awake age-appropriate, looks comfortable HEENT-atraumatic normocephalic, neck supple without elevated JVD, No lymphadenopathy bilaterally. Eyes-no icterus or pallor seen in eyes Chest-clear to auscultation bilaterally, breathing nonlabored no tachypnea, no wheezing, no crepitation, no crackles. Heart-S1-S2 normal, regular heart rate no murmur Abdomen bowel sounds positive on auscultation, soft nondistended nontender no guarding, no rigidity Skin no active skin rash Neurology-grossly intact, nonfocal alert awake cooperated during physical examination Extremity- no pedal edema able to move all 4 extremities, ambulate Problem\Assessment\Plan 74 years old female with a history of insomnia, anxiety, depression, palpitations, hypothyroidism, has been admitted at [facility] for suicidal ideation. 1. Suicide ideation: Patient has a history of anxiety and depression. Continue treat per psych recommendations. 2. Hypothyroidism: Continue levothyroxine 3. Severe protein calorie malnutrition with a BMI of 17.2. Continue ensure t.i.d. 4. Dry eyes : Eye drops 5. Chronic back pain : Non narcotic medications as needed 6 MiraLax ordered for constipation today No acute medical complaints or concerns The hospitalist team will continue to follow the patient. Date of Service: May 26, 2025 Billing Provider: REBECCA BELL MD Common Visit Codes: [id number] INP/OBS CARE(LOW) REBECCA BELL MD May 26, 2025 19:24
[2025-05-26] MEDS: polyethylene glycol 3350 17gm powd pack PO ONE (19:25)
[2025-05-26 20:00] VITALS: BP 138/66; PULSE 85; RESP 16; TEMP 98; O2SAT 97
[2025-05-27 07:00] VITALS: BP 116/70; PULSE 89; RESP 16; TEMP 97; O2SAT 96
--- NOTE | 2025-05-27 16:26 | PROGRESS NOTE ---
Progress Note Dictate Providers to CC ~ Central Line/PICC still needed: N\\A Antibiotic Ordered?: No MRSA Education MRSA Education Provided to pt: No Objective Vitals Vital Signs Date Time Temp Pulse Resp B/P (MAP) Pulse Ox O2 Delivery O2 Flow Rate FiO2 05/27/25 07:00 16 96 Room Air 05/27/25 07:00 97.0 89 116/70 (85) Problem\\Assessment\\Plan Problems/Diagnosis: (1) Major depressive disorder, recurrent (2) Suicidal ideation (3) Personality disorder Psychiatrist's Progress Note Date of Service: May 27, 2025 Notes Pt admitted on a 5150 Hold for DTS. per hold Pt is experiencing SI with plan to stab herself in the abdomen with a knife. Patient was discharged from this unit on 04/30/25 and came back to the ED the next day citing SI with plan. ASSESSMENT The patient was interviewed in observation room. The patient was actively sitting edge of bed. The patient endorses "My brain is foggy." The patient was informed that her being foggy could be contributed to the 2 dose of Zyprxa she received the prior day and also her taking her Remeron, hydroxyzine, trazodone, and Zyprexa all that the same time last night. 'i don't want to kill myself but yes, I do have those thoughts in the back of my head." Passive SI. Denies SI. Denies HI. Denies AVH. The patient is stable no acute distress noted. The patient presents as less anxious, less irritable, and less agitated during session. Per staff report patient was medication compliant. Per staff report no abnormal behaviors. Will continue daily assessment and adjusting treatment as needed. Closely monitor behavior and response to medication during hospitalization. Appearnace: Other Speech: Other (CIRCUMSTANTIAL) Eye Contact: Other (INTERMITTENT) Motor Activity: Normal Affect: Full Mood: Anxious, Irritable Orientation Impairment: None Memory Impairment: None Attention: Normal Hallucinations: None Other: None Suicidality: Ideation Homicidality: None Delusions: None Behavior: Cooperative Insight: Poor Judgment: Poor Treatment REMERON 30MG PO QHS-HELP WITH ANXIETY AND DEPRESSION LEVOTHYROXINE 50 MCG P.O. DAILY TRAZODONE 50 MG P.O. PRN SLEEP HSMR X1 HYDROXYZINE 50 MG P.O. Q.6 PRN MELATONIN 6 MG P.O. Q.H.S.-per patient's request Increase ZYPREXA 10 MG P.O. Q.H.S. LAMOTRIGINE 50MG PO DAILY CLONIDINE 0.1 MG P.O. B.I.D. PRN-ANXIETY Discontinue LATUDA 40 MG P.O. WITH SUPPER 5270 HOLD-GD- Patient is unable to formulate a plan to provide food, clothing, and usp. We are still titrating medications to an effective dose while maintaining a therapeutic environment to prevent decompensation and readmission. Monitoring by Staff, Milieu, Group, and Individual counseling as needed -- According to the [place] Suicide Assessment the above named patient is on Q15 MINUTE CHECKS. Total time spent 40 minutes on REVIEW OF Clinical notes [X ] RN notes [X] PCT documentation [X] SW notes Labs [ X] Medications [X] Care trends/care activity [X] Vitals [X] DISCUSSION WITH metalsmith apprentice [X] Staff SW Treatment Team [X] Voice recognition software may have been used to dictate this note. There may be errors due to use of such software. Reporting of serious errors is appreciated. Discharge UNSURE AT THIS TIME. DISCHARGE HOME ONCE STABLE. CODING VISIT-PSYCHIATRY Date of Service: May 27, 2025 Billing Provider: DAVID NGUYEN APRN Psych Common Visit Codes: [id number] INP/OBS CARE(Mod) Problem Qualifiers (1) Major depressive disorder, recurrent: DAVID NGUYEN APRN May 27, 2025 16:26
[2025-05-27 19:00] VITALS: RESP 16; O2SAT 98
[2025-05-27 20:00] VITALS: BP 97/50; PULSE 69; RESP 16; TEMP 98.7; O2SAT 98
[2025-05-27 22:10] VITALS: BP 110/57
[2025-05-28 07:00] VITALS: BP 129/74; PULSE 98; RESP 12; TEMP 97.5; O2SAT 96
[2025-05-28] MEDS: polyethylene glycol 3350 17gm powd pack PO ONE (12:13)
--- NOTE | 2025-05-28 14:52 | PROGRESS NOTE ---
Progress Note Dictate Providers to CC ~ Central Line/PICC still needed: N\\A Antibiotic Ordered?: No MRSA Education MRSA Education Provided to pt: No Objective Vitals Vital Signs Date Time Temp Pulse Resp B/P (MAP) Pulse Ox O2 Delivery O2 Flow Rate FiO2 05/28/25 07:00 12 96 Room Air 05/28/25 07:00 97.5 98 129/74 (92) Problem\\Assessment\\Plan Problems/Diagnosis: (1) Major depressive disorder, recurrent (2) Suicidal ideation (3) Personality disorder Psychiatrist's Progress Note Date of Service: May 28, 2025 Notes Pt admitted on a 5150 Hold for DTS. per hold Pt is experiencing SI with plan to stab herself in the abdomen with a knife. Patient was discharged from this unit on 04/30/25 and came back to the ED the next day citing SI with plan. ASSESSMENT The patient was interviewed in observation room with RN present. The patient was actively ambulating in hallway eating a bag of chips. The patient endorses "I am not good." The patient went on and on about the mediations affecting her memory and thinks they are not helping.""I been forcing myself to sleep." When asked why are you forcing yourself to sleep the patient endorses "because there is nothing to do and I rather be home." "I need to be out of here paying my bills and stuff like that, I can't do those things in here." "I just don't want to be here." When asked if you do not want to be here on earth or what does that mean when you say you do not want to be here. "I don't want to be in here, I could be out dog sitting, making some money." SI. Denies HI. Denies AVH. The patient is stable no acute distress noted. The patient presents as anxious, irritable, and agitated during session. Despite the patient endorsing anxiety it is not congruent with her affect. The was informed that she has shown improvement since admission. The patient was encouraged to continue the current medication regimen inpatient and at discharge. The patient laughed and joked with the this provider and RN about certain subjects. Per staff report patient was medication compliant. Per staff report patient was using profanity, yelling, and inappropriate behavior towards staff. Will continue daily assessment and adjusting treatment as needed. Closely monitor behavior and response to medication during hospitalization. Appearnace: Other Speech: Pressured, Other (CIRCUMSTANTIAL) Eye Contact: Normal Motor Activity: Normal Affect: Full Mood: Irritable Orientation Impairment: None Memory Impairment: None Attention: Normal Hallucinations: None Other: None Suicidality: Ideation Homicidality: None Delusions: None Behavior: Cooperative Insight: Poor Judgment: Poor Treatment Increase REMERON 45MG PO QHS-HELP WITH ANXIETY AND DEPRESSION LEVOTHYROXINE 50 MCG P.O. DAILY TRAZODONE 50 MG P.O. PRN SLEEP HSMR X1 HYDROXYZINE 50 MG P.O. Q.6 PRN MELATONIN 6 MG P.O. Q.H.S.-per patient's request Increase ZYPREXA 10 MG P.O. Q.H.S. LAMOTRIGINE 50MG PO DAILY CLONIDINE 0.1 MG P.O. B.I.D. PRN-ANXIETY CLONIDINE 0.1 MG P.O. QAM-ANXIETY 5270 HOLD-GD- Patient is unable to formulate a plan to provide food, clothing, and mcfp. We are still titrating medications to an effective dose while maintaining a therapeutic environment to prevent decompensation and readmission. Monitoring by Staff, Milieu, Group, and Individual counseling as needed -- According to the [place] Suicide Assessment the above named patient is on Q15 M INUTE CHECKS. Total time spent 55 minutes on REVIEW OF Clinical notes [X ] RN notes [X] PCT documentation [X] SW notes Labs [ X] Medications [X] Care trends/care activity [X] Vitals [X] DISCUSSION WITH angle furnaceman [X] Staff SW Treatment Team [X] Voice recognition software may have been used to dictate this note. There may be errors due to use of such software. Reporting of serious errors is appreciated. Discharge UNSURE AT THIS TIME. DISCHARGE HOME ONCE STABLE. CODING VISIT-PSYCHIATRY Date of Service: May 28, 2025 Billing Provider: DAVID NGUYEN APRN Psych Common Visit Codes: [id number] INP/OBS CARE(Mod) Problem Qualifiers (1) Major depressive disorder, recurrent: DAVID NGUYEN APRN May 28, 2025 14:52
--- NOTE | 2025-05-28 16:41 | PROGRESS NOTE ---
Daily Progress Note Providers to CC ~ Antibiotic Timeout Antibiotic Ordered?: No Subjective patient was seen in mental health unit, she was still concerned about const ipation and belly discomfort. Last bowel movement , small and hard as per patient today . no other current issues looks comfortable ambulating well Objective Vital Signs Date Time Temp Pulse Resp B/P (MAP) Pulse Ox O2 Delivery O2 Flow Rate FiO2 05/28/25 07:00 12 96 Room Air 05/28/25 07:00 97.5 98 129/74 (92) General-patient not in any acute distress, alert awake age-appropriate, looks comfortable HEENT-atraumatic normocephalic, neck supple without elevated JVD, No lymphadenopathy bilaterally. Eyes-no icterus or pallor seen in eyes Chest-clear to auscultation bilaterally, breathing nonlabored no tachypnea, no wheezing, no crepitation, no crackles. Heart-S1-S2 normal, regular heart rate no murmur Abdomen bowel sounds positive on auscultation, soft nondistended nontender no guarding, no rigidity Skin no active skin rash Neurology-grossly intact, nonfocal alert awake cooperated during physical examination Extremity- no pedal edema able to move all 4 extremities, ambulate Problem\Assessment\Plan 74 years old female with a history of insomnia, anxiety, depression, palpitations, hypothyroidism, has been admitted at [facility] for suicidal ideation. 1. Suicide ideation: Patient has a history of anxiety and depression. Continue treat per psych recommendations. 2. Hypothyroidism: Continue levothyroxine 3. Severe protein calorie malnutrition with a BMI of 17.2. Continue ensure t.i.d. 4. Dry eyes : Eye drops 5. Chronic back pain : Non narcotic medications as needed 6 MiraLax ordered for constipation No acute medical complaints or concerns The hospitalist team will continue to follow the patient. Date of Service: May 28, 2025 Billing Provider: REBECCA BELL MD Common Visit Codes: [id number] INP/OBS CARE(LOW) REBECCA BELL MD May 28, 2025 16:41
[2025-05-28 19:00] VITALS: RESP 16; O2SAT 96
[2025-05-28 19:24] VITALS: BP 107/55; PULSE 75; RESP 16; TEMP 97.4; O2SAT 96
[2025-05-28 20:19] VITALS: BP 142/69; PULSE 82
[2025-05-29 07:00] VITALS: RESP 16; O2SAT 97
[2025-05-29 08:00] VITALS: BP 127/73; PULSE 89; RESP 16; TEMP 97; O2SAT 97
[2025-05-29 20:00] VITALS: BP 98/63; PULSE 82; RESP 16; TEMP 98; O2SAT 100
[2025-05-29] MEDS: polyethylene glycol 3350 17gm powd pack PO SCH (20:08)
[2025-05-30 07:00] VITALS: RESP 16; O2SAT 98
[2025-05-30 08:50] VITALS: BP 117/78; PULSE 84; RESP 16; TEMP 97.4; O2SAT 98
--- NOTE | 2025-05-30 10:15 | PROGRESS NOTE ---
Daily Progress Note Providers to CC ~ no new complaint today, resting comfortably in the bed Central Line/PICC still needed: No [place]-Non Protocol [place] Indications Met/Not Met: F/C Indications Not Met Antibiotic Timeout Antibiotic Ordered?: No MRSA Education MRSA Education Provided to pt: No Subjective As above Objective Vital signs, stable ,afebrile. Pulse Oximetry reflects adequate oxygenation. General: well developed, well nourished. Awake , alert, and oriented x4, resting comfortably in the bed, in no acute distress . Skin: Warm, dry, no pallor, no rash or petechiae. HEENT: Atraumatic, normocephalic, EOMI, anicteric sclera B; pink conjunctiva; PERRLA, normal oropharynx, moist oral and nasal mucosa. Tympanic membrane , nose , throat clear. Neck: Trachea midline. Supple, full range of motion, no JVD, bruit , hepatojugular reflex , lymphadenopathy or masses, or other lesions Cardiac: Regular rhythm, regular rate no murmurs, rubs, or gallops. Normal S1 and S2, no S3 noticed. PMI is normal. Respiratory: Equal breath sounds bilaterally, no tachypnea; lungs clear to auscultation bilaterally, no wheezing ,rub or rales, or crackles. Chest wall is symmetric and without deformity. No signs of trauma. Chest wall is nontender. No signs of respiratory distress. Resonance is normal upon percussion sally aterally. Gastrointestinal: Abdomen symmetric, non-distended, soft, non-tender, normal bowel sounds x4 quadrant, normoactive, no hepatosplenomegaly , no masses , no bruit, no flank pain bilaterally. No voluntary guarding, rebound, or rigidity. No tenderness to percussion. No pulsatile masses. Equal femoral pulses. No Pittman's sign or McBurney point tenderness. Back; no CVA tenderness bilaterally, no deformities. Neck and back are without deformity as well. No tenderness noted on palpation of the spinous processes. Spinous processes are midline. Cervical, thoracic, and lumbar paraspinal muscles are not tender and are without spasm Musculoskeletal: Extremities, normal range of motion, non-tender, muscle strength 5/5 x 4. Negative Homans signs bilaterally on lower extremity. Distal pulses full symmetrical, no clubbing, cyanosis , edema. Neurological: Speech is clear, alert, and oriented x 4. No motor or sensory deficit, deep tendon reflexes normal, cerebellar intact. Cranial nerves II-XII intact. Psych: Alert and or appropriate, normal affect. Vascular: Good distal pulses, which are equal x4; capillary refill less than 2 seconds. Lymphatic, no lymphadenopathy. Problem\Assessment\Plan Assessment/plan 74 years old female with a history of insomnia, anxiety, depression, palpitations, hypothyroidism, has been admitted at [facility] for suicidal ideation. 1. Suicide ideation: Patient has a history of anxiety and depression. Continue treat per psych recommendations. 2. Hypothyroidism: Continue levothyroxine 3. Severe protein calorie malnutrition with a BMI of 17.2. Continue ensure t.i.d. , Nutrition consult 4. Dry eyes : Eye drops 5. Chronic back pain : Non narcotic medications as needed 6 MiraLax ordered for constipation The hospitalist team will continue to follow the patient. Sepsis Screening Reassessment Date: May 30, 2025 Date of Service: May 30, 2025 Billing Provider: KAYLAN PRABHAKAR MD Common Visit Codes: [id number] INP/OBS CARE(LOW) KAYLAN PRABHAKAR MD May 30, 2025 10:15
--- NOTE | 2025-05-30 14:05 | PROGRESS NOTE ---
Progress Note Dictate Providers to CC ~ Central Line/PICC still needed: N\\A Antibiotic Ordered?: No MRSA Education MRSA Education Provided to pt: No Objective Vitals Vital Signs Date Time Temp Pulse Resp B/P (MAP) Pulse Ox O2 Delivery O2 Flow Rate FiO2 05/30/25 08:50 97.4 84 16 117/78 (91) 98 Room Air Problem\\Assessment\\Plan Problems/Diagnosis: (1) Major depressive disorder, recurrent (2) Suicidal ideation (3) Personality disorder Psychiatrist's Progress Note Date of Service: May 29, 2025 Notes Pt admitted on a 5150 Hold for DTS. per hold Pt is experiencing SI with plan to stab herself in the abdomen with a knife. Patient was discharged from this unit on 04/30/25 and came back to the ED the next day citing SI with plan. ASSESSMENT The patient was interviewed in observation room with RN present. The patient was actively ambulating in hallway talking on telephone. The patient endorses "I am depressed because I just want to be home, outside, see my dog, and talk with my friends." "There is nothing to do here I can only walk up and down the halls so many times." "I am used to being at the gym working out hanging with my friends or walking my dog." "It is a hard pill to swallow knowing you have memory issues." The patient was informed of certain tasks to do to keep memory intact, doing crossword puzzles, reading, etc. Denies SI. Denies HI. Denies AVH. The patient endorses adequate sleep. The patient is stable no acute distress noted. The patient presents as less anxious, less irritable, and agitated during session. The was informed that she continues to shown improvement. Per staff report patient was medication compliant. Per staff report patient was using profanity, yelling, and inappropriate behavior towards staff. Will continue daily assessment and adjusting treatment as needed. Closely monitor behavior and response to medication during hospitalization. Results Of any Diagn. Testing REMERON 45MG PO QHS-HELP WITH ANXIETY AND DEPRESSION LEVOTHYROXINE 50 MCG P.O. DAILY TRAZODONE 50 MG P.O. PRN SLEEP HSMR X1 HYDROXYZINE 50 MG P.O. Q.6 PRN MELATONIN 6 MG P.O. Q.H.S.-per patient's request Increase ZYPREXA 10 MG P.O. Q.H.S. LAMOTRIGINE 50MG PO DAILY CLONIDINE 0.1 MG P.O. B.I.D. PRN-ANXIETY CLONIDINE 0.1 MG P.O. QAM-ANXIETY 5270 HOLD-GD- Patient is unable to formulate a plan to provide food, clothing, and nursing home. We are still titrating medications to an effective dose while maintaining a therapeutic environment to prevent decompensation and readmission. Monitoring by Staff, Milieu, Group, and Individual counseling as needed -- According to the [place] Suicide Assessment the above named patient is on Q15 MINUTE CHECKS. Total time spent 55 minutes on REVIEW OF Clinical notes [X ] RN notes [X] PCT documentation [X] SW notes Labs [ X] Medications [X] Care trends/care activity [X] Vitals [X] DISCUSSION WITH slackman [X] Staff SW Treatment Team [X] Voice recognition software may have been used to dictate this note. There may be errors due to use of such software. Reporting of serious errors is appreciated. Appearnace: Other Speech: Other (CIRCUMSTANTIAL) Eye Contact: Normal Motor Activity: Normal Affect: Constricted Mood: Depressed Orientation Impairment: None Memory Impairment: None Attention: Normal Hallucinations: None Other: None Suicidality: None Homicidality: None Delusions: None Behavior: Cooperative Insight: Poor Judgment: Poor Treatment REMERON 45MG PO QHS-HELP WITH ANXIETY AND DEPRESSION LEVOTHYROXINE 50 MCG P.O. DAILY TRAZODONE 50 MG P.O. PRN SLEEP HSMR X1 HYDROXYZINE 50 MG P.O. Q.6 PRN MELATONIN 6 MG P.O. Q.H.S.-per patient's request ZYPREXA 10 MG P.O. Q.H.S. LAMOTRIGINE 50MG PO DAILY CLONIDINE 0.1 MG P.O. B.I.D. PRN-ANXIETY CLONIDINE 0.1 MG P.O. QAM-ANXIETY 5270 HOLD-GD- Patient is unable to formulate a plan to provide food, clothing, and nursing home. We are still titrating medications to an effective dose while maintaining a therapeutic environment to prevent decompensation and readmission. Monitoring by Staff, Milieu, Group, and Individual counseling as needed -- According to the [place] Suicide Assessment the above named patient is on Q15 MINUTE CHECKS. Total time spent 55 minutes on REVIEW OF Clinical notes [X ] RN notes [X] PCT documentation [X] SW notes Labs [ X] Medications [X] Care trends/care activity [X] Vitals [X] DISCUSSION WITH slackman [X] Staff SW Treatment Team [X] Voice recognition software may have been used to dictate this note. There may be errors due to use of such software. Reporting of serious errors is a ppreciated. Discharge UNSURE AT THIS TIME. DISCHARGE HOME ONCE STABLE. CODING VISIT-PSYCHIATRY Date of Service: May 29, 2025 Billing Provider: DAVID NGUYEN APRN Psych Common Visit Codes: [id number] INP/OBS CARE(Mod) Problem Qualifiers (1) Major depressive disorder, recurrent: DAVID NGUYEN APRN May 30, 2025 14:05
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
[2025-05-30 19:00] VITALS: RESP 16; O2SAT 99
[2025-05-30 20:00] VITALS: BP 119/75; PULSE 85; RESP 16; TEMP 96.9; O2SAT 99
[2025-05-31 07:00] VITALS: RESP 14; O2SAT 99
[2025-05-31 08:00] VITALS: BP 126/71; PULSE 90; RESP 14; TEMP 98.6; O2SAT 99
--- NOTE | 2025-05-31 12:02 | PROGRESS NOTE ---
Progress Note Dictate Providers to CC ~ Objective Vitals Vital Signs Date Time Temp Pulse Resp B/P (MAP) Pulse Ox O2 Delivery O2 Flow Rate FiO2 05/31/25 08:00 98.6 90 14 126/71 (89) 99 Room Air 05/31/25 07:00 0.0 Problem\Assessment\Plan Problems/Diagnosis: (1) Major depressive disorder, recurrent (2) Suicidal ideation (3) Personality disorder Psychiatrist's Progress Note Date of Service: May 31, 2025 CODING VISIT-PSYCHIATRY Date of Service: May 31, 2025 Billing Provider: DAVID NGUYEN APRN Psych Common Visit Codes: [id number] INP/OBS CARE(Mod) Problem Qualifiers (1) Major depressive disorder, recurrent: DAVID NGUYEN APRN May 31, 2025 12:02
--- NOTE | 2025-05-31 12:28 | PROGRESS NOTE ---
Progress Note Dictate Providers to CC ~ Central Line/PICC still needed: N\\A Antibiotic Ordered?: No MRSA Education MRSA Education Provided to pt: No Objective Vitals Vital Signs Date Time Temp Pulse Resp B/P (MAP) Pulse Ox O2 Delivery O2 Flow Rate FiO2 05/31/25 08:00 98.6 90 14 126/71 (89) 99 Room Air 05/31/25 07:00 0.0 Problem\\Assessment\\Plan Problems/Diagnosis: (1) Major depressive disorder, recurrent (2) Suicidal ideation (3) Personality disorder Psychiatrist's Progress Note Date of Service: May 31, 2025 Notes CHART REVIEW Pt admitted on a 5150 Hold for DTS. per hold Pt is experiencing SI with plan to stab herself in the abdomen with a knife. Patient was discharged from this unit on 04/30/25 and came back to the ED the next day citing SI with plan. ASSESSMENT The patient was interviewed in observation room with RN present. The patient was ambulating in hallway with headphones on. The patient endorses "I am not great, I tell you that." Then the patient goes on to say she feels the Remeron is not making her feel good but was unable to endorse exactly how the Remeron was affecting her. "Well I know you increased it." "The Lamictal made me dizzy this morning." The patient was informed that she did not take Lamictal this morning. "Maybe it was the blood pressure pill." rechecked BP 120/64. Once the patient's blood pressure was rechecked and she was informed that her blood pressure was within normal limits the patient endorses "maybe I am over thi nking." Towards the middle of the conversation the patient was able to laugh, joke and even danced little. Denies SI. Denies HI. Denies AVH. The patient endorses adequate sleep and food intake. The patient is stable no acute distress noted. The patient presents as cooperative, calm, and engaged during session. The patient was more positive and hopeful today. Per staff report no abnormal behaviors. Per staff report patient was medication compliant. Will continue daily assessment and adjusting treatment as needed. Closely monitor behavior and response to medication during hospitalization. Appearnace: Other Speech: Normal Eye Contact: Normal Motor Activity: Normal Affect: Full Mood: Euthymic Orientation Impairment: None Memory Impairment: None Attention: Normal Hallucinations: None Other: None Suicidality: None Homicidality: None Delusions: None Behavior: Cooperative Insight: Fair, Poor Judgment: Fair Treatment Decrease REMERON 30MG PO QHS-HELP WITH ANXIETY AND DEPRESSION LEVOTHYROXINE 50 MCG P.O. DAILY TRAZODONE 50 MG P.O. PRN SLEEP HSMR X1 HYDROXYZINE 50 MG P.O. Q.6 PRN ZYPREXA 10 MG P.O. Q.H.S. Change to LAMOTRIGINE 50MG PO QHS CLONIDINE 0.1 MG P.O. B.I.D. PRN-ANXIETY CLONIDINE 0.1 MG P.O. QAM-ANXIETY 5270 HOLD-GD- Patient is unable to formulate a plan to provide food, clothing, and jail. We are still titrating medications to an effective dose while maintaining a therapeutic environment to prevent decompensation and readmission. Monitoring by Staff, Milieu, Group, and Individual counseling as needed -- According to the [place] Suicide Assessment the above named patient is on Q15 MINUTE CHECKS. Total time spent 45 minutes on REVIEW OF Clinical notes [X ] RN notes [X] PCT documentation [X] SW notes Labs [ X] Medications [X] Care trends/care activity [X] Vitals [X] DISCUSSION WITH telephone interceptor operator [X] Staff SW Treatment Team [X] Voice recognition software may have been used to dictate this note. There may be errors due to use of such software. Reporting of serious errors is appreciated. Discharge UNSURE AT THIS TIME. DISCHARGE HOME ONCE STABLE. CODING VISIT-PSYCHIATRY Date of Service: May 31, 2025 Billing Provider: DAVID NGUYEN APRN Psych Common Visit Codes: [id number] INP/OBS CARE(Mod) Problem Qualifiers (1) Major depressive disorder, recurrent: DAVID NGUYEN APRN May 31, 2025 12:28
[2025-05-31 18:57] VITALS: RESP 14; O2SAT 99
[2025-05-31 19:50] VITALS: BP 108/85; PULSE 74; RESP 16; TEMP 97.2; O2SAT 97
[2025-06-01 07:00] VITALS: RESP 16; O2SAT 99
[2025-06-01 08:00] VITALS: BP 130/69; PULSE 90; RESP 16; TEMP 99; O2SAT 99
--- NOTE | 2025-06-01 14:25 | PROGRESS NOTE ---
Progress Note Dictate Providers to CC ~ Central Line/PICC still needed: N\\A Antibiotic Ordered?: No MRSA Education MRSA Education Provided to pt: No Objective Vitals Vital Signs Date Time Temp Pulse Resp B/P (MAP) Pulse Ox O2 Delivery O2 Flow Rate FiO2 06/01/25 08:00 99.0 90 16 130/69 (89) 99 Room Air 05/31/25 18:57 0.0 Problem\\Assessment\\Plan Problems/Diagnosis: (1) Major depressive disorder, recurrent (2) Suicidal ideation (3) Personality disorder Psychiatrist's Progress Note Date of Service: Jun 01, 2025 Notes CHART REVIEW Pt admitted on a 5150 Hold for DTS. per hold Pt is experiencing SI with plan to stab herself in the abdomen with a knife. Patient was discharged from this unit on 04/30/25 and came back to the ED the next day citing SI with plan. ASSESSMENT The patient was interviewed in observation room with RN present. The patient was ambulating in hallway with headphones on. The patient endorses "I am not good." "Well I took a bunch of pills last night and woke up foggy this morning." "I slept really good last night tho." When asked what does "Foggy" mean the patient was unable to explain what she meant by "woke up foggy." The patient holds here head down and endorses "My memory." The patient is focused on her memory loss and how her friends memory is still intact. The patient was informed memory loss a part of aging. The patient was encouraged to participate in activities that engage your brain like playing games, learning new things, and staying socially active. Denies SI. Denies HI. Denies AVH. The patient endorses adequate sleep and food intake. The patient is stable no acute distress noted. The patient presents as irritable, agitated (about her memory loss), and engaged during session. Per staff report patient was aggressive with staff this AM. Per staff report patient was medication compliant. Will continue daily assessment and adjusting treatment as needed. Closely monitor behavior and response to medication during hospitalization. I spoke with Isak He, the patients mental health provider at [facility] with patient's consent. Isak and I was able to come up with a medication regimen for Jhony and she consented. When Patricia in his ready for discharge the plan is to discharge her on a Saturday so that she can go see Isak the same day of discharge. Appearnace: Other Speech: Other (CIRCUMSTANTIAL) Eye Contact: Normal Motor Activity: Normal Affect: Labile Mood: Anxious, Irritable Orientation Impairment: None Memory Impairment: None Attention: Normal Hallucinations: None Other: None Suicidality: None Homicidality: None Delusions: None Behavior: Agitated Insight: Poor Judgment: Fair, Poor Treatment We will check TSH level in AM to make sure this is not contributing to her anxiety. May add Ativan to help with anxiety. REMERON 30MG PO QHS-HELP WITH ANXIETY AND DEPRESSION LEVOTHYROXINE 50 MCG P.O. DAILY TRAZODONE 50 MG P.O. PRN SLEEP HSMR X1 HYDROXYZINE 50 MG P.O. Q.6 PRN Decrease ZYPREXA 5 MG P.O. Q.H.S. Discontinued LAMOTRIGINE 50MG PO QHS Discontinued CLONIDINE 0.1 MG P.O. B.I.D. PRN-ANXIETY Discontinue CLONIDINE 0.1 MG P.O. QAM-ANXIETY Initiate LITHIUM 150 MG P.O. Q.H.S. 5270 HOLD-GD- Patient is unable to formulate a plan to provide food, clothing, and half-way. We are still titrating medications to an effective dose while maintaining a therapeutic environment to prevent decompensation and readmission. Monitoring by Staff, Milieu, Group, and Individual counseling as needed -- According to the [place] Suicide Assessment the above named patient is on Q15 MINUTE CHECKS. Total time spent 60 minutes on REVIEW OF Clinical notes [X ] RN notes [X] PCT documentation [X] SW notes Labs [ X] Medications [X] Care trends/care activity [X] Vitals [X] DISCUSSION WITH chief security officer [X] Staff SW Treatment Team [X] Voice recognition software may have been used to dictate this note. There may be errors due to use of such software. Reporting of serious errors is appreciated. Discharge UNSURE AT THIS TIME. DISCHARGE HOME ONCE STABLE. CODING VISIT-PSYCHIATRY Date of Service: Jun 01, 2025 Billing Provider: DAVID NGUYEN APRN Psych Common Visit Codes: [id number] INP/OBS CARE(Mod) Problem Qualifiers (1) Major depressive disorder, recurrent: DAVID NGUYEN APRN Jun 01, 2025 14:25
[2025-06-01 19:00] VITALS: RESP 16; O2SAT 98
--- NOTE | 2025-06-01 19:24 | PROGRESS NOTE ---
Daily Progress Note Providers to CC ~ Antibiotic Timeout Antibiotic Ordered?: No Subjective patient was seen in mental health unit, no other current issues looks comfo rtable ambulating well Objective Vital Signs Date Time Temp Pulse Resp B/P (MAP) Pulse Ox O2 Delivery O2 Flow Rate FiO2 06/01/25 08:00 99.0 90 16 130/69 (89) 99 Room Air 05/31/25 18:57 0.0 General-patient not in any acute distress, alert awake age-appropriate, looks comfortable HEENT-atraumatic normocephalic, neck supple without elevated JVD, No lymphadenopathy bilaterally. Eyes-no icterus or pallor seen in eyes Chest-clear to auscultation bilaterally, breathing nonlabored no tachypnea, no wheezing, no crepitation, no crackles. Heart-S1-S2 normal, regular heart rate no murmur Abdomen bowel sounds positive on auscultation, soft nondistended nontender no guarding, no rigidity Skin no active skin rash Neurology-grossly intact, nonfocal alert awake cooperated during physical examination Extremity- no pedal edema able to move all 4 extremities, ambulate Problem\Assessment\Plan 74 years old female with a history of insomnia, anxiety, depression, palpitations, hypothyroidism, has been admitted at [facility] for suicidal ideation. 1. Suicide ideation: Patient has a history of anxiety and depression. Continue treat per psych recommendations. 2. Hypothyroidism: Continue levothyroxine 3. Severe protein calorie malnutrition with a BMI of 17.2. Continue ensure t.i.d. , Nutrition consult 4. Dry eyes : Eye drops 5. Chronic back pain : Non narcotic medications as needed 6 MiraLax ordered for constipation The hospitalist team will continue to follow the patient. Date of Service: Jun 01, 2025 Billing Provider: REBECCA BELL MD Common Visit Codes: [id number] INP/OBS CARE(LOW) REBECCA BELL MD Jun 01, 2025 19:24
[2025-06-01] MEDS: OLANZAPINE 5 MG TABLET PO SCH (19:41)
[2025-06-01 20:00] VITALS: BP 108/62; PULSE 81; RESP 16; TEMP 97; O2SAT 98
[2025-06-02 07:00] VITALS: RESP 18; O2SAT 97
[2025-06-02 08:00] VITALS: BP 128/75; PULSE 86; RESP 18; TEMP 97.8; O2SAT 97
[2025-06-02 09:07] LABS: MEAN PLATELET VOLUME 7.9 FL (7.4-10.4); RED CELL DISTRIBUTION WIDTH 13.8 % (11.5-14.5)
--- NOTE | 2025-06-02 12:55 | PROGRESS NOTE ---
Progress Note Dictate Providers to CC ~ Central Line/PICC still needed: N\\A Antibiotic Ordered?: No MRSA Education MRSA Education Provided to pt: No Objective Vitals Vital Signs Date Time Temp Pulse Resp B/P (MAP) Pulse Ox O2 Delivery O2 Flow Rate FiO2 06/02/25 08:00 97.8 86 18 128/75 (92) 97 Room Air 06/02/25 07:00 0.0 Lab Results: 06/02/25 0853 Problem\\Assessment\\Plan Problems/Diagnosis: (1) Major depressive disorder, recurrent (2) Suicidal ideation (3) Personality disorder Psychiatrist's Progress Note Date of Service: Jun 02, 2025 Notes CHART REVIEW Pt admitted on a 5150 Hold for DTS. per hold Pt is experiencing SI with plan to stab herself in the abdomen with a knife. Patient was discharged from this unit on 04/30/25 and came back to the ED the next day citing SI with plan. ASSESSMENT The patient was interviewed in observation room with RN present. The patient was actively making her bed. The patient endorses "Okay." The patient started endorsing concerns regarding medication changes. The patient was encouraged to continue current medication regimen and given medication time to become effective. The patient was informed her TSH level was 1.82. The patient was agreeable to initiating Ativan 0.5 mg p.o. b.i.d. for anxiety. Denies SI. Denies HI. Denies AVH. The patient endorses adequate sleep and food intake. The patient is stable no acute distress noted. The patient presents as a bit anxious, and engaged during session. The patient was encouraged to be more positive to the fact she has to take medications and if she stops taking her medications she will decompensate and need inpatient hospitalization for stabilization. Per staff report no abnormal behaviors. Per staff report patient was medication compliant. Will continue daily assessment and adjusting treatment as needed. Closely monitor behavior and response to medication during hospitalization. Results Of any Diagn. Testing REVIEW OF LABS TSH 1.82 Appearnace: Other Speech: Other (CIRCUMSTANTIAL) Eye Contact: Normal Motor Activity: Restless Affect: Full Mood: Anxious Orientation Impairment: None Memory Impairment: None Attention: Normal Hallucinations: None Other: None Suicidality: None Homicidality: None Delusions: None Behavior: Cooperative Insight: Fair, Poor Judgment: Fair, Poor Treatment REMERON 30MG PO QHS-HELP WITH ANXIETY AND DEPRESSION LEVOTHYROXINE 50 MCG P.O. DAILY TRAZODONE 50 MG P.O. PRN SLEEP HSMR X1 HYDROXYZINE 50 MG P.O. Q.6 PRN LITHIUM 150 MG P.O. Q.H.S. Initiate ATIVAN 0.5 MG P.O. B.I.D. 5270 HOLD-GD- Patient is unable to formulate a plan to provide food, clothing, and [facility]. We are still titrating medications to an effective dose while maintaining a therapeutic environment to prevent decompensation and readmission. Monitoring by Staff, Milieu, Group, and Individual counseling as needed -- According to the [place] Suicide Assessment the above named patient is on Q15 MINUTE CHECKS. Total time spent 50 minutes on REVIEW OF Clinical notes [X ] RN notes [X] PCT documentation [X] SW notes Labs [ X] Medications [X] Care trends/care activity [X] Vitals [X] DISCUSSION WITH mining and quarrying machinery repairer [X] Staff SW Treatment Team [X] Voice recognition software may have been used to dictate this note. There may be errors due to use of such software. Reporting of serious errors is appreciated. Discharge UNSURE AT THIS TIME. DISCHARGE HOME ONCE STABLE. CODING VISIT-PSYCHIATRY Date of Service: Jun 02, 2025 Billing Provider: DAVID NGUYEN APRN Psych Common Visit Codes: [id number] INP/OBS CARE(Mod) Problem Qualifiers (1) Major depressive disorder, recurrent: DAVID NGUYEN APRN Jun 02, 2025 12:55
[2025-06-02 19:00] VITALS: RESP 16; O2SAT 96
[2025-06-02 20:00] VITALS: BP 110/62; PULSE 78; RESP 16; TEMP 97.8; O2SAT 96
[2025-06-03 07:00] VITALS: RESP 14; O2SAT 96
[2025-06-03 08:00] VITALS: BP 119/70; PULSE 89; RESP 14; TEMP 97; O2SAT 96
--- NOTE | 2025-06-03 15:24 | PROGRESS NOTE ---
Progress Note Dictate Providers to CC ~ Central Line/PICC still needed: N\\A Antibiotic Ordered?: No MRSA Education MRSA Education Provided to pt: No Objective Vitals Vital Signs Date Time Temp Pulse Resp B/P (MAP) Pulse Ox O2 Delivery O2 Flow Rate FiO2 06/03/25 08:00 97.0 89 14 119/70 (86) 96 Room Air 06/03/25 07:00 0.0 Lab Results: 06/02/25 0853 Problem\\Assessment\\Plan Problems/Diagnosis: (1) Major depressive disorder, recurrent (2) Suicidal ideation (3) Personality disorder Psychiatrist's Progress Note Date of Service: Jun 03, 2025 Notes CHART REVIEW Pt admitted on a 5150 Hold for DTS. per hold Pt is experiencing SI with plan to stab herself in the abdomen with a knife. Patient was discharged from this unit on 04/30/25 and came back to the ED the next day citing SI with plan. ASSESSMENT The patient was interviewed in observation room with RN present. The patient was actively in relating in hallway. The patient endorses "The ativan did work, I do feel a difference. I felt like my old self in a way." The patient endorses no worsening mental health symptoms Denies SI. Denies HI. Denies AVH. The patient endorses adequate sleep and food intake. The patient is stable no acute distress noted. The patient presents as calm, cooperative, and engaged during session. The patient was pleasant and was receptive to medication suggestions. Per staff report the patient appeared more social and more outgoing. Per staff report patient was medication compliant. Will continue daily assessment and adjusting treatment as needed. Closely monitor behavior and response to medication during hospitalization. Results Of any Diagn. Testing REVIEW OF LABS TSH 1.82 Appearnace: Other Speech: Other (CIRCUMSTANTIAL) Eye Contact: Normal Motor Activity: Normal Affect: Full Mood: Euthymic Orientation Impairment: None Memory Impairment: None Attention: Normal Hallucinations: None Other: None Suicidality: None Homicidality: None Delusions: None Behavior: Cooperative Insight: Fair Judgment: Fair Treatment REMERON 30MG PO QHS-HELP WITH ANXIETY AND DEPRESSION LEVOTHYROXINE 50 MCG P.O. DAILY TRAZODONE 50 MG P.O. PRN SLEEP HSMR X1 HYDROXYZINE 50 MG P.O. Q.6 PRN LITHIUM 150 MG P.O. Q.H.S. ATIVAN 0.5 MG P.O. B.I.D. 5270 HOLD-GD- Patient is unable to formulate a plan to provide food, clothing, and fci. We are still titrating medications to an effective dose while maintaining a therapeutic environment to prevent decompensation and readmission. Monitoring by Staff, Milieu, Group, and Individual counseling as needed -- According to the [place] Suicide Assessment the above named patient is on Q15 MINUTE CHECKS. Total time spent 40 minutes on REVIEW OF Clinical notes [X ] RN notes [X] PCT documentation [X] SW notes Labs [ X] Medications [X] Care trends/care activity [X] Vitals [X] DISCUSSION WITH printed circuit photographer [X] Staff SW Treatment Team [X] Voice recognition software may have been used to dictate this note. There may be errors due to use of such software. Reporting of serious errors is appreciated. Discharge UNSURE AT THIS TIME. DISCHARGE HOME ONCE STABLE. CODING VISIT-PSYCHIATRY Date of Service: Jun 03, 2025 Billing Provider: DAVID NGUYEN APRN Psych Common Visit Codes: [id number] INP/OBS CARE(Mod) Problem Qualifiers (1) Major depressive disorder, recurrent: DAVID NGUYEN APRN Jun 03, 2025 15:24
[2025-06-03 19:00] VITALS: RESP 16; O2SAT 97
--- NOTE | 2025-06-03 19:35 | PROGRESS NOTE- Residence ---
Progress Note - Resident Providers to CC Resident Creating Document: ZANE RASCON, SERENITY ~ Antibiotic Timeout Antibiotic Ordered?: Yes Subjective Patient seen and examined at the bedside today. Denied any concerns or complaints at the moment. No acute overnight events were reported. Objective Vital Signs Date Time Temp Pulse Resp B/P (MAP) Pulse Ox O2 Delivery O2 Flow Rate FiO2 06/03/25 08:00 97.0 89 14 119/70 (86) 96 Room Air 06/03/25 07:00 0.0 Result Diagram: 06/02/25 0853 Head: Normocephalic with an atraumatic Eyes: Pupils- 3mm, reacting to light, conjunctiva- anicteric Nose and throat: No polyps, septum- normal, no mucosal ulcers Neck: Supple, no lymphadenopathy, no carotid bruit Respiratory: No use of accessory muscles of respiration, Bilateral normal vesiscular breath sounds heard. No wheeze, rhochi or creps Cardiac: S1-S2 heard, rythm regular, no gallop/murmur Abdomen: non distended, no tenderness, no organomegaly, bowel sounds - heard Extremities: no clubbing, no pedal edema, no deformities, peripheral pulses - 2+ Skin: warm and dry, no rash, no purpura Neuro: No focal deficit, gross cranial nerve exam - normal Assessment Assessment 74-year-old female with history of insomnia, anxiety/depression, palpitations secondary to anxiety, hypothyroidism, is admitted to the [facility] for suicidal ideation with plan. Plan Plan Insomnia Anxiety/depression Suicidal ideation with plan -management for Psychiatry Hypothyroidism -TSH 2.0 -continue levothyroxine 50 mcg once daily Significant weight loss Severe protein calorie malnutrition BMI of 17 .2 -patient states she is not eating well past few months due to anxiety -ensure enlive t.i.d. Chest pain-resolved -recent echo done showed ejection fraction of 70%, with RVSP of 35, mild TR -troponins negative -chest pain is thought to be 2/2 anxiety Mild hyponatremia - resolved Dry eyes On artificial tears Disposition: Hospitalist team we will follow up with the patient during the course of the hospital stay. Date of Service: Jun 03, 2025 Billing Provider: ARIANNA FONSECA MD Common Visit Codes: [id number] INP/OBS CARE(HIGH) ZANE RASCON, RES Jun 03, 2025 19:35 ARIANNA FONSECA MD Jun 17, 2025 21:07
[2025-06-03 20:00] VITALS: BP 109/60; PULSE 81; RESP 16; TEMP 97.8; O2SAT 97
[2025-06-04 07:00] VITALS: BP 101/69; PULSE 90; RESP 16; TEMP 98.7; O2SAT 97
--- NOTE | 2025-06-04 13:59 | PROGRESS NOTE ---
Progress Note Dictate Providers to CC ~ Central Line/PICC still needed: N\\A Antibiotic Ordered?: No MRSA Education MRSA Education Provided to pt: No Objective Vitals Vital Signs Date Time Temp Pulse Resp B/P (MAP) Pulse Ox O2 Delivery O2 Flow Rate FiO2 06/04/25 07:00 98.7 90 16 101/69 (80) 97 Room Air 06/03/25 07:00 0.0 Lab Results: 06/02/25 0853 Problem\\Assessment\\Plan Problems/Diagnosis: (1) Major depressive disorder, recurrent (2) Suicidal ideation (3) Personality disorder Psychiatrist's Progress Note Date of Service: Jun 04, 2025 Notes CHART REVIEW Pt admitted on a 5150 Hold for DTS. per hold Pt is experiencing SI with plan to stab herself in the abdomen with a knife. Patient was discharged from this unit on 04/30/25 and came back to the ED the next day citing SI with plan. ASSESSMENT The patient was interviewed in observation room with RN present. The patient was actively walking in hallway with headphones on. The patient endorses "I am feeling depressed." The patient endorses she is depressed because "Adi Pardo a wonderful man " and she did not have a chance to write him. "I am always procrastinating and putting things off. I do that type of stuff all the time." Denies SI. Denies HI. Denies AVH. The patient endorses adequate sleep and food intake. The patient is stable no acute distress noted. The patient presents as calm, cooperative, and engaged during session. Despite the patient endorses she is depressed she was still able to laugh and joke during session. Per staff report patient was medication compliant. Per staff report no abnormal behaviors Will continue daily assessment and adjusting treatment as needed. Closely monitor behavior and response to medication during hospitalization. If the patient continues to show improvement possible discharge next Saturday. The plan is to discharge patient and follow up with her provider Isak on the same day of discharge. Results Of any Diagn. Testing REVIEW OF LABS TSH 1.82 Speech: Other (CIRCUMSTANTIAL) Eye Contact: Normal Motor Activity: Normal Affect: Full Mood: Depressed Orientation Impairment: None Memory Impairment: None Attention: Normal Hallucinations: None Other: None Suicidality: None Homicidality: None Delusions: None Behavior: Cooperative Insight: Fair Judgment: Fair Treatment REMERON 30MG PO QHS-HELP WITH ANXIETY AND DEPRESSION LEVOTHYROXINE 50 MCG P.O. DAILY TRAZODONE 50 MG P.O. PRN SLEEP HSMR X1 HYDROXYZINE 50 MG P.O. Q.6 PRN LITHIUM 150 MG P.O. Q.H.S. ATIVAN 0.5 MG P.O. B.I.D. 5270 HOLD-GD- Patient is unable to formulate a plan to provide food, clothing, and senior care. We are still titrating medications to an effective dose while maintaining a therapeutic environment to prevent decompensation and readmission. Monitoring by Staff, Milieu, Group, and Individual counseling as needed -- According to the [place] Suicide Assessment the above named patient is on Q15 MINUTE CHECKS. Total time spent 35 minutes on REVIEW OF Clinical notes [X ] RN notes [X] PCT documentation [X] SW notes Labs [ X] Medications [X] Care trends/care activity [X] Vitals [X] DISCUSSION WITH director index [X] Staff SW Treatment Team [X] Voice recognition software may have been used to dictate this note. There may be errors due to use of such software. Reporting of serious errors is appreciated. Discharge UNSURE AT THIS TIME. DISCHARGE HOME ONCE STABLE. CODING VISIT-PSYCHIATRY Date of Service: Jun 04, 2025 Billing Provider: DAVID NGUYEN APRN Psych Common Visit Codes: [id number] INP/OBS CARE(Mod) Problem Qualifiers (1) Major depressive disorder, recurrent: DAVID NGUYEN APRN Jun 04, 2025 13:59
[2025-06-04 17:35] VITALS: RESP 16; O2SAT 97
[2025-06-04 19:00] VITALS: RESP 16; O2SAT 97
[2025-06-04 20:00] VITALS: BP 112/69; PULSE 86; RESP 16; TEMP 97.6; O2SAT 97
[2025-06-05 07:00] VITALS: RESP 16; O2SAT 97
[2025-06-05 08:00] VITALS: BP 109/64; PULSE 85; RESP 16; TEMP 97.6; O2SAT 97
--- NOTE | 2025-06-05 12:43 | PROGRESS NOTE ---
Progress Note Dictate Providers to CC ~ Central Line/PICC still needed: N\A Antibiotic Ordered?: N/A MRSA Education MRSA Education Provided to pt: N/A Objective Vitals Vital Signs Date Time Temp Pulse Resp B/P (MAP) Pulse Ox O2 Delivery O2 Flow Rate FiO2 06/05/25 08:00 97.6 85 16 109/64 (79) 97 Room Air 06/05/25 07:00 0.0 Lab Results: 06/02/25 0853 Psychiatrist's Progress Note Notes CHART REVIEW Pt admitted on a 5150 Hold for DTS. per hold Pt is experiencing SI with plan to stab herself in the abdomen with a knife. Patient was discharged from this unit on 04/30/25 and came back to the ED the next day citing SI with plan. ASSESSMENT The patient was interviewed in observation room with RN present. The patient was in the dining room with other residents and appears to be socializing well. Patient states she still feels depressed, and the future makes her feel hopeless. She states the Ativan is helping with the anxiety but feels a little strong. Patient states her gaye gives her strength in dealing with her mental health issues. Denies SI. Denies HI. Denies AVH. The patient endorses adequate sleep and food intake. The patient is stable no acute distress noted. The patient presents as calm, cooperative, and engaged during session. Despite the patient endorses she is depressed she was still able to laugh and joke during session. Per staff report patient was medication compliant. Per staff report no abnormal behaviors Will continue daily assessment and adjusting treatment as needed. Closely monitor behavior and response to medication during hospitalization. If the patient continues to show improvement possible discharge next Saturday. The plan is to discharge patient and follow up with her provider Isak on the same day of discharge. Appearnace: Neat Speech: Normal Eye Contact: Normal Motor Activity: Normal Affect: Other (sad) Mood: Depressed Orientation Impairment: None Memory Impairment: None Attention: Normal Hallucinations: None Other: None Suicidality: None Homicidality: None Delusions: None Behavior: Cooperative Insight: Fair Judgment: Fair Treatment REMERON 30MG PO QHS-HELP WITH ANXIETY AND DEPRESSION LEVOTHYROXINE 50 MCG P.O. DAILY TRAZODONE 50 MG P.O. PRN SLEEP HSMR X1 HYDROXYZINE 50 MG P.O. Q.6 PRN LITHIUM 150 MG P.O. Q.H.S. ATIVAN 0.5 MG P.O. B.I.D. 5270 HOLD-GD- Patient is unable to formulate a plan to provide food, clothing, and fci. We are still titrating medications to an effective dose while maintaining a therapeutic environment to prevent decompensation and readmission. Monitoring by Staff, Milieu, Group, and Individual counseling as needed -- According to the [place] Suicide Assessment the above named patient is on Q15 MINUTE CHECKS. Total time spent 35 minutes on REVIEW OF Clinical notes [X ] RN notes [X] PCT documentation [X] SW notes Labs [ X] Medications [X] Care trends/care activity [X] Vitals [X] DISCUSSION WITH creative services producer [X] Staff SW Treatment Team [X] Voice recognition software may have been used to dictate this note. There may be errors due to use of such software. Reporting of serious errors is appreciated. Discharge UNSURE AT THIS TIME. DISCHARGE HOME ONCE STABLE. CODING VISIT-PSYCHIATRY Date of Service: Jun 05, 2025 Billing Provider: LEEANNA DIXON APRN Psych Common Visit Codes: [id number] INP/OBS CARE(Mod) LEEANNA DIXON APRN Jun 05, 2025 12:43
[2025-06-05 19:00] VITALS: RESP 18; O2SAT 99
[2025-06-05 19:32] VITALS: BP 104/60; PULSE 74; RESP 18; TEMP 98.7; O2SAT 99
--- NOTE | 2025-06-05 20:11 | PROGRESS NOTE ---
Daily Progress Note Providers to CC ~ Antibiotic Timeout Antibiotic Ordered?: No Subjective This is the hospitalist progress note on patients hospitalized at [facility]. The patient has no acute medical complaints or concerns and none were voiced by nursing staff either Objective Vital Signs Date Time Temp Pulse Resp B/P (MAP) Pulse Ox O2 Delivery O2 Flow Rate FiO2 06/05/25 19:32 98.7 74 18 104/60 (75) 99 06/05/25 08:00 Room Air 06/05/25 07:00 0.0 Result Diagram: 06/02/25 0853 Gen. No acute distress alert and oriented Lungs clear to ascultation bilaterally, no wheezes rales or rhonchi appreciated Heart normal sinus rhythm no murmurs rubs or clicks noted Abdomen soft nontender bowel sounds are normoactive Lower extremities no clubbing cyanosis, nor edema appreciated bilaterally Problem\Assessment\Plan 74 years old female with a history of insomnia, anxiety, depression, palpitations, hypothyroidism, has been admitted at [facility] for suicidal ideation. 1. Suicide ideation: Patient has a history of anxiety and depression. Continue treat per psych recommendations. 2. Hypothyroidism: Continue levothyroxine 3. Severe protein calorie malnutrition with a BMI of 17.2. Continue ensure t.i.d. , Nutrition consult 4. Dry eyes : Eye drops 5. Chronic back pain : Non narcotic medications as needed 6 MiraLax ordered for constipation The hospitalist team will continue to follow the patient. Date of Service: Jun 05, 2025 Billing Provider: VIVIAN OLSON DO Common Visit Codes: [id number] INP/OBS CARE(LOW) VIVIAN OLSON DO Jun 05, 2025 20:11
[2025-06-06 07:00] VITALS: RESP 16; O2SAT 99
[2025-06-06 08:00] VITALS: BP 132/72; PULSE 94; RESP 16; TEMP 98.9; O2SAT 99
--- NOTE | 2025-06-06 12:38 | PROGRESS NOTE ---
Progress Note Dictate Providers to CC ~ Central Line/PICC still needed: N\A Antibiotic Ordered?: N/A MRSA Education MRSA Education Provided to pt: N/A Objective Vitals Vital Signs Date Time Temp Pulse Resp B/P (MAP) Pulse Ox O2 Delivery O2 Flow Rate FiO2 06/06/25 08:00 98.9 94 16 132/72 (92) 99 06/06/25 07:00 Room Air 0.0 Lab Results: 06/02/25 0853 Problem\Assessment\Plan Problems/Diagnosis: (1) Generalized anxiety disorder (2) MDD (major depressive disorder), recurrent, with melancholic features (3) Suicide ideation Psychiatrist's Progress Note Date of Service: Jun 06, 2025 Notes Chart Review Pt admitted on a 5150 Hold for DTS. per hold Pt is experiencing SI with plan to stab herself in the abdomen with a knife. Patient was discharged from this unit on 04/30/25 and came back to the ED the next day citing SI with plan. ASSESSMENT The patient was interviewed in observation room with RN present. The patient was in the dining room with other residents and appears to be socializing well. Patient states she still feels depressed, and the future makes her feel hopeless. She states the Ativan is helping with the anxiety but feels a little strong. Patient states her gaye gives her strength in dealing with her mental health issues. Denies SI. Denies HI. Denies AVH. The patient endorses adequate sleep and food intake. The patient is stable no acute distress noted. The patient came in to see me voluntarily, expressing interest and concern regarding her regimen. Patient was particularly concerned regarding Loa in her regimen and wanted to explore Buspirone or Gabapentin. She was also interested in Zoloft. The patient presents as calm, cooperative, and engaged during session. Despite the patient endorses she is depressed she was still able to laugh and joke during session. Per staff report patient was medication compliant. Per staff report no abnormal behaviors Will continue daily assessment and adjusting treatment as needed. Closely monitor behavior and response to medication during hospitalization. If the patient continues to show improvement possible discharge next Saturday. The plan is to discharge patient and follow up with her provider Isak on the same day of discharge. Patient's Status and Progress NO longer having suicidal ideations. She does appear to have recurrent levels of moderate anxiety. Appearnace: Neat, Disheveled Speech: Normal, Tangential, Pressured Eye Contact: Normal Motor Activity: Normal Affect: Full Mood: Depressed Orientation Impairment: None Memory Impairment: None Attention: Normal Hallucinations: None Other: None Suicidality: None Homicidality: None Delusions: None Behavior: Cooperative Insight: Poor Judgment: Poor Treatment REMERON 30MG PO QHS-HELP WITH ANXIETY AND DEPRESSION LEVOTHYROXINE 50 MCG P.O. DAILY TRAZODONE 50 MG P.O. PRN SLEEP HSMR X1 HYDROXYZINE 50 MG P.O. Q.6 PRN LITHIUM 150 MG P.O. Q.H.S. ATIVAN 0.5 MG P.O. B.I.D. 5270 HOLD-GD- Patient is unable to formulate a plan to provide food, clothing, and mcc. We are still titrating medications to an effective dose while maintaining a therapeutic environment to prevent decompensation and readmission. Monitoring by Staff, Milieu, Group, and Individual counseling as needed -- According to the [place] Suicide Assessment the above named patient is on Q15 MINUTE CHECKS. Total time spent 35 minutes on REVIEW OF Clinical notes [X ] RN notes [X] PCT documentation [X] SW notes Labs [ X] Medications [X] Care trends/care activity [X] Vitals [X] DISCUSSION WITH pediatric cns [X] Voice recognition software may have been used to dictate this note. There may be errors due to use of such software. Reporting of serious errors is appreciated. Discharge UNSURE AT THIS TIME. DISCHARGE HOME ONCE STABLE. CODING VISIT-PSYCHIATRY Date of Service: Jun 06, 2025 Billing Provider: LEEANNA DIXON APRN Psych Common Visit Codes: [id number] INP/OBS CARE(Mod) LEEANNA DIXON APRN Jun 06, 2025 12:38
[2025-06-06 20:00] VITALS: BP 99/54; PULSE 76; RESP 14; TEMP 98.5; O2SAT 98
[2025-06-07 07:37] VITALS: BP 101/62; PULSE 88; RESP 16; TEMP 98.7; O2SAT 98
[2025-06-07 08:00] VITALS: RESP 16; O2SAT 99
[2025-06-07] MEDS: OMEGA-3/DHA/EPA/FISH OIL 1 EACH CAPSULE.DR PO SCH (08:57)
--- NOTE | 2025-06-07 12:54 | PROGRESS NOTE ---
Progress Note Dictate Providers to CC ~ Central Line/PICC still needed: N\A Antibiotic Ordered?: No MRSA Education MRSA Education Provided to pt: No Objective Vitals Vital Signs Date Time Temp Pulse Resp B/P (MAP) Pulse Ox O2 Delivery O2 Flow Rate FiO2 06/07/25 07:37 98.7 88 16 101/62 (75) 98 Room Air 06/06/25 07:00 0.0 Problem\Assessment\Plan Problems/Diagnosis: (1) Major depressive disorder, recurrent (2) Suicidal ideation (3) Personality disorder Psychiatrist's Progress Note Date of Service: Jun 07, 2025 CODING VISIT-PSYCHIATRY Date of Service: Jun 07, 2025 Billing Provider: DAVID NGUYEN APRN Problem Qualifiers (1) Major depressive disorder, recurrent: DAVID NGUYEN APRN Jun 07, 2025 12:54
--- NOTE | 2025-06-07 13:06 | PROGRESS NOTE ---
Progress Note Dictate Providers to CC ~ Central Line/PICC still needed: N\\A Antibiotic Ordered?: No MRSA Education MRSA Education Provided to pt: No Objective Vitals Vital Signs Date Time Temp Pulse Resp B/P (MAP) Pulse Ox O2 Delivery O2 Flow Rate FiO2 06/07/25 07:37 98.7 88 16 101/62 (75) 98 Room Air 06/06/25 07:00 0.0 Problem\\Assessment\\Plan Problems/Diagnosis: (1) Major depressive disorder, recurrent (2) Suicidal ideation (3) Personality disorder Psychiatrist's Progress Note Date of Service: Jun 07, 2025 Notes CHART REVIEW Pt admitted on a 5150 Hold for DTS. per hold Pt is experiencing SI with plan to stab herself in the abdomen with a knife. Patient was discharged from this unit on 04/30/25 and came back to the ED the next day citing SI with plan. ASSESSMENT The patient was interviewed in observation room with RN present. The patient was actively sitting up in bed reading the Bible. The patient endorses "I am doing okay, better." "the medications still make me a little foggy but I can say I am better." The patient was informed that the fogginess will improve as she continues to take her medications and get used to them. Denies SI. Denies HI. Denies AVH. The patient endorses adequate sleep and food intake. The patient is stable no acute distress noted. The patient presents as calm, cooperative, and engaged during session. The patient has shown significant improvement since admission. Per staff report patient was medication compliant. Per staff report no abnormal behaviors Will continue daily assessment and adjusting treatment as needed. Closely monitor behavior and response to medication during hospitalization. If the patient continues to show improvement possible discharge next Saturday. The plan is to discharge patient and follow up with her provider Isak on the same day of discharge. Results Of any Diagn. Testing REVIEW OF LABS TSH 1.82 Appearnace: Other Speech: Other (CIRCUMSTANTIAL) Eye Contact: Normal Motor Activity: Normal Affect: Full Orientation Impairment: None Memory Impairment: None Attention: Normal Hallucinations: None Other: None Suicidality: None Homicidality: None Delusions: None Behavior: Cooperative Insight: Fair Judgment: Fair Treatment REMERON 30MG PO QHS-HELP WITH ANXIETY AND DEPRESSION LEVOTHYROXINE 50 MCG P.O. DAILY TRAZODONE 50 MG P.O. PRN SLEEP HSMR X1 HYDROXYZINE 50 MG P.O. Q.6 PRN LITHIUM 150 MG P.O. Q.H.S. ATIVAN 0.5 MG P.O. B.I.D. 5270 HOLD-GD- Patient is unable to formulate a plan to provide food, clothing, a nd longterm. We are still titrating medications to an effective dose while maintaining a therapeutic environment to prevent decompensation and readmission. Monitoring by Staff, Milieu, Group, and Individual counseling as needed -- According to the [place] Suicide Assessment the above named patient is on Q15 MINUTE CHECKS. Total time spent 50 minutes on REVIEW OF Clinical notes [X ] RN notes [X] PCT documentation [X] SW notes Labs [ X] Medications [X] Care trends/care activity [X] Vitals [X] DISCUSSION WITH registered nurse float pool [X] Staff SW Treatment Team [X] Voice recognition software may have been used to dictate this note. There may be errors due to use of such software. Reporting of serious errors is appreciated. Discharge UNSURE AT THIS TIME. DISCHARGE HOME ONCE STABLE. CODING VISIT-PSYCHIATRY Date of Service: Jun 07, 2025 Billing Provider: DAVID NGUYEN APRN Psych Common Visit Codes: [id number] INP/OBS CARE(Mod) Problem Qualifiers (1) Major depressive disorder, recurrent: DAVID NGUYEN APRN Jun 07, 2025 13:06
--- NOTE | 2025-06-07 14:03 | PROGRESS NOTE ---
Daily Progress Note Providers to CC ~ Antibiotic Timeout Antibiotic Ordered?: No Subjective Chief complaint none Review of systems negative for all 10 systems reviewed Objective Vital Signs Date Time Temp Pulse Resp B/P (MAP) Pulse Ox O2 Delivery O2 Flow Rate FiO2 06/07/25 07:37 98.7 88 16 101/62 (75) 98 Room Air 06/06/25 07:00 0.0 Patient is alert and oriented x3 no acute distress sitting up comfortably reading a book HEENT normocephalic nontraumatic head CVS first and second heart sounds are regular rate rhythm no murmurs gallops or rubs Respiratory system is clear to auscultate bilaterally no rales rhonchi crackles or wheezing Abdomen is soft scaphoid bowel sounds are positive nontender nondistended Extremities no clubbing cyanosis or edema Problem\Assessment\Plan 74 years old female with a history of insomnia, anxiety, depression, palp itations, hypothyroidism, has been admitted at [facility] for suicidal ideation. 1. Suicide ideation: Patient has a history of anxiety and depression. Continue treat per psych recommendations. 2. Hypothyroidism: Continue levothyroxine 3. Severe protein calorie malnutrition with a BMI of 17.2. Continue ensure t.i.d. , Nutrition consult 4. Dry eyes : Eye drops 5. Chronic back pain : Non narcotic medications as needed 6 MiraLax ordered for constipation The hospitalist team will continue to follow the patient. Date of Service: Jun 07, 2025 Billing Provider: JULES AMADOR MD Common Visit Codes: [id number] INP/OBS CARE(LOW) JULES AMADOR MD Jun 07, 2025 14:03
[2025-06-07 19:00] VITALS: RESP 16; O2SAT 97
[2025-06-07 20:00] VITALS: BP 106/55; PULSE 76; RESP 16; TEMP 97.7; O2SAT 97
[2025-06-08 07:03] VITALS: RESP 12; O2SAT 97
[2025-06-08 07:11] VITALS: BP 106/59; PULSE 77; RESP 12; TEMP 98.8; O2SAT 97
--- NOTE | 2025-06-08 16:18 | PROGRESS NOTE ---
Progress Note Dictate Providers to CC ~ Central Line/PICC still needed: N\\A Antibiotic Ordered?: No MRSA Education MRSA Education Provided to pt: No Objective Vitals Vital Signs Date Time Temp Pulse Resp B/P (MAP) Pulse Ox O2 Delivery O2 Flow Rate FiO2 06/08/25 07:11 98.8 77 12 106/59 (75) 97 Room Air 06/06/25 07:00 0.0 Problem\\Assessment\\Plan Problems/Diagnosis: (1) Major depressive disorder, recurrent (2) Suicidal ideation (3) Personality disorder Psychiatrist's Progress Note Date of Service: Jun 08, 2025 Notes CHART REVIEW Pt admitted on a 5150 Hold for DTS. per hold Pt is experiencing SI with plan to stab herself in the abdomen with a knife. Patient was discharged from this unit on 04/30/25 and came back to the ED the next day citing SI with plan. ASSESSMENT The patient was interviewed in observation room with RN present. The patient was actively sitting up in bed reading the Bible. The patient endorses "I feel better, still adjusting to the meds." The patient endorses she may go stay at a friend's house for a couple of weeks after discharge. Denies SI. Denies HI. Denies AVH. The patient endorses adequate sleep and food intake. The patient is stable no acute distress noted. The patient presents as pleasant, calm, cooperative, and engaged during session. The patient seems to be more accepted to having to take medications daily. The patient continues to show improvement. Per staff report patient was medication compliant. Per staff report no abnormal behaviors Will continue daily assessment and adjusting treatment as needed. Closely monitor behavior and response to medication during hospitalization. Results Of any Diagn. Testing REVIEW OF LABS TSH 1.82 Speech: Other (CIRCUMSTANTIAL) Eye Contact: Normal Motor Activity: Normal Affect: Full Orientation Impairment: None Memory Impairment: None Attention: Normal Hallucinations: None Other: None Suicidality: None Homicidality: None Delusions: None Behavior: Cooperative Insight: Fair Judgment: Fair Treatment REMERON 30MG PO QHS-HELP WITH ANXIETY AND DEPRESSION LEVOTHYROXINE 50 MCG P.O. DAILY TRAZODONE 50 MG P.O. PRN SLEEP HSMR X1 HYDROXYZINE 50 MG P.O. Q.6 PRN LITHIUM 150 MG P.O. Q.H.S. ATIVAN 0.5 MG P.O. B.I.D. 5270 HOLD-GD- Patient is unable to formulate a plan to provide food, clothing, and halfway. We are still titrating medications to an effective dose while maintaining a therapeutic environment to prevent decompensation and readmission. Monitoring by Staff, Milieu, Group, and Individual counseling as needed -- According to the [place] Suicide Assessment the above named patient is on Q15 MINUTE CHECKS. Total time spent 35 minutes on REVIEW OF Clinical notes [X ] RN notes [X] PCT documentation [X] SW notes Labs [ X] Medications [X] Care trends/care activity [X] Vitals [X] DISCUSSION WITH qa consultant [X] Staff SW Treatment Team [X] Voice recognition software may have been used to dictate this note. There may be errors due to use of such software. Reporting of serious errors is appreciated. Discharge UNSURE AT THIS TIME. DISCHARGE HOME ONCE STABLE. CODING VISIT-PSYCHIATRY Date of Service: Jun 08, 2025 Billing Provider: DAVID NGUYEN APRN Psych Common Visit Codes: [id number] INP/OBS CARE(Mod) Problem Qualifiers (1) Major depressive disorder, recurrent: DAVID NGUYEN APRN Jun 08, 2025 16:18
[2025-06-08 19:00] VITALS: RESP 16; O2SAT 100
[2025-06-08 20:00] VITALS: BP 110/68; PULSE 70; RESP 16; TEMP 98; O2SAT 100
[2025-06-09 07:00] VITALS: RESP 12; O2SAT 97
[2025-06-09 07:30] VITALS: BP 129/66; PULSE 88; RESP 16; TEMP 98.8; O2SAT 98
--- NOTE | 2025-06-09 10:40 | PROGRESS NOTE ---
Daily Progress Note Providers to CC ~ Antibiotic Timeout Antibiotic Ordered?: No Subjective Chief complaint none Review of systems negative for all 10 systems reviewed Objective Vital Signs Date Time Temp Pulse Resp B/P (MAP) Pulse Ox O2 Delivery O2 Flow Rate FiO2 06/09/25 07:30 98.8 88 16 129/66 (87) 98 Room Air 06/06/25 07:00 0.0 Patient is alert and oriented x3 no acute distress HEENT normocephalic nontraumatic head Ambulating in the hallways without any difficulty Problem\Assessment\Plan 74 years old female with a history of insomnia, anxiety, depression, palpitations, hypothyroidism, has been admitted at [facility] for suicidal ideation. 1. Suicide ideation: Patient has a history of anxiety and depression. Continue treat per psych recommendations. 2. Hypothyroidism: Continue levothyroxine 3. Severe protein calorie malnutrition with a BMI of 17.2. Continue ensure t.i.d. , Nutrition consult 4. Dry eyes : Eye drops 5. Chronic back pain : Non narcotic medications as needed 6 MiraLax ordered for constipation The hospitalist team will continue to follow the patient. Date of Service: Jun 09, 2025 Billing Provider: JULES AMADOR MD Common Visit Codes: [id number] INP/OBS CARE(LOW) JULES AMADOR MD Jun 09, 2025 10:40
[2025-06-09] MEDS: lactose-reduced food (Ensure Enlive) - 237ml bottle PO SCH (12:19)
--- NOTE | 2025-06-09 15:52 | PROGRESS NOTE ---
Progress Note Dictate Providers to CC ~ Central Line/PICC still needed: N\\A Antibiotic Ordered?: No MRSA Education MRSA Education Provided to pt: No Objective Vitals Vital Signs Date Time Temp Pulse Resp B/P (MAP) Pulse Ox O2 Delivery O2 Flow Rate FiO2 06/09/25 07:30 98.8 88 16 129/66 (87) 98 Room Air 06/06/25 07:00 0.0 Problem\\Assessment\\Plan Problems/Diagnosis: (1) Major depressive disorder, recurrent (2) Suicidal ideation (3) Personality disorder Psychiatrist's Progress Note Date of Service: Jun 09, 2025 Notes CHART REVIEW Pt admitted on a 5150 Hold for DTS. per hold Pt is experiencing SI with plan to stab herself in the abdomen with a knife. Patient was discharged from this unit on 04/30/25 and came back to the ED the next day citing SI with plan. ASSESSMENT The patient was interviewed in observation room with RN present. The patient was actively in hallway talking on telephone. The patient endorses "I am feeling down today." "I am frustrated about not being able to leave today and I know I have to get out of my apartment soon because the rent is high." "I talked to my case management social worker about [facility], I am just trying to way out my options." Denies SI. Denies HI. Denies AVH. The patient endorses adequate sleep and food intake. The patient is stable no acute distress noted. The patient presents as a little depressed, cooperative, and engaged during session. The patient has an appointment scheduled with her outside provider next Saturday, Isak He.. Patient was informed she may discharge before Saturday as long as she has someone to provide collateral for a safe discharge plan. "I will have my friend Lynne talk with you." The patient was informed she is stable for discharge but a safe discharge plan needs to be in place to prevent re-hospitalization. Per staff report patient was medication compliant. Per staff report no abnormal behaviors. Will continue daily assessment and adjusting treatment as needed. Closely monitor behavior and response to medication during hospitalization. Per case management social worker's note Pt met with an [facility] farmworker livestock yesterday to get services going for when she returns home to her apartment and the patient has interview with [facility] tomorrow. Results Of any Diagn. Testing REVIEW OF LABS LITHIUM 0.2 TSH 1.82 Appearnace: Other Speech: Other (CIRCUMSTANTIAL) Eye Contact: Normal Motor Activity: Normal Affect: Full Mood: Depressed Orientation Impairment: None Memory Impairment: None Attention: Normal Hallucinations: None Other: None Suicidality: None Homicidality: None Delusions: None Behavior: Cooperative Insight: Fair Judgment: Fair Treatment REMERON 30MG PO QHS-HELP WITH ANXIETY AND DEPRESSION LEVOTHYROXINE 50 MCG P.O. DAILY TRAZODONE 50 MG P.O. PRN SLEEP HSMR X1 HYDROXYZINE 50 MG P.O. Q.6 PRN Increase LITHIUM 300MG P.O. Q.H.S. ATIVAN 0.5 MG P.O. B.I.D. 5270 HOLD-GD- Patient is unable to formulate a plan to provide food, clothing, and senior care. We are still titrating medications to an effective dose while maintaining a therapeutic environment to prevent decompensation and readmission. Monitoring by Staff, Milieu, Group, and Individual counseling as needed -- According to the [place] Suicide Assessment the above named patient is on Q15 MINUTE CHECKS. Total time spent 50 minutes on REVIEW OF Clinical notes [X ] RN notes [X] PCT documentation [X] SW notes Labs [ X] Medications [X] Care trends/care activity [X] Vitals [X] DISCUSSION WITH gusset ripper [X] Staff SW Treatment Team [X] Voice recognition software may have been used to dictate this note. There may be errors due to use of such software. Reporting of serious errors is appreciated. Discharge UNSURE AT THIS TIME. DISCHARGE HOME ONCE STABLE. CODING VISIT-PSYCHIATRY Date of Service: Jun 09, 2025 Billing Provider: DAVID NGUYEN APRN Psych Common Visit Codes: [id number] INP/OBS CARE(Mod) Problem Qualifiers (1) Major depressive disorder, recurrent: DAVID NGUYEN APRN Jun 09, 2025 15:52
[2025-06-09 19:00] VITALS: RESP 16; O2SAT 95
[2025-06-09 20:16] VITALS: BP 120/79; PULSE 79; RESP 16; TEMP 97; O2SAT 95
[2025-06-10 07:00] VITALS: RESP 16; O2SAT 98
[2025-06-10 08:00] VITALS: BP 103/58; PULSE 86; RESP 16; TEMP 98; O2SAT 98
--- NOTE | 2025-06-10 15:49 | PROGRESS NOTE ---
Progress Note Dictate Providers to CC ~ Central Line/PICC still needed: N\\A Antibiotic Ordered?: No MRSA Education MRSA Education Provided to pt: No Objective Vitals Vital Signs Date Time Temp Pulse Resp B/P (MAP) Pulse Ox O2 Delivery O2 Flow Rate FiO2 06/10/25 08:00 98.0 86 16 103/58 (73) 98 Room Air 06/06/25 07:00 0.0 Problem\\Assessment\\Plan Problems/Diagnosis: (1) Major depressive disorder, recurrent (2) Suicidal ideation (3) Personality disorder Psychiatrist's Progress Note Date of Service: Jun 10, 2025 Notes CHART REVIEW Pt admitted on a 5150 Hold for DTS. per hold Pt is experiencing SI with plan to stab herself in the abdomen with a knife. Patient was discharged from this unit on 04/30/25 and came back to the ED the next day citing SI with plan. ASSESSMENT The patient was interviewed in observation room with RN present. The patient was actively in hallway talking on telephone. The patient endorses "I am a little antsy today." "It would have been my dad's 111th birthday, today." The patient endorses she really is not interested in going to [facility] with a "bunch of strangers in three people in a bedroom." Denies SI. Denies HI. Denies AVH. The patient endorses adequate sleep and food intake. The patient is stable no acute distress noted. The patient presents as calm, cooperative, and engaged during session. Extensive discussion with the patient regarding medication compliance once discharged to prevent decompensation and rehospitalization. Per staff report patient was medication compliant. Per staff report no abnormal behaviors. Will continue daily assessment and adjusting treatment as needed. Closely monitor behavior and response to medication during hospitalization. Collateral received Natasha Ryan. Tania was able to come up with a safe discharge plan. Chadwick endorses she would reach out to the Crisis hotline if she starts feeling suicidal or worsening mental health symptoms. The patient will discharge tomorrow. appointment with [facility] at [facility] on SaturdayJune 16 @ 1440. Results Of any Diagn. Testing REVIEW OF LABS LITHIUM 0.2 TSH 1.82 Appearnace: Other Speech: Other (CIRCUMSTANTIAL) Eye Contact: Normal Motor Activity: Normal Affect: Full Orientation Impairment: None Memory Impairment: None Attention: Normal Hallucinations: None Other: None Suicidality: None Homicidality: None Delusions: None Behavior: Cooperative Insight: Fair Judgment: Fair Treatment REMERON 30MG PO QHS-HELP WITH ANXIETY AND DEPRESSION LEVOTHYROXINE 50 MCG P.O. DAILY TRAZODONE 50 MG P.O. PRN SLEEP HSMR X1 HYDROXYZINE 50 MG P.O. Q.6 PRN Increase LITHIUM 300MG P.O. Q.H.S. ATIVAN 0.5 MG P.O. B.I.D. 5270 HOLD-GD- Patient is unable to formulate a plan to provide food, clothing, and intermediate. We are still titrating medications to an effective dose while maintaining a therapeutic environment to prevent decompensation and readmission. Monitoring by Staff, Milieu, Group, and Individual counseling as needed -- According to the [place] Suicide Assessment the above named patient is on Q15 MINUTE CHECKS. Total time spent 35 minutes on REVIEW OF Clinical notes [X ] RN notes [X] PCT documentation [X] SW notes Labs [ X] Medications [X] Care trends/care activity [X] Vitals [X] DISCUSSION WITH wire stitcher machine [X] Staff SW Treatment Team [X] Voice recognition software may have been used to dictate this note. There may be errors due to use of such software. Reporting of serious errors is appreciated. Discharge UNSURE AT THIS TIME. DISCHARGE HOME ONCE STABLE. CODING VISIT-PSYCHIATRY Date of Service: Jun 10, 2025 Billing Provider: DAVID NGUYEN APRN Psych Common Visit Codes: [id number] INP/OBS CARE(Mod) Problem Qualifiers (1) Major depressive disorder, recurrent: DAVID NGUYEN APRN Jun 10, 2025 15:49
[2025-06-10 19:00] VITALS: RESP 16; O2SAT 91
[2025-06-10 20:00] VITALS: BP 110/56; PULSE 78; RESP 16; TEMP 98.5; O2SAT 91
[2025-06-11 08:00] VITALS: BP 102/65; PULSE 78; RESP 14; TEMP 98.1; O2SAT 99
[2025-06-11] MEDS ORDERED: PANT40TA54 PO (09:59)
[2025-06-11] MEDS ORDERED: MIRT-88 PO (09:59)
[2025-06-11] MEDS ORDERED: MULT-25 PO (09:59)
[2025-06-11] MEDS ORDERED: POLY15DR40 EACHEYE (09:59)
[2025-06-11] MEDS ORDERED: OMEG1CAP46 PO (09:59)
[2025-06-11] MEDS ORDERED: Lorazepam PO (09:59)
[2025-06-11] MEDS ORDERED: LEVO50TA8 PO (09:59)
[2025-06-11] MEDS ORDERED: LIT300C PO (09:59)
[2025-06-11] MEDS ORDERED: polyethylene glycol 3350 pkt PO (09:59)
[2025-06-11] MEDS ORDERED: [UNRECOGNIZED DRUG - OTHER] MM (09:59)
--- NOTE | 2025-06-11 11:44 | DISCHARGE SUMMARY ---
Discharge Summary Providers to CC ~ Discharge Summary Admission Diagnosis: GENERALIZED ANXIETY. MDD. SUICIDAL IDEATION. Hospital Course DATE OF ADMISSION: DATE OF DISCHARGE: Discharge Diagnosis\\Comment: GENERALIZED ANXIETY. MDD. SUICIDAL IDEATION. PERSONALITY DISORDER Operations\\Procedures: NONE Consultants: MEDICAL TEAM Complications: NONE Condition on DC: Stable 2 or more antipsychotic used: No 2/more antipsychotic addressed: No Does Patient smoke: No Smoking education given.: No New Medications: [place] Carbonate (LITHIUM CARBONATE tablet) 300 Mg Tablet.sa 300 MG PO HS for 14 Days, #14 TAB.SR [Lorazepam*] () 0.5 MG TABLET 0.5 MG PO BID for 14 Days, #28 TAB Mirtazapine (Mirtazapine) 30 Mg Tablet 1 TAB PO HS for 30 Days, #30 TAB 0 Refills Multivitamin with Folic Acid (Thera Tablet) 400 Mcg Tablet 1 EACH PO DAILY for 30 Days, #30 TAB [place]-3 Fatty Acids/Fish Oil ([place] 3 1,000 mg Softgel) 300 Mg-1,000 Mg Capsule 1 CAP PO DAILY for 30 Days, #30 CAP Pantoprazole Sodium (Pantoprazole Sodium) 40 Mg Tablet.dr 40 MG PO BKF for 30 Days, #30 TAB.SR [phenol throat spray] () 1 SPRAY SPRAY 2 SPRAY MM Q4H PRN for sore throat for 30 Days, #1 [polyethylene glycol 3350 pkt] () 17 GM POWD.PACK 17 GM PO HS for 30 Days, #1 Polyvinyl Alcohol (Polyvinyl Alcohol) 1.4 % Drops 1 DROP EACHEYE Q6H PRN for dry eyes for 30 Days, #1 DROP Continued Medications: Levothyroxine Sodium (Levothyroxine Sodium) 50 Mcg Tablet 1 TAB PO DAILY for 30 Days, #30 TAB (This prescription has been renewed) Discontinued Medications: Escitalopram Oxalate (Escitalopram Oxalate) 10 Mg Tablet 1 TAB PO DAILY, TAB 0 Refills [est/pro/test cream] () 2 UNIT TOP DAILY Alternate administration site daily (thighs) Gabapentin (Gabapentin) 100 Mg Capsule 2 CAP PO TID Pantoprazole Sodium (Pantoprazole Sodium) 40 Mg Tablet.dr 1 TAB PO DAILY Quetiapine Fumarate (Seroquel) 25 Mg Tablet 1 TAB PO HS, TAB Discharge Summary: CHART REVIEW Patient actively seen and examined on day of discharge 06/11/2025, by myself, RAFIQ Cooper. The patient is interviewed in psychiatric exam room. The patient endorses "Good." Denies SI. Denies HI. Denies AVH. Jhony was able to formulate a safety plan which includes going to the emergency room if symptoms return or worsen. Call [phone] or [phone] for immediate assistance if necessary During his hospital stay, Jhony receive multidisciplinary treatment she adhered to his medication regimen and has been pleasant and cooperative. She denies any suicidal ideation (SI), homicidal ideation (HI), auditory/visual hallucination (HI). Staff has reported no behavioral issues, and the patient has been sleeping well, adequate food intake, with no mood or behavioral changes noted. The decision to discharge Jhony was made in consensus with the treatment team, including the renal social worker, community health coordinator, and charge lpn on duty. The patient was discharged with a 30 day supply of medications. MENTAL STATUS EXAM APPEARANCE: APPROPRIATELY. DRESSED IN STREET CLOTHING. SPEECH: CIRCUMSTANTIAL EYE CONTACT: NORMAL AFFECT: CONGRUENT WITH MOOD MOOD: "GOOD" ORIENTATION IMPAIRMENT: NONE MEMORY IMPAIRMENT: NONE ATTENTION: NORMAL HALLUCINATIONS: NONE SUICIDALITY: NONE HOMICIDALITY: NONE DELUSIONS: NONE BEHAVIOR: COOPERATIVE, PLEASANT JUDGMENT: POOR INSIGHT: POOR Continue Current Inpatient Psychotropic Regimen @ home Follow-Up with Psychiatric Provider Safety Plan Discussed DISCHARGE CONDITION: Her readiness for discharge is supported by his stable mental status, adherence to treatment, and proactive approach to managing his mental health. Denies SI. Denies HI. Denies A/V/H. The patient has been informed to continue follow-up care to ensure ongoing support and monitoring. Patient discharged to home. *Problems/Diagnosis: (1) Generalized anxiety disorder (2) MDD (major depressive disorder), recurrent, with melancholic features (3) Suicide ideation Total Time Spent on D/C: > 30 Minutes Counseling Services Smoking & Tobacco Cessation: N/A CODING VISIT-PSYCHIATRY Date of Service: Jun 11, 2025 Billing Provider: DAVID NGUYEN APRN Psych Common Visit Codes: [id number] DISCH DAY >30min DAVID NGUYEN APRN Jun 11, 2025 11:44
--- NOTE | 2025-06-11 18:26 | PROGRESS NOTE- Residence ---
Progress Note - Resident Providers to CC Resident Creating Document: CARLOS SLADE RES ~ Antibiotic Timeout Antibiotic Ordered?: No Subjective We could not evaluate the patient since she was already discharged when we went to evaluate the patient Objective Vital Signs Date Time Temp Pulse Resp B/P (MAP) Pulse Ox O2 Delivery O2 Flow Rate FiO2 06/11/25 08:00 98.1 78 14 102/65 (77) 99 Room Air Assessment Assessment 74-year-old female with history of insomnia, anxiety/depression, palpitations secondary to anxiety, hypothyroidism, is admitted to the [facility] for suicidal ideation with plan. Plan Plan Date of Service: Jun 11, 2025 Billing Provider: SNEHAL STRICKLAND MD Common Visit Codes: [id number] INP/OBS CARE(MOD) CARLOS SLADE RES Jun 11, 2025 18:26 SNEHAL STRICKLAND MD Jun 12, 2025 07:37
== END 2025-06-11 16:17 | disposition home or self-care (01) | DRG 885 ==
LOC: ER 15:10 → ADULT MH 05-03 10:00 → UNDOADMIN 05-03 10:00 → ADULT MH 05-03 12:46
PROVIDERS: ADMIT Psychiatry & Neurology Psychiatry; ATTEND Psychiatry & Neurology Psychiatry
PROC: GZHZZZZ Group Psychotherapy (ICD-10-PCS; principal; 2025-05-04)
PROC: GZ51ZZZ Individual Psychotherapy, Behavioral (ICD-10-PCS; 2025-05-04)
DX: F33.2 Major depressive disorder, recurrent severe without psychotic features (principal); E43 Unspecified severe protein-calorie malnutrition; R45.851 Suicidal ideations; Z68.1 Body mass index [BMI] 19.9 or less, adult; E87.1 Hypo-osmolality and hyponatremia; F41.1 Generalized anxiety disorder; G47.00 Insomnia, unspecified; Z20.822 Contact with and (suspected) exposure to COVID-19; F90.9 Attention-deficit hyperactivity disorder, unspecified type; R07.89 Other chest pain; K59.00 Constipation, unspecified; E03.9 Hypothyroidism, unspecified; G89.29 Other chronic pain; M54.89 Other dorsalgia; Z79.899 Other long term (current) drug therapy; Z88.2 Allergy status to sulfonamides; Z88.8 Allergy status to other drugs, medicaments and biological substances; Z91.148 Patient's other noncompliance with medication regimen for other reason; Z91.128 Patient's intentional underdosing of medication regimen for other reason
CPT/HCPCS: 36415; 70551; 71045; 80048; 80178; 80305; 80320; 81001; 83880; 84295; 84443; 84484; 85025; 87081; 87811; 93005; 99285; A4353; A6250; Q0177

== ENCOUNTER 2025-08-18 09:39 | Outpatient (CLI) | payer MEDICARE, MEDICAID ==
[~2025-08-18 09:39] MED LIST changes: -ESCI-8 PO; -GABA-530 PO; +LIT300C PO; +Lorazepam PO; +MIRT-88 PO; +MULT-25 PO; +OMEG1CAP46 PO; +POLY15DR40 EACHEYE; -TEMA15CA PO; +[UNRECOGNIZED DRUG - OTHER] MM; +polyethylene glycol 3350 pkt PO
--- NOTE | 2025-08-18 14:16 | RADIOLOGY REPORT ---
CT Chest without intravenous contrast INDICATION: OTHER DISORDERS OF LUNG TECHNIQUE: Multidetector spiral CT of the chest was performed from the lung apices to the upper abdomen. Axial, coronal and sagittal multiplanar reformats were performed. Radiation Dose : 1. Chest: CTDI volume is 3.8 mGy. Dose-length product is 154.2 mGy*cm The dose indicators for CT are the volume Computed Tomography (CT) Dose Index (CTDIvol) and the Dose Length Product (DLP), and are measured in units of mGy and mGy-cm, respectively. These indicators are not patient dose, but values generated from the CT scanner acquisition factors. The report includes radiation exposure data for exposures received during this examination. Comparison: MR MRI HEAD on DOS: 05/12/25, DI CHEST,SINGLE VIEW on DOS: 05/01/25, DI CHEST,SINGLE VIEW on DOS: 11/19/24, DI CHEST,SINGLE VIEW on DOS: 09/24/24, DI CHEST,SINGLE VIEW on DOS: 09/14/23 Findings: Lower neck: Normal thyroid. Lungs: Mild diffuse patchy peripheral ground-glass opacities most prominent in the right middle lobe. Mild biapical scarring. Heart/Vascular Structures: Normal heart size. No pericardial effusion. Lymph Nodes: No adenopathy Pleura: No pleural effusion or significant pneumothorax. Musculoskeletal: No acute osseous abnormality. Multilevel degenerative changes of the spine. Soft tissues: Normal. Upper abdomen: Limited portions of the upper abdomen are unremarkable. IMPRESSION: Mild diffuse patchy peripheral ground-glass opacities most prominent in the right middle lobe. Findings may be atypical infectious or inflammatory process or possible early changes of pulmonary fibrosis. Clinical correlation advised. Radiation optimization: All CT scans at this facility use at least one of these dose optimization techniques: automated exposure control mA and/or kV adjustment per patient size (includes targeted exams where dose is matched to clinical indication) or iterative reconstruction.
== END 2025-08-18 23:59 | disposition home or self-care (01) ==
LOC: RAD 09:39
PROVIDERS: ATTEND Student in an Organized Health Care Education/Training Program
DX: M47.814 Spondylosis without myelopathy or radiculopathy, thoracic region (principal); J98.4 Other disorders of lung
CPT/HCPCS: 71250

== ENCOUNTER 2025-08-28 17:36 | Inpatient (IN) | payer MEDICARE, MEDICAID ==
[~2025-08-28] VITALS: Ht 160 cm; Wt 43.2 kg
--- NOTE | 2025-08-28 18:01 | Physician Documentation ---
History of Present Illness ~ Chief Complaint: Mental Health Eval Stated Complaint: DOUBLE VISION Time Seen by MD: 17:59 Primary Medical Doctor: DAYNE COLLAZO HPI 75-year-old female with a known history of depression and previous inpatient psych hold presents today with reported statements of self-harm intent. States that she was going to use a knife to harm herself. She feels hopeless and life. Additionally this patient has been seen by multiple mental health professionals and she acknowledges that he she has repeatedly not followed the advice that she has been given. States that she knows she is self destructive. Day of Onset: Aug 28, 2025 Medication Reconciliation Allergies: Coded Allergies: quetiapine (Verified Allergy, Intermediate, increased anxiety, 08/28/25) Sulfa (Sulfonamide Antibiotics) (Verified Allergy, Unknown, 08/28/25) Scheduled Buspirone HCl (Buspirone HCl), 1 TAB PO TID, (Reported) Escitalopram Oxalate (Escitalopram Oxalate), 1 TAB PO DAILY, (Reported) Levothyroxine Sodium (Levothyroxine Sodium), 1 TAB PO DAILY Mirtazapine (Mirtazapine), 1 TAB PO HS Multivitamin with Folic Acid (Thera Tablet), 1 EACH PO DAILY Pantoprazole Sodium (Pantoprazole Sodium), 40 MG PO BKF Trazodone HCl (Trazodone HCl), 1 TAB PO HS, (Reported) Scheduled PRN Polyvinyl Alcohol (Polyvinyl Alcohol), 1 DROP EACHEYE Q6H PRN for dry eyes Discontinued Medications Buspirone HCl (Buspirone HCl), 1 TAB PO TID, (Reported) Discontinued Reason: Other [place] Carbonate (LITHIUM CARBONATE tablet), 300 MG PO HS Discontinued Reason: patient no longer taking Parlin-3 Fatty Acids/Fish Oil (Parlin 3 1,000 mg Softgel), 1 CAP PO DAILY Discontinued Reason: patient no longer taking [Lorazepam*], 0.5 MG PO BID Discontinued Reason: patient no longer taking [phenol throat spray], 2 SPRAY MM Q4H PRN for sore throat Discontinued Reason: patient no longer taking [polyethylene glycol 3350 pkt], 17 GM PO HS Discontinued Reason: patient no longer taking Past Medical History Past Medical History: *CARDIOVASCULAR*, Thyroid (unspecified), Anxiety, Depression Past Surgical History: no surgical history Patient History: Patient reports no known family medical history. Alcohol Use: Rarely Drug Use: none Lives In: Home Occupation: employed Physical Exam Vital Signs: Temperature: 97.2, Source: Temporal, Heart Rate: 76, Respiratory Rate: 22, BP: 138/72, Pulse Oximetry: 98, Weight: 43.200 Oxygen Flow Rate: 0 Physical Exam General: Alert, no apparent distress. Respiratory: Lungs clear, no respiratory distress. Cardiovascular: Regular rate and rhythm, no murmurs. Gastrointestinal: Soft, nontender, nondistended. Bowels sounds present. Neurologic: Oriented x4. Psychiatric: anxious appearing Skin: Normal color, warm and dry. No edema, no ecchymosis. Progress Results/Orders Results/Orders Orders - VALDO ANDRADE MD Ct Head (08/29/25 13:20) Md Wilfred Schultz (08/29/25 16:28) Completed Orders - VALDO ANDRADE MD Ct Head (08/29/25 13:20) Vital Signs 08/28/25 08/28/25 08/29/25 08/29/25 17:40 21:32 05:44 08:08 Temp 97.2 98.4 Pulse 76 77 Resp 22 17 16 B/P (MAP) 138/72 135/73 (93) Pulse Ox 98 97 O2 Flow Rate 0 08/29/25 17:17 Temp 97.9 Pulse 83 Resp 16 B/P (MAP) 145/46 (79) Pulse Ox 95 O2 Flow Rate 0 Laboratory Tests Test 08/28/25 18:28 08/28/25 19:55 08/28/25 22:07 White Blood Count 6.9 Red Blood Count 4.11 L Hemoglobin 12.6 Hematocrit 36.4 Mean Corpuscular Volume 88.7 Mean Corpuscular Hemoglobin 30.6 Mean Corpuscular Hemoglobin Concent 34.5 Red Cell Distribution Width 14.4 Platelet Count 287 Mean Platelet Volume 7.5 Neutrophils (%) (Auto) 74.5 Lymphocytes (%) (Auto) 18.5 L Monocytes (%) (Auto) 6.3 Eosinophils (%) (Auto) 0.2 Basophils (%) (Auto) 0.5 Neutrophils # (Auto) 5.1 Lymphocytes # (Auto) 1.3 Monocytes # (Auto) 0.4 Eosinophils # (Auto) 0.0 Basophils # (Auto) 0.0 CBC Comment Sodium Level 131 L Potassium Level 4.1 Chloride Level 98 L Carbon Dioxide Level 28.6 Anion Gap 4 L Blood Urea Nitrogen 27 H Creatinine 0.51 Estimated GFR/1.73 m2 > 90 BUN/Creatinine Ratio 52.9 H Glucose Level 99 Calcium Level 8.6 Albumin 3.5 Thyroid Stimulating Hormone (TSH) 2.24 Chemistry Comments [place] Level < 0.2 L Ethyl Alcohol Level < 10 Urine Specimen Description Non-specified Urine Color Yellow Urine Clarity Clear Urine pH 5.5 Urine Specific [place] 1.010 Urine Protein Negative Urine Glucose (UA) Negative Urine Ketones Negative Urine Occult Blood Small Urine Nitrite Negative Urine Bilirubin Negative Urine Urobilinogen 0.2 Urine Leukocyte Esterase Negative Urine RBC 0-2 Urine WBC 0-4 Urine Squamous Epithelial Cells Few Urine Bacteria None seen Volume Urine Centrifuged 10 ml Urine Comment Urine Opiates Screen Negative Urine Methadone Screen Negative Urine Fentanyl Screen Negative Urine Barbiturates Screen Negative Urine Phencyclidine Screen Negative Urine Amphetamines Screen Negative Urine Benzodiazepines Screen Negative Urine Cocaine Screen Negative Urine Cannabinoids Screen Negative Drug Screen Comment SARS-CoV-2 Antigen (Rapid) Negative Re-Evaluation Re-Evaluation : Re-Evaluation Time: 13:15 Progress [id number] Pt asked to speak with me -- she is on a mental health hold currently but states that her presenting complaint was double vision and that no one evaluated her for this. A review of the original ED provider's chart shows no mention of this complaint. Pt reports onset about 2d ago of blurry vision in both eyes, which improves but incompletely on wearing her corrective lenses. She also had a headache 2d ago at onset of symptoms, but no headache at this time. Pt sent for CT head and will reevaluate. Clara Andrade MD Two days ago the patient started with a headache which she reports was across the bilateral frontal area, different from prior headaches that she had had. Afterwards she had the onset of some blurred vision, and the headache has subsequently resolved. She reports that there has been no change in her blurry vision, although it corrects with placement of her glasses. She denies any associated hearing loss, speech difficulties, or focal numbness/weakness. Physical examination shows bilateral conjunctiva normal, SHI, extraocular movements intact, and no afferent pupillary defect. Lids and lashes are normal, no foreign body with eversion of the lids. Visual acuity, corrected with the patient's glasses, is OS 20/30, OU 20/30. Neurologic examination shows cranial nerves 2-12 intact, sensation intact to light touch throughout, motor strength 5/5 in all four extremities, patellar DTRs symmetrical. [id number] normal, rapid alternating movements normal, gait normal. CT scan of the head, performed secondary to the patient's reported symptoms, shows no acute intracranial pathology. Assessment: Patient at this time has reassuringly normal visual acuity, and normal neurologic examination with no abnormalities. No evidence for stroke. No focal ophthalmologic abnormalities. Patient reassured. [address] Killian aware -- was unable to make contact with me but aware of consult. Presumably will do tele evaluation. 1720 Dr. Villa has seen the patient, and feels that because of her persistent subjective symptoms she requires a more thorough workup. He suggests CTA head and neck currently, and an MRI to be performed in the morning. Patient to be admitted to the hospitalist service, and mental health transfer can proceed after medical workup is completed. [address] iKrk, who will admit. We discussed the patient's presenting symptoms, the proposed workup, and the need for the patient to continue with her mental health observation tonight and with her mental health disposition tomorrow. She will order the MRIs. CT scan is ordered and she will follow. Medical Decision Making Additional information obtaine: old records Findings He is medically cleared for mental health evaluation Differential Dx:Considerations: Include: Alcohol abuse, Anxiety, Bipolar disorder, Conversion disorder, Depression, Encephaloathy, Homicidal, Panic disorder, Personality disorder, Schizophrenia, Substance abuse, Suicidal, Other Departure Time of Disposition: 17:52 Admitted to Inpatient Unit: yes, to hospitalist Impression: Primary Impression: Suicidal ideation Additional Impressions: Depression Mental disorder Blurry vision, bilateral Referrals: NO PRIMARY CARE PROVIDER (PCP) Signature Scribe Signature: h Attestation: Scribed for Fei Sotelo Lithographic Platemaker by Fei Jha NP . 08/28/25 20:48 FEI SOTELO NP Aug 28, 2025 18:01 VALDO ANDRADE MD Aug 29, 2025 13:18
[2025-08-28 19:08] LABS: MEAN PLATELET VOLUME 7.5 FL (7.4-10.4); RED CELL DISTRIBUTION WIDTH 14.4 % (11.5-14.5)
[2025-08-28] MEDS ORDERED: BUSP15TA3 PO (19:10)
[2025-08-28] MEDS ORDERED: ESCI20TA39 PO (19:10)
[2025-08-28] MEDS ORDERED: TRAZ-256 PO (19:10)
[2025-08-28 19:47] LABS: CREATININE 0.51 MG/DL (0.40-0.90); TOTAL CARBON DIOXIDE 28.6 MMOL/L (24-32); eCRCL 63 ML/MIN; eGFR > 90 ML/MIN
[2025-08-28 19:52] LABS: ETHANOL < 10 MG/DL (<10)
[2025-08-28 20:30] LABS: LEUKOCYTE ESTERASE ,URINE NEGATIVE (Neg); NITRITES, URINE NEGATIVE (Neg); OCCULT BLOOD,URINE SMALL (Neg)
[2025-08-28 20:33] LABS: UA COLLECTION TYPE NON-SPECIFIED
[2025-08-28 20:36] LABS: SQUAMOUS EPITHELIAL CELL,UR FEW /LPF (FEW)
[2025-08-28 20:38] LABS: URINE AMPHETAMINE SCREEN NEGATIVE (Neg); URINE BARBITUATE SCREEN NEGATIVE (Neg); URINE BENZODIAZEPINES SCREEN NEGATIVE (Neg); URINE CANNABINOID SCREEN NEGATIVE (Neg); URINE COCAINE SCREEN NEGATIVE (Neg); URINE METHADONE SCREEN NEGATIVE (Neg); URINE OPIATE SCREEN NEGATIVE (Neg); URINE PHENCYCLIDINE SCREEN NEGATIVE (Neg)
[2025-08-29] MEDS ORDERED: BUSP15TA7 PO (01:51)
[2025-08-29] MEDS: pantoprazole 40mg Tablet.DR PO SCH (07:30)
[2025-08-29] MEDS: ESCITALOPRAM 10 mg tablet 10 MG TABLET PO SCH (07:58)
[2025-08-29] MEDS: busPIRone 15mg tablet PO SCH (07:58)
--- NOTE | 2025-08-29 14:04 | RADIOLOGY REPORT ---
Procedure: CT CT HEAD [facility] Study Date and Requested Time: 08/29/2025 01:02 PM History: headache Comparison: MR MRI HEAD on DOS: 05/12/25 Dose: CTDI: 49.19 mGy DLP: 854.73 mGycm Technique: Multiplanar images obtained through the brain without intravenous contrast. Findings: Mild diffuse brain atrophy. Mild chronic small vessel ischemic changes. No hemorrhages, masses, mass effect, midline shift, herniation or cytotoxic edema following a large vascular territory. No intra-axial or extra-axial fluid collections. No evidence of hydrocephalus. The basal cisterns are patent. The pituitary gland, sella and parasellar regions are unremarkable. 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 The cerebellum is unremarkable. The orbits and globes are unremarkable. The paranasal sinuses and mastoids are clear. There are no worrisome calvarial lesions. Impression: No evidence of acute intracranial abnormality.
--- NOTE | 2025-08-29 17:23 | [facility] CONSULT REPORT ---
[facility] Procedure Note [facility] Procedure Note Consult [facility] Note # Demographics Consult Type: General Neurology Patient Location: Emergency Room First Name: ONOFRE Last Name: SIRI Date of : 1950 Age: 75 Gender: Female Facility: [facility] Time of Initial Page (): 08/29/2025 16:47 First Contact with Site (): 08/29/2025 16:48 # HPI History: Here for mental health issues and blurry vision in both eyes. She says she is having double vision but when she closes one eye she says she has blurred vision in each individual eye. Kelby had a headache a few days ago. # Scores Level of Consciousness 1a: [0] = Alert; keenly responsive LOC Questions 1b: [0] = Answers both questions correctly LOC Commands 1c: [0] = Performs both tasks correctly Best Gaze 2: [0] = Normal Visual 3: [0] = No visual loss Facial Palsy 4: [0] = Normal symmetrical movements Motor Arm Left 5a: [0] = No drift Motor Arm Right 5b: [0] = No drift Motor Leg Left 6a: [0] = No drift Motor Leg Right 6b: [0] = No drift Limb Ataxia 7: [0] = Absent Sensory 8: [0] = Normal Best Language 9: [0] = No aphasia Dysarthria 10: [0] = Normal Extinction and Inattention 11: [0] = No abnormality NIHSS Total: 0 # Exam Additional Neurologic Exam: 20/30 visual acuity in each eye. # Data Head CT: - no bleed - per radiologist read # Assessment Impression: - Other Stroke vs mimic # Plan Imaging: (urgency: STAT): - CT Angiogram Head and CT Angiogram Neck AND call back with results if abnormal Imaging: (urgency: routine): - MRI Brain without contrast Other: - If patient has any neurological deterioration please call me back immediately - I have discussed my recommendations with the referring provider - would not pursue stroke work-up if MRI is negative # Logistics Attestation of consult completion: The patient is located at: [facility]. Facility staff participated in the visit. I performed this telem edicine visit from my offsite office utilizing interactive 2 way audio and visual telecommunication technology at the request of the onsite emergency room provider. Total time spent in telemedicine encounter: I spent 21 minutes reviewing clinical data and/or imaging, obtaining history, examining the patient, communicating with the onsite care team, and in preparation of this report. # Demographics First Name: ONOFRE Last Name: SIRI Facility: [facility] Electronically signed at 08/29/2025 17:22 ([place] Time) by Garret Bustos MD Neuro Consult Order placed for: Yes JONI BUSTOS MD Aug 29, 2025 17:23
[2025-08-29] MEDS ORDERED: magnesium hydroxide 30ml (MOM) UD suspension PO PRN (17:55)
[2025-08-29] MEDS: normal saline 1000ml 1,000 ML IV SCH (17:55)
[2025-08-29] MEDS ORDERED: potassium Cl 40MEQ/1/2NS 520ml 520 ML IV PRN (17:55)
[2025-08-29] MEDS ORDERED: magnesium sulf-water 4G/100mL 100 ML IV PRN (17:55)
[2025-08-29] MEDS ORDERED: potassium Cl 20 mEq SR tablet PO PRN ×2 (17:55)
[2025-08-29] MEDS ORDERED: bisacodyl 10mg suppository rectal RC PRN (17:55)
[2025-08-29] MEDS ORDERED: magnesium Cl slow-release 64mg tablet PO PRN (17:55)
[2025-08-29] MEDS ORDERED: magnesium sulf-water 2g/50mL 50 ML IV PRN (17:55)
[2025-08-29] MEDS ORDERED: ondansetron/PF 4mg/2ml inj IV PRN (17:55)
--- NOTE | 2025-08-29 19:11 | RADIOLOGY REPORT ---
INDICATION: Double vision , psychiatric issues COMPARISON: CT head 08/29/2025 TECHNIQUE:CTA neck with intravenous contrast. 3D/MIP image postprocessing was performed and images were used for interpretation and reporting. Radiation Dose Information: CT Dose: CTDI volume is 10.46 mGy. Dose-length product is 381.03 mGy*cm FINDINGS: CTA neck: 3-vessel origin left-sided aortic arch. Bilateral subclavian arteries are unremarkable. Streak artifact from dental amalgam limits evaluation of bilateral cervical ICAs at the level of C2 with artifact from Contrast within the Adjacent venous structure limited evaluation of the proximal right common carotid artery. Otherwise, Bilateral common carotid arteries and Bilateral ICAs are unremarkable. Artifact from dental amalgam limits evaluation of the vertebral arteries at the level of C2 C2. Otherwise, left vertebral artery is unremarkable with slight dominance of the right. CTA head: Bilateral ACAS, anterior communicating artery, bilateral MCAs and bilateral intracranial ICAs are unremarkable. The posterior communicating arteries are visualized. Moderate Hypoplasia of bilateral P1 segments with origin of bilateral railroad accountant. Otherwise, Bilateral railroad accountant, bilateral superior cerebellar arteries, basilar artery and bilateral intracranial vertebral arteries are unremarkable. The dural venous sinuses opacify normally. No abnormal intracranial enhancement. The thyroid gland is unremarkable. Biapical atelectasis. Severe degenerative changes of the cervical spine. IMPRESSION: Artifact from dental amalgam limits evaluation of bilateral cervical ICAs and bilateral cervical vertebral arteries at the level of C2 with streak artifact from contrast within adjacent venous structures limiting evaluation of the proximal right common carotid artery. Otherwise, no hemodynamically significant stenosis, aneurysm or dissection involving the major intracranial and neck vessels.
--- NOTE | 2025-08-29 20:00 | RADIOLOGY REPORT ---
EXAM: MR MRI HEAD CLINICAL HISTORY: Double vision , psychiatric issues COMPARISON: CT CT HEAD on DOS: 08/29/25, MR MRI HEAD on DOS: 05/12/25 TECHNIQUE: Multiplanar, multisequence magnetic resonance imaging of the brain was performed without intravenous contrast. FINDINGS: [id number] Diffuse brain atrophy. Mild chronic small-vessel ischemic changes. Limited evaluation the sensitive sequence due to motion. Otherwise, no hemorrhages, masses, mass effect, midline shift, herniation or cytotoxic edema following large vascular territory. No intra-axial or extra-axial fluid collections. No evidence of hydrocephalus. The basal cisterns are patent. The vascular flow voids are maintained. The pituitary gland, sella parasellar regions unremarkable. The cerebellar tonsils are normal position. The cerebellum is unremarkable. Mild mucoperiosteal thickening of the ethmoid air cells. Otherwise, the sinuses and mastoids are clear. There are No worrisome calvarial lesions. The orbits and globes are unremarkable. The extraocular muscles are unremarkable and symmetric. The optic nerve, optic chiasm and visualized optic tract are unremarkable. IMPRESSION: No evidence of acute intracranial abnormalities.
[2025-08-29] MEDS: heparin, porcine 5000 units/ml vial SQ SCH (20:22)
--- NOTE | 2025-08-29 20:35 | HISTORY AND PHYSICAL ---
History & Physical Providers to CC ~ History of Present Illness Reason for Admit\\Complaint: Double vision and headache noticed Saturday History of Present Illness 74 years old female with known history of insomnia, anxiety, depression, palpitations, hypothyroidism, Dry eyes, Severe protein calorie malnutrition, Chronic back pain, constipation . she was admitted previously to [facility] for suicidal ideation on April 25, 2025, May 03, 2025 . Mentioned to me that on Saturday night she noticed the double vision and headache but she came today because she was still not feeling good and today she mentioned to me that it is not double vision " it is blurry vision." I Examined the patient there was no signs of double vision and she was able to do the finger calculation very accurately. There are no other focal neurological deficit. Patient recognized me and told me more details about her social issues. She had to give her 5-1/2-year-old dogs to somebody and she was feeling very sad. She feels like that she is losing weight and her nutrition is not good and she does not have friends and she is lonely. Patient mentioned to ER doctor that she is having double vision with the headache tele neurology consultation done and they recommended further workup MRI head and CTA head and neck. ER team contacted hospitalist provider's to order those diagnostic test and for further management . As per ER records" 75-year-old female with a known history of depression and previous inpatient psych hold presents today with reported statements of self- harm intent. States that she was going to use a knife to harm herself. She feels hopeless and life. Additionally this patient has been seen by multiple mental health professionals and she acknowledges that he she has repeatedly not followed the advice that she has been given. States that she knows she is self destructive.I have Seen multiple times this patient in Behavioral Health unit and she is at her baseline mental status. Allergies: Coded Allergies: quetiapine (Verified Allergy, Intermediate, increased anxiety, 08/28/25) Sulfa (Sulfonamide Antibiotics) (Verified Allergy, Unknown, 08/28/25) Home Medications Home Medications Active Thera Tablet (Multivitamin with Folic Acid) 400 Mcg Tablet 1 Each PO DAILY 30 Days Pantoprazole Sodium 40 Mg Tablet.dr 40 Mg PO BKF 30 Days Polyvinyl Alcohol 1.4 % Drops 1 Drop EACHEYE Q6H PRN 30 Days Mirtazapine 30 Mg Tablet 1 Tab PO HS 30 Days Levothyroxine Sodium 50 Mcg Tablet 1 Tab PO DAILY 30 Days Reported Escitalopram Oxalate 20 Mg Tablet 1 Tab PO DAILY Trazodone HCl 100 Mg Tablet 1 Tab PO HS Buspirone HCl 15 Mg Tablet 1 Tab PO TID Past Medical History Past Medical History history of insomnia, anxiety, depression, palpitations, hypothyroidism, Dry eyes, Severe protein calorie malnutrition, Chronic back pain, constipation Past Surgical History Surgical History Comment no surgical history Family History Family History: Patient reports no known family medical history. Past Social History Social History Comment Patient denies use of any alcohol tobacco or any recreational drugs. ROS ROS Review of system as mentioned above in HPI rest of the review of system unremarkable Exam Vitals: Vital Signs Date Time Temp Pulse Resp B/P (MAP) Pulse Ox O2 Delivery O2 Flow Rate FiO2 08/29/25 19:04 16 08/29/25 17:17 97.9 83 95 0 General: General-patient not in any acute distress, alert awake age-appropriate, looks comfortable HEENT-atraumatic normocephalic, neck supple without elevated JVD, No lymphadenopathy bilaterally. Eyes-no icterus or pallor seen in eyes. patient is wearing glasses but no signs of double vision on exam Chest-clear to auscultation bilaterally, breathing nonlabored no tachypnea, no wheezing, no crepitation, no crackles. Heart-S1-S2 normal, regular heart rate no murmur Abdomen bowel sounds positive on auscultation, soft nondistended nontender no guarding, no rigidity Skin no active skin rash Neurology-grossly intact, nonfocal alert awake cooperated during physical examination. No focal neurological deficit no arm drift no drooping of angle of mouth speech normal Extremity- no pedal edema able to move all 4 extremities, Psychiatry-patient appeared depressed Diagnostic Data Last Recorded Lab Results: 08/28/25182708/28/251827 Additional Plan 75 years old female with a history of insomnia, anxiety, depression, palpitations, hypothyroidism, she has been admitted at [facility] for suicidal ideation multiple times. 1. Double vision-tele neurology consultation reviewed,MRI head and CTA head and neck and further stroke workup ordered 2. Hypothyroidism: Continue levothyroxine 3. Severe protein calorie malnutrition with a BMI of 17.2. Continue ensure t.i.d. 4. Dry eyes : We will do home medication reconciliation 5. Chronic back pain : Non narcotic medications as needed 6 MiraLax ordered for constipation 7. Suicide ideation: Sitter ordered patient will need. Patient with needs psych evaluation in a.m. Patient's current condition is guarded we will continue to follow patient in a.m. Date of Service: Aug 29, 2025 Billing Provider: REBECCA BELL MD Common Visit Codes: [id number] INP/OBS CARE (HIGH) REBECCA BELL MD Aug 29, 2025 20:35
[2025-08-29] MEDS: polyethylene glycol 3350 17gm powd pack PO SCH (21:00)
[2025-08-29 21:20] VITALS: BP 106/54; PULSE 74; RESP 15; TEMP 97.5; O2SAT 95
[2025-08-30] VITALS (10 sets, daily range): BP systolic 91–145; BP diastolic 43–78; PULSE 71–78; RESP 14–16; TEMP 97.3–98.1; O2SAT 96–98
[2025-08-30 05:39] LABS: MEAN PLATELET VOLUME 7.5 FL (7.4-10.4); RED CELL DISTRIBUTION WIDTH 14.7 % (11.5-14.5)
[2025-08-30 06:17] LABS: CREATININE 0.64 MG/DL (0.40-0.90); TOTAL CARBON DIOXIDE 26.6 MMOL/L (24-32); eCRCL 50 ML/MIN; eGFR 90 ML/MIN
[2025-08-30 06:51] LABS: CHOL/HDL RATIO 3.3 (0.00-4.99); LDL CHOLESTEROL 152 MG/DL (50-100)
[2025-08-30] MEDS: aspirin 81mg, enteric-coated 1 TAB TABLET.DR PO SCH (08:03)
[2025-08-30] MEDS: ENSURE CLEAR - 237ml PO SCH (08:28)
--- NOTE | 2025-08-30 13:36 | PROGRESS NOTE ---
Daily Progress Note Providers to CC ~ Antibiotic Timeout Antibiotic Ordered?: No Subjective Patient is seen in her room looks comfortable no other new concerns. Objective Vital Signs Date Time Temp Pulse Resp B/P (MAP) Pulse Ox O2 Delivery O2 Flow Rate FiO2 08/30/25 12:00 98.1 74 16 106/58 (74) 96 Room Air 08/30/25 10:00 0.0 Result Diagram: 08/30/2542308/30/25423 General-patient not in any acute distress, alert awake age-appropriate, looks comfortable HEENT-atraumatic normocephalic, neck supple without elevated JVD, No lymphadenopathy bilaterally. Eyes-no icterus or pallor seen in eyes. patient is wearing glasses but no signs of double vision on exam Chest-clear to auscultation bilaterally, breathing nonlabored no tachypnea, no wheezing, no crepitation, no crackles. Heart-S1-S2 normal, regular heart rate no murmur Abdomen bowel sounds positive on auscultation, soft nondistended nontender no guarding, no rigidity Skin no active skin rash Neurology-grossly intact, nonfocal alert awake cooperated during physical examination. No focal neurological deficit no arm drift no drooping of angle of mouth speech normal Extremity- no pedal edema able to move all 4 extremities, Psychiatry-patient appeared depressed Problem\Assessment\Plan 75 years old female with a history of insomnia, anxiety, depression, palpitations, hypothyroidism, she has been admitted at [facility] for suicidal ideation multiple times. 1. Double vision-tele neurology consultation reviewed,MRI head and CTA head and neck in unremarkable for acute CVA. further stroke workup ordered 2. Hypothyroidism: Continue levothyroxine 3. Severe protein calorie malnutrition with a BMI of 17.2. Continue ensure t.i.d. 4. Dry eyes : We will do home medication reconciliation 5. Chronic back pain : Non narcotic medications as needed 6 MiraLax ordered for constipation 7. Suicide ideation: Sitter ordered patient will need. Patient with needs psych evaluation in a.m. Patient's current condition is guarded we will continue to follow patient in a.m. PATIENT IS MEDICALLY CLEAR FOR PSYCHIATRIC EVALUATION FROM [facility]. Date of Service: Aug 30, 2025 Billing Provider: REBECCA BELL MD Common Visit Codes: [id number] INP/OBS CARE(HIGH) REBECCA BELL MD Aug 30, 2025 13:36
[2025-08-30] MEDS ORDERED: polyvinyl alcohol eye drops 15ML BOTTLE EACHEYE PRN (13:40)
[2025-08-30] MEDS ORDERED: busPIRone 15mg tablet PO SCH (21:00)
[2025-08-31 02:00] VITALS: BP 142/74; PULSE 69; RESP 15; TEMP 97.7; O2SAT 99
[2025-08-31 05:45] LABS: MEAN PLATELET VOLUME 7.5 FL (7.4-10.4); RED CELL DISTRIBUTION WIDTH 14.3 % (11.5-14.5)
[2025-08-31 06:00] VITALS: BP 128/77; PULSE 93; RESP 14; TEMP 97.6; O2SAT 98
[2025-08-31 06:07] LABS: CREATININE 0.62 MG/DL (0.40-0.90); TOTAL CARBON DIOXIDE 28.4 MMOL/L (24-32); eCRCL 52 ML/MIN; eGFR > 90 ML/MIN
[2025-08-31] MEDS ORDERED: pantoprazole 40mg Tablet.DR PO SCH (07:30)
[2025-08-31] MEDS ORDERED: ESCITALOPRAM 10 mg tablet 10 MG TABLET PO SCH (08:00)
[2025-08-31] MEDS: multivitamins, therapeutics tablet PO SCH (09:22)
[2025-08-31] MEDS: levoTHYROXINE 25mcg tablet PO SCH (09:22)
[2025-08-31 10:00] VITALS: BP 125/75; PULSE 71; RESP 15; TEMP 97.7; O2SAT 99
[2025-08-31 14:00] VITALS: BP 132/71; PULSE 69; RESP 15; TEMP 97.3; O2SAT 99
[2025-08-31 18:00] VITALS: BP 129/44; PULSE 76; TEMP 98.2; O2SAT 97
--- NOTE | 2025-08-31 18:44 | PROGRESS NOTE ---
Daily Progress Note Providers to CC ~ Antibiotic Timeout Antibiotic Ordered?: No Subjective [place] [address] which is renewed. Bed is not available in Behavioral Health unit patient is going to stay on ortho floor for now. Objective Vital Signs Date Time Temp Pulse Resp B/P (MAP) Pulse Ox O2 Delivery O2 Flow Rate FiO2 08/31/25 14:00 97.3 69 15 132/71 (91) 99 08/31/25 10:00 Room Air 08/30/25 10:00 0.0 Result Diagram: 08/31/25 0504 08/31/25 0504 General-patient not in any acute distress, alert awake age-appropriate, looks comfortable HEENT-atraumatic normocephalic, neck supple without elevated JVD, No lymphadenopathy bilaterally. Eyes-no icterus or pallor seen in eyes. patient is wearing glasses but no signs of double vision on exam Chest-clear to auscultation bilaterally, breathing nonlabored no tachypnea, no wheezing, no crepitation, no crackles. Heart-S1-S2 normal, regular heart rate no murmur Abdomen bowel sounds positive on auscultation, soft nondistended nontender no guarding, no rigidity Skin no active skin rash Neurology-grossly intact, nonfocal alert awake cooperated during physical examination. No focal neurological deficit no arm drift no drooping of angle of mouth speech normal Extremity- no pedal edema able to move all 4 extremities, Psychiatry-patient appeared depressed Problem\Assessment\Plan 75 years old female with a history of insomnia, anxiety, depression, palpitations, hypothyroidism, she has been admitted at [facility] for suicidal ideation multiple times. 1. Double vision-tele neurology consultation reviewed,MRI head and CTA head and neck in unremarkable for acute CVA. further stroke workup ordered 2. Hypothyroidism: Continue levothyroxine 3. Severe protein calorie malnutrition with a BMI of 17.2. Continue ensure t.i.d. 4. Dry eyes : We will do home medication reconciliation 5. Chronic back pain : Non narcotic medications as needed 6 MiraLax ordered for constipation 7. Suicide ideation: Sitter ordered patient will need. Patient with needs psych evaluation in a.m. Patient's current condition is guarded we will continue to follow patient in a.m. PATIENT IS MEDICALLY CLEAR FOR PSYCHIATRIC EVALUATION FROM [facility]. Date of Service: Aug 31, 2025 Billing Provider: REBECCA BELL MD Common Visit Codes: [id number] INP/OBS CARE(HIGH) REBECCA BELL MD Aug 31, 2025 18:44
--- NOTE | 2025-08-31 19:35 | ELECTROCARDIOGRAPH REPORT ---
[facility] Test Date: 2025-08-31 Test Time: 19:33:24 Pat Name: ONOFRE HORNER Department: [facility] 4S Patient ID: [id number] Room: [place] [address] A Gender: F Ancillary Services Manager Therapy: : 1950 Requested By: CRISTOBAL DESAI Order Number: [id number] Reading MD: Dr. Juan Monge Measurements Intervals [place] Rate: 72 P: 79 MD: 141 QRS: 60 QRSD: 82 T: 68 QT: 358 QTc: 392 Interpretive Statements Sinus rhythm RSR' in V1 or V2, probably normal variant Electronically Signed On 09-01-2025 6:51:[address] Juan Monge Please click the below link to view image of tracing.
[2025-08-31 22:00] VITALS: BP 109/60; PULSE 74; RESP 15; TEMP 97.9; O2SAT 99
[2025-09-01 06:00] VITALS: BP 129/62; PULSE 99; RESP 17; TEMP 97.7; O2SAT 99
[2025-09-01 06:19] LABS: MEAN PLATELET VOLUME 7.5 FL (7.4-10.4); RED CELL DISTRIBUTION WIDTH 14.0 % (11.5-14.5)
[2025-09-01 07:01] LABS: CREATININE 0.62 MG/DL (0.40-0.90); TOTAL CARBON DIOXIDE 29.1 MMOL/L (24-32); eCRCL 52 ML/MIN; eGFR > 90 ML/MIN
[2025-09-01 10:00] VITALS: BP 131/74; PULSE 82; RESP 17; TEMP 97.6; O2SAT 93
[2025-09-01] MEDS ORDERED: TRAZ-256 PO (10:29)
--- NOTE | 2025-09-01 17:33 | CARDIOLOGY REPORT ---
APPROVED REPORT EXAM: Comprehensive 2D, Doppler, and color-flow Echocardiogram. Patient Location: 4[address] Blood Pressure: 106/58 mmHg Heart Rate: 72 bpm Rhythm: SINUS Indications TRANSIENT ISCHEMIC ATTACK Small Stock Facer: Jeff Sotelo DO Previous echo: 04/18/25 [facility] (EF 60-65%, trace MR, mild TR) 2D Dimensions IVSd 0.8 (0.7-1.1cm) LVDd 3.5 cm PWd 1.0 (0.7-1.1cm) IVSs 1.1 (0.8-1.2cm) LVDs 2.0 (2.5-4.0cm) PWs 1.3 (0.8-1.2cm) LVOT Diameter 1.78 (1.8-2.4cm) LVEF(%) 70.4 (>50%) FS (%) 44.1 % SV 38.6 ml CO 2.8 L/min M-Mode Dimensions Left Atrium(MM) 2.01 (2.5-4.0cm) Aortic Root 3.15 (2.2-3.7cm) Aortic Cusp Exc 1.64 (1.5-2.0cm) MV EPSS 0.2 (<0.5cm) Aortic Valve AoV Peak Anshu. 144.6 cm/s AoV VTI 24.4 cm AO Peak GR. 8.4 mmHg AO Mean GR. 4 mmHg LVOT VTI 21.50 cm LVOT Peak Anshu. 107.4 cm/s MARYLIN(VTI)/BSA 2.19 cm2/m2 MARYLIN (VTI) 2.19 cm2 AV DI 0.88 % Mitral Valve MV E Velocity 77.8 cm/s MV Peak Gr. 3 mmHg MV DECEL TIME 172 ms MV A Velocity 72.3 cm/s MV PHT 56 ms E/A Ratio 1.1 MVA (PHT) 3.93 cm2 MV VMax 84.6 cm/s TDI Medial E' P. V 10.47 cm/s E/Medial E' 7.4 Tricuspid Valve TR P. Velocity 257 cm/s RAP ESTIMATE 5 mmHg TR Peak Gr. 26 mmHg RVSP 31 mmHg Pulmonary Vein S1 Velocity 70.2 cm/s D2 Velocity 58.8 cm/s PVa Velocity 32.6 cm/s PVa Duration 80 msec LEFT VENTRICLE Normal LV size and wall thickness. Overall systolic function is normal. LVEF is 65-70%. RIGHT VENTRICLE RV is normal size and function. ATRIA The left atrium size is normal. AORTIC VALVE Trileaflet AV appears mildly sclerotic without stenosis or insufficiency. MITRAL VALVE Mild MV annular calcification without stenosis. Trace regurgitation. TRICUSPID VALVE TV appears structurally normal with mild regurgitation. PULMONIC VALVE Normal PV without stenosis, physiologic insufficiency. GREAT VESSELS Aortic root is normal in size. The IVC is normal in size and collapses greater than 50% with inspiration. PERICARDIUM Normal pericardium. No effusion. Other Information Study Quality: Adequate Conclusion Normal LV size and wall thickness. Overall systolic function is normal. LVEF is 65-70%. RV is normal size and function. The left atrium size is normal. Trileaflet AV appears mildly sclerotic without stenosis or insufficiency. Mild MV annular calcification without stenosis. Trace regurgitation. TV appears structurally normal with mild regurgitation. Normal pericardium. No effusion.
--- NOTE | 2025-09-01 18:20 | DISCHARGE SUMMARY ---
Discharge Summary Providers to CC ~ Discharge Summary Admission Diagnosis: double Vision, suicidal ideation, chronic psychiatric issues Hospital Course DATE OF ADMISSION: August 29, 2025 DATE OF DISCHARGE:September 01, 2025 CBC testing done on September 01, 2025 WBC 4.9, hemoglobin 12.4 hematocrit 36.3 platelet count 246. CMP done on September 01, 2025 sodium 138 potassium 4.0 creatinine 0.62 GFR 90 normal liver enzymes. Lipid panel showing triglyceride 75 total cholesterol 228 LDL 152 HDL 70. Urine toxicology negative. Serology COVID negative . Urine testing showed no signs of acute UTI ECHOCARDIOGRAMConclusion Normal LV size and wall thickness. Overall systolic function is normal. LVEF is 65-70%. RV is normal size and function. The left atrium size is normal. Trileaflet AV appears mildly sclerotic without stenosis or insufficiency. Mild MV annular calcification without stenosis. Trace regurgitation. TV appears structurally normal with mild regurgitation. Normal pericardium. No effusion. MRI HEADIMPRESSION: No evidence of acute intracranial abnormalities. CTA NECK/HEADIMPRESSION: Artifact from dental amalgam limits evaluation of bilateral cervical ICAs and bilateral cervical vertebral arteries at the level of C2 with streak artifact from contrast within adjacent venous structures limiting evaluation of the proximal right common carotid artery. Otherwise, no hemodynamically significant stenosis, aneurysm or dissection involving the major intracranial and neck vessels. CT HEADImpression: No evidence of acute intracranial abnormality. Discharge Diagnosis\\Comment: 1. Double vision resolved 2. Hypothyroidism 3. Severe protein calorie malnutrition with a BMI of 17.2. 4. Dry eyes 5. Chronic back pain 6 chronic constipation 7. Suicide ideation Operations\\Procedures: None Consultants: None Complications: None Condition on DC: Stable Discharge Summary: As per my history and physical note" 75 years old female with known history of insomnia, anxiety, depression, palpitations, hypothyroidism, Dry eyes, Severe protein calorie malnutrition, Chronic back pain, constipation . she was admitted previously to [facility] for suicidal ideation on April 25, 2025, May 03, 2025 . Mentioned to me that on Saturday night she noticed the double vision and headache but she came today because she was still not feeling good and today she mentioned to me that it is not double vision " it is blurry vision." I Examined the patient there was no signs of double vision and she was able to do the finger calculation very accurately. There are no other focal neurological deficit. Patient recognized me and told me more details about her social issues. She had to give her 5-1/2-year-old dogs to somebody and she was feeling very sad. She feels like that she is losing weight and her nutrition is not good and she does not have friends and she is lonely. Patient mentioned to ER doctor that she is having double vision with the headache tele neurology consultation done and they recommended further workup MRI head and CTA head and neck. ER team contacted hospitalist provider's to order those diagnostic test and for further adriano kunz . As per ER records" 75-year-old female with a known history of depression and previous inpatient psych hold presents today with reported statements of self- harm intent. States that she was going to use a knife to harm herself. She feels hopeless and life. Additionally this patient has been seen by multiple mental health professionals and she acknowledges that he she has repeatedly not followed the advice that she has been given. States that she knows she is self destructive.I have Seen multiple times this patient in Behavioral Health unit and she is at her baseline mental status." 75 years old female with a history of insomnia, anxiety, depression, palpitations, hypothyroidism, she has been admitted at [facility] for suicidal ideation multiple times. 1. Double vision-tele neurology consultation reviewed,MRI head and CTA head and neck in unremarkable for acute CVA. further stroke workup reviewed 2. Hypothyroidism: Continue levothyroxine 3. Severe protein calorie malnutrition with a BMI of 17.2. Continue ensure t.i.d. 4. Dry eyes : We will do home medication reconciliation 5. Chronic back pain : Non narcotic medications as needed 6 MiraLax ordered for constipation 7. Suicide ideation: Sitter ordered patient will need. Patient needed psych evaluation Patient's current condition is guarded we will continue to follow patient in a.m. PATIENT IS MEDICALLY CLEAR FOR PSYCHIATRIC EVALUATION FROM [facility]. Patient was evaluated by [facility] and put on hold. She is today transferred to Behavioral Health unit. she has been afebrile and getting discharged to Behavioral Health unit in stable condition. Patient is seen and examined on the day of discharge. All labs, diagnostic workup and discharge plan discussed with patient before her discharge. All questions and queries answered to the best of my professional medical knowledge. I heard patient's concerns and address appropriately. Patient was cleared by Physical therapy team for discharge information services manager involved in patient's discharge plan. General-patient not in any acute distress, alert awake age-appropriate, looks comfortable HEENT-atraumatic normocephalic, neck supple without elevated JVD, No lymphadenopathy bilaterally. Eyes-no icterus or pallor seen in eyes. patient is wearing glasses but no signs of double vision on exam Chest-clear to auscultation bilaterally, breathing nonlabored no tachypnea, no wheezing, no crepitation, no crackles. Heart-S1-S2 normal, regular heart rate no murmur Abdomen bowel sounds positive on auscultation, soft nondistended nontender no guarding, no rigidity Skin no active skin rash Neurology-grossly intact, nonfocal alert awake cooperated during physical examination. No focal neurological deficit no arm drift no drooping of angle of mouth speech normal Extremity- no pedal edema able to move all 4 extremities, Psychiatry-patient appeared depressed *Problems/Diagnosis: (1) Suicidal ideation Status: Acute Total Time Spent on D/C: > 30 Minutes Date of Service: Sep 01, 2025 Billing Provider: REBECCA BELL MD Common Visit Codes: [id number] DISCH DAY >30min REBECCA BELL MD Sep 01, 2025 18:15
[2025-09-01 18:30] VITALS: BP 147/86; PULSE 65; RESP 15; TEMP 97.2; O2SAT 98
[2025-09-01] MEDS ORDERED: LEVO50TA8 PO (23:33)
[2025-09-01] MEDS ORDERED: MIRT-67 PO (23:33)
[2025-09-01] MEDS ORDERED: MULT-25 PO (23:33)
[2025-09-01] MEDS ORDERED: PANT40TA54 PO (23:33)
[2025-09-01] MEDS ORDERED: POLY15DR43 EACHEYE (23:33)
[2025-09-01] MEDS ORDERED: MIRT-88 PO (23:37)
== END 2025-09-01 20:55 | DRG 124 ==
LOC: ER 17:37 → ED HOLD 08-29 17:58 → ORTHO 4S 08-29 20:50
PROVIDERS: ADMIT Internal Medicine; ATTEND Internal Medicine
PROC: B3251ZZ Computerized Tomography (CT Scan) of Bilateral Common Carotid Arteries using Low Osmolar Contrast (ICD-10-PCS; principal; 2025-08-29)
PROC: B32G1ZZ Computerized Tomography (CT Scan) of Bilateral Vertebral Arteries using Low Osmolar Contrast (ICD-10-PCS; 2025-08-29)
PROC: B32R1ZZ Computerized Tomography (CT Scan) of Intracranial Arteries using Low Osmolar Contrast (ICD-10-PCS; 2025-08-29)
PROC: B3281ZZ Computerized Tomography (CT Scan) of Bilateral Internal Carotid Arteries using Low Osmolar Contrast (ICD-10-PCS; 2025-08-29)
DX: H53.8 Other visual disturbances (principal); E43 Unspecified severe protein-calorie malnutrition; F32.A Depression, unspecified; E03.9 Hypothyroidism, unspecified; R45.851 Suicidal ideations; Z68.1 Body mass index [BMI] 19.9 or less, adult; Z20.822 Contact with and (suspected) exposure to COVID-19; M54.89 Other dorsalgia; G89.29 Other chronic pain; F41.9 Anxiety disorder, unspecified; G47.00 Insomnia, unspecified; Z79.899 Other long term (current) drug therapy; Z88.2 Allergy status to sulfonamides; Z88.8 Allergy status to other drugs, medicaments and biological substances
CPT/HCPCS: 36415; 70450; 70496; 70498; 70551; 80048; 80053; 80061; 80178; 80305; 80320; 81001; 84443; 84484; 85025; 87081; 87811; 93005; 93306; 99285; G0378; J1644; J7030; Q9967